=== PATIENT | male | born 1930 | race Caucasian/White ===

== ENCOUNTER 2017-08-06 07:15 | Inpatient (IN) | payer MEDICARE ==
[2017-08-06] MEDS ORDERED: Vancomycin(*) 1,000 MG in NS 0.9% 250 ML* 250 ML IVPB ONE (08:03)
[2017-08-06] MEDS ORDERED: Cefepime(*) 1 GM in NS 0.9% 50 ML* 50 ML IVPB ONE (08:03)
--- NOTE | 2017-08-06 08:45 | RAD ---
INDICATION: Sepsis. COMPARISON: Comparison is made with a prior CT of the chest from June 19, 2016 and a prior chest x-ray study from July 08, 2016. TECHNIQUE: A portable view of the chest was obtained. FINDINGS: The heart appears to be within normal limits in size. There is a retrocardiac density which correlates with a moderate sized lateral hernia on the prior CT study. The lungs are underinflated there are small bibasilar infiltrates. No pleural effusion is seen. IMPRESSION: LOW LUNG VOLUMES, SMALL BIBASILAR INFILTRATES.
[2017-08-06 08:46] LABS: Hematocrit 39 % (42-52); Hemoglobin 13.2 g/dl (14.0-18.0); Mean Corpuscular HGB Conc 34 g/dl (31-36); Mean Corpuscular Hemoglobin 31 pg (27-31); Mean Corpuscular Volume 92 fL (80-94); Mean Platelet Volume 9 um3 (7.4-10.4); Red Cell Distribution Width 14 % (10.5-15); White Blood Count 12.7 10^3/ul (3.5-10.8)
[2017-08-06 08:54] LABS: Urine Bacteria Absent (Absent); Urine Bilirubin Negative (Negative); Urine Glucose 2+(150 mg/dL) (Negative); Urine Nitrite Negative (Negative)
[2017-08-06 08:59] LABS: Albumin 3.8 g/dL (3.2-5.2); BUN/Creatinine Ratio 27.8 (8-20); C Reactive Protein 223.67 mg/L (< 5.00); Calcium 10.1 mg/dL (8.6-10.3); EGFR African American 49.6 (>60); EGFR Non-African American 38.6 (>60); Globulin 3.5 g/dL (2-4); Potassium 3.8 mmol/L (3.5-5.0); Total Bilirubin 4.8 mg/dL (0.2-1.0); Total Protein 7.3 g/dL (6.4-8.9)
[2017-08-06 09:39] LABS: Troponin I 0.08 ng/mL (<0.04)
[2017-08-06] MEDS ORDERED: NS 0.9% 1000 ML* 1,000 ML IV ONE ×2 (10:12→10:29)
--- NOTE | 2017-08-06 10:25 | RAD ---
Indication: Upper abdominal pain. Real-time sonography of the right upper quadrant was performed. The patient is combative and therefore limited in evaluation. The liver is normal in size measuring 17.4 cm in length. The gallbladder demonstrates multiple echogenic foci without definite shadowing or movement. This may represent tumefactive sludge. The gallbladder is markedly distended which may be due to prolonged fasting. The right kidney shows no hydronephrosis measuring 9.8 x 4.0 x 4.5 cm. IMPRESSION: Sludge in a distended gallbladder. No biliary duct dilatation is noted.
[2017-08-06] MEDS ORDERED: NS 0.9% 50 ML* 50 ML ONE (10:35)
[2017-08-06] MEDS ORDERED: Piperacillin/Tazobac (*) 3.375 GM ADDV.VIAL ONE (11:24)
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
[2017-08-06] MEDS ORDERED: Dextrose 50% Syringe 50 ML* 25 GM/50 ML SYRINGE IV PUSH PRN (12:21)
[2017-08-06] MEDS ORDERED: NS 0.9% 1000 ML* 1,000 ML IV SCH (12:30)
[2017-08-06] MEDS ORDERED: Vancomycin per Pharmacy* NOTE FOLLOW UP SCH (13:00)
--- NOTE | 2017-08-06 13:42 | RAD ---
INDICATION: Sepsis of unclear etiology, elevated liver enzymes. COMPARISON: Comparison is made with a prior CT of the chest, abdomen and pelvis from June 19, 2016. TECHNIQUE: A CT scan of the chest, abdomen and pelvis was performed without intravenous or oral contrast. Contiguous axial sections were obtained from the lung apices through the symphysis pubis. Images were reconstructed in the coronal and sagittal planes. FINDINGS: There are small dependent bilateral lower lobe infiltrates most consistent with atelectasis less likely pneumonia. No significant enlarged mediastinal or hilar lymph nodes are seen. The heart is mildly enlarged. No pericardial effusion is present. There are coronary artery calcifications present. The thoracic aorta is normal in caliber. The liver and spleen are normal in size without significant focal abnormality on this noncontrast study. The gallbladder is distended with faint calcified gallstones. No pericholecystic fluid is noted. The pancreas appears atrophic and otherwise unremarkable. The adrenal glands appear to be within normal limits. The right kidney is small in size. There are multiple left renal cysts present. No renal calculi are seen. The urinary bladder is distended with slight bladder wall thickening and cystic change recommend correlation for cystitis. There is a cyst located posterior to the urinary bladder on the right side possibly representing a bladder diverticulum measuring 3.9 x 3.1 cm in size which is unchanged from the prior study. The aorta is normal in caliber and there is moderate calcific plaque present. No significant enlarged retroperitoneal lymph nodes are seen. There is a moderate size hiatal hernia. The stomach, small and large bowel appear nondistended. There is moderate descending and sigmoid diverticulosis. There is no evidence for diverticulitis or colitis. No free intraperitoneal air or fluid is seen. There is enlargement of the disc space at the T8-T9 level with erosive change in the inferior endplate of the T8 vertebra and superior endplate of the T9 vertebra which is unchanged from the prior exam without new soft tissue swelling or fluid collection most consistent with a chronic discitis osteomyelitis. IMPRESSION: 1. SMALL DEPENDENT BILATERAL LOWER LOBE INFILTRATES MOST CONSISTENT WITH ATELECTASIS LESS LIKELY PNEUMONIA. 2. DISTENDED GALLBLADDER WITH SMALL GALLSTONES WITHOUT EVIDENCE FOR GALLBLADDER WALL THICKENING OR PERICHOLECYSTIC FLUID. 3. WALL THICKENING AND CYSTIC CHANGE WITHIN THE URINARY BLADDER POSSIBLY RELATED TO CHRONIC DISEASE ALTHOUGH ACUTE CYSTITIS CANNOT BE EXCLUDED. RECOMMEND CLINICAL CORRELATION. 4. 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
[2017-08-06] MEDS ORDERED: Morphine INJ* 2 MG/ML 1 ML SYRINGE (TWO MG - NEW SYRINGE VERSION) IV PRN (13:55)
[2017-08-06] MEDS ORDERED: traMADol TAB* 50 MG PO PRN ×2 (13:57→14:22)
[2017-08-06 14:36] LABS: TSH (Thyroid Stimulating Horm) 2.48 mcIU/mL (0.34-5.60)
[2017-08-06] MEDS: Pantoprazole IV* 40 MG IV SCH (15:12)
[2017-08-06] MEDS: Morphine INJ* 2 MG/ML 1 ML SYRINGE (TWO MG - NEW SYRINGE VERSION) IV PRN ×2 (16:31→21:22)
[2017-08-06] MEDS: Nystatin CREAM* 15 GM TUBE TOPICAL SCH ×2 (16:33→21:12)
--- NOTE | 2017-08-06 16:38 | HP ---
HISTORY AND PHYSICAL: DATE OF ADMISSION: 08/06/17 PROVIDER: AKILAH Barragan ATTENDING PHYSICIAN: Dr. Choi * (report dictated by Tawanna Brock NP) PRIMARY CARE PROVIDER: PABLO Sanchez CHIEF COMPLAINT: Altered mental status and abdominal pain. HISTORY OF PRESENT ILLNESS: Mr. Eagle is an 87-year-old male with a past medical history of dementia; history of failure to thrive; non-insulin- dependent type 2 diabetes; hypothyroidism; hypertension; COPD; and history of severe sepsis secondary to liver abscess in April 2016 with prolonged hospitalization in which he had a liver percutaneous strain and his hospitalization was complicated by heparin- induced thrombocytopenia and in left upper extremity DVT secondary to his PICC line. Today, he is brought to the emergency department and accompanied by his son, Stephen, who is his healthcare proxy along with the patients personal aide. It is reported over the past 2 days, he has complained of abdominal pain and felt that he was constipated. Last night, it was noted that he was confused and he was brought to the emergency department for further evaluation in the middle of the night. In the emergency department, it is noted that he meets sepsis criteria presenting with tachycardia, elevated lactic acid, and elevated troponin and a leukocytosis. As well, it is noted that his liver enzymes and total bilirubin are elevated and has a CRP of 223. Per family, the patient is normally alert and oriented x3 with some mild dementia, but is able to live at home alone with help of an aide and it is reported that he has been doing well. Approximately a year ago, he was admitted to [facility] with a diagnosis of failure to thrive and was seen at hospice at that time and he was sent to subacute rehab in which he was never signed on this hospice and did well recovering and able to thrive again. Per the son the last year, he has been doing quite well and [facility]. It is reported that prior to the 2 days of complaining of abdominal pain and constipation, he has been doing well. However, he has had some ongoing intermittent chronic wounds on his bottom, which are reported by the family and the aide to get better and then worse and then better and currently has been fairly red the last several weeks with some noted skin breakdown close to the gluteal folds. He wears a undergarment and is incontinent of urine and stool and frequently refuses being changed or showered. On evaluation in the emergency department, the patient is lying on the emergency department stretcher with his eyes closed moaning. He does follow commands and open his eyes. He is able to tell me his name and date of and he recognizes his son. He reports he is moaning because his abdomen hurts and he points to his right upper quadrant. There have been no noted fevers. No vomiting. He had a bowel movement this morning, which was formed without any signs of blood. He denies headache or vision changes. He reports generalized weakness. I spoke with the son and healthcare proxy, Stephen, who does confirm he is a DNR and DNI, but would like aggressive treatment to treat the sepsis and find the source. The patient's vital signs are stable at this time. He received 2 L of normal saline in the emergency department so far and was given vancomycin and cefepime. PAST MEDICAL HISTORY: 1. History of sacral decubiti. 2. Dementia. 3. History of failure to thrive 4. Qzw-eqjiohg-jfzavjptz type 2 diabetes. 5. Hypothyroidism. 6. Hypertension. 7. COPD. 8. History of left upper extremity DVT secondary to PICC insertion. 9. 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 Please note that this was discovered on his hospital admission in April 2016. 10. History of severe sepsis requiring prolonged hospitalization from 04/08/16 to 05/01/16, in which he was found to have a liver abscess undergoing a percutaneous drain with hospitalization complicated by heparin-induced thrombocytopenia. 11. Gout. 12. Peptic ulcer disease. CURRENT MEDICATIONS: 1. Codeine. 2. Heparin. 3. Hydromorphone. 4. Penicillin. 5. Xarelto. CODE STATUS: DNR/DNI. FAMILY HISTORY: Reviewed and noncontributory. SOCIAL HISTORY: The patient currently lives at home in his own home with help from a home health aide as well as he has 2 sons. His son, Stephen, is the healthcare proxy. He has a distant history of smoking cigars in the past. His healthcare proxy's name is Ramses Jasso" Fco, phone number [phone]. REVIEW OF SYSTEMS: A 14-point review of systems was performed, other pertinent positives and negatives as mentioned in history of present illness, otherwise negative. Please note that the patient is very lethargic on examination and is likely to be a poorly historian. PHYSICAL EXAMINATION VITAL SIGNS: Temperature 98.9, heart rate 92, respirations 17, O2 sat 95% on room air, blood pressure 126/75. HEENT: Head is normocephalic, atraumatic. Pupils are equal and reactive to light. Oropharynx is clear. Dry mucous membranes. Multiple missing teeth on his bottom lower gum. He has 2 teeth, which appeared to be in very poor dentition. No oropharyngeal erythema or edema. No oral lesions noted. NECK: Supple. No JVD noted. LUNGS: Clear to auscultation bilaterally. Good aeration throughout. CARDIAC: S1, S2. Regular rate and rhythm. No murmur, rub, or gallop appreciated. No lower extremity edema noted. ABDOMEN: Soft, distended, round, hypoactive bowel sounds, tenderness to right upper quadrant and left upper quadrant. Slight guarding. EXTREMITIES: No clubbing, cyanosis, or edema. NEURO: Alert, lying in bed with eyes closed. Responds to most questions follows commands. He is oriented to self, place, and son, but is not able to tell me the date. SKIN: He has a large area on his bottom of erythema, bright red, with small opens areas on both right and left glutes near the gluteal fold - no drainage or foul smell. DIAGNOSTIC STUDIES/LAB DATA: Sodium 137, potassium 3.8, chloride 100, carbon dioxide 24, anion gap 13, BUN 47, creatinine 1.69, glucose 236, lactic acid 4.5 , calcium 10.1, total bilirubin 4.80, AST 426, ALT 768, alkaline phosphatase 128. Troponin 0.08. C-reactive protein 223.67, total protein 7.3, albumin 3.8. INR 1.49. WBCs is 12.7, RBC 4.20, Hgb 13.2, HCT 39, MCV 92, MCH 31, MCHC 34, RDW 14, ret count 140. Urinalysis, 2+ protein, 1+ blood. Positive for urobilinogen. Negative for nitrites and leukocyte esterase, 2+ glucose, squamous epithelial cells present, 1+ WBCs. ASSESSMENT AND PLAN: Mr. Eagle is an 87-year-old male with a past medical history of ezm-nlsfbjp-rnjoilspn type 2 diabetes; dementia; hypothyroidism; hypertension; chronic obstructive pulmonary disease; history of prolonged hospitalization for severe sepsis secondary to liver abscess in April 2016, history of heparin induced thrombocytopenia, history of osteomyelitis/diskitis T8-9, who presents to the emergency department today with report of 2 days complaint of abdominal pain, now with confusion, who was found to meet criteria for sepsis. 1. Sepsis unclear etiology: The patient was given 2 L of normal saline in the emergency department and started on broad spectrum antibiotics with vancomycin and cefepime. Blood cultures were sent on arrival. The patient has a lactic acidosis of 4.57, this was at 8 a.m. this morning. We will recheck now. Continue IV fluids with normal saline at 125 mL/hour. His blood pressures are stable. His tachycardia has resolved. It is noted he has acute kidney injury with a creatinine of 1.69. We will recheck in the morning. His urinalysis is unremarkable for infection. Unclear source, it is possible that he does have cellulitis on his bottom and it is very very erythematous; however, this looks more like a diaper dermatitis. I am concerned about his complaint of abdominal pain and pointing to his right upper quadrant. Plan to obtain an abdomen and pelvis CT without contrast now. He did undergo a gallbladder ultrasound in emergency department, which showed "sludge and a distended gallbladder. No biliary duct dilatation is noted." I have spoken to the manager ecommerce Dr. Gil , who agrees with the plan of care as well as I have a put consult in to talk Dr. Sullivan, business development specialist and I am awaiting a callback. We will check liver enzymes in the morning. Continue vancomycin and cefepime. Admit to ICU. Place Swenson, strict and Is and Os. At this time, the patient will be n.p.o. due to his confusion and lethargy. 2. Transaminitis, unclear etiology again as stated above. It is possible he passed a stone? Plan for CT abdomen and pelvis WO. Will add on ammonia level as well as hepatitis panel. Awaiting GI consult. 3. Elevated troponin presents with a troponin of 0.08 in the setting of sepsis. No acute complaints of chest pain or shortness of breath. There has been no EKG as of yet. We will obtain EKG now. The patient was noted to be in a normal sinus rhythm on the monitor. 4. Rcb-youjhtu-kyakxesck type 2 diabetes. Hold metformin, fingerstick blood glucose q.6 with lispro sliding scale. 5. Gastroesophageal reflux disease/history of peptic ulcer disease: Protonix 40 mg q.24 hours IV. 6. Hypertension. Normotensive in the emergency department. Hold chlorthalidone. 7. Benign prostatic hypertrophy: Continue Flomax. 8. Hypothyroidism: Continue Synthroid 75 mcg daily add on TSH. 9. DVT prophylaxis: Due to this history of heparin induced thrombocytopenia will place on arixtra 10. Code status: DNR/DNI. TIME SPENT: Approximately 75 minutes was spent on this admission. This case was discussed with attending physician, Dr. Choi, who agrees with the plan of care. TAWANNA BROCK, ANTON [id number]/[facility] #: [id number] KATTY
[2017-08-06 18:47] LABS: Albumin 3.3 g/dL (3.2-5.2); Direct Bilirubin 2.7 mg/dL (0.03-0.18); Globulin 3.2 g/dL (2-4); Indirect Bilirubin 1.3 mg/dL (0.3-1.0); Total Protein 6.5 g/dL (6.4-8.9)
[2017-08-06] MEDS: Insulin LISPRO* 1 UNITS UNIT SUBCUT SCH ×2 (19:47→23:56)
[2017-08-06] MEDS: Fondaparinux* 2.5 MG/0.5 ML SYRINGE SUBCUT SCH (21:12)
[2017-08-06] MEDS: NS 0.9% 1000 ML* 1,000 ML IV SCH (21:13)
[2017-08-06] MEDS ORDERED: Cefepime(*) 1 GM in NS 0.9% 50 ML* 50 ML IVPB SCH (22:00)
--- NOTE | 2017-08-06 23:54 | CONS ---
GASTROENTEROLOGY CONSULT: DATE: 08/06/17 CONSULTING PHYSICIANS: Kathy Choi DO/JOHNNY Barragan REASON FOR CONSULTATION: An 87-year-old man with abdominal pain, fever to 101, and elevated white count and transaminases and bilirubin 4.8 with a history 15 months ago of liver abscess treated with percutaneous drain and prolonged antibiotics. Mr. Eagle was said to be at his baseline at home with aides coming in and then began complaining of constipation a couple of days ago. He then became more confused and poorly responsive. He started to complain of right upper quadrant pain. In the ER, he seemed to have pain over his abdomen in a widespread pattern and he was poorly responsive though did recognize his son. He was afebrile in the ER (101 in the ICU later on in the ). His white count was up at 12.7. Imaging showed a distended gallbladder with stones both ultrasound and CT. There is said to be no biliary dilation though the exact common duct diameter was not given. PAST MEDICAL HISTORY: 1. Dementia. 2. Sacral decubiti - waxing and waning. 3. Failure to thrive - he had a hospice consult last year briefly. 4. Type 2 diabetes. 5. COPD. 6. Heparin-induced thrombocytopenia - on Arixtra this admission. 7. Liver abscess - strep presumably from advanced diverticulosis. 8. Advanced diverticulosis - seen by Dr. Vizcarra at colonoscopy. 9. Hypothyroidism - on replacement. SOCIAL HISTORY: Lives alone with home health aides coming in. He has two sons and Stephen is his healthcare proxy ([phone]). He had been a DNR, do not intubate. REVIEW OF SYSTEMS: No history of AL, valvular heart disease, hepatitis, jaundice, hematuria, or rectal bleeding. He has waxing and waning sacral decubiti. EXAM: He is an elderly man in the ICU, lying in bed, moaning periodically. He cannot engage in any conversation. The RN reported that he received some morphine intravenously about an hour and 45 minutes ago. He has poor dentition. Sclerae are mildly icteric. There is no adenopathy. His neck moves easily. Breath sounds are hard to assess. Does not respond to command and is moaning. Heart sounds are regular with frequent PVCs, unifocal. Abdomen - bowel sounds intact. The abdomen is distended, somewhat firm, and pressure in all 4 quadrants, elicits a low wail or moan. Rectal deferred. Extremities have SCDs on but showed no edema at the ankles. LABS: ALT 768, alkaline phosphatase 128, bilirubin 4.8, and April 2016 his highest ALT was 572, there being a 8-day interval with elevated LFTs in a rather unimodal distribution though at that time, the bilirubin never went more than 1.5 and the alkaline phosphatase never elevated at all. IMPRESSION: This 87-year-old man presents appearing septic and with elevated LFTs. The pattern of LFTs is strongly suggestive of passage of a common duct stone. Stones were seen on imaging and there is no other localized inflammatory process present on CT. Last year with the liver abcess (? colonic seeding or biliary) the bili was up minimally and alk phos never moved so this presentation is definitely different. The most important issue will be to follow his ALT and potentially on imaging, bile duct size, and an MRCP to look for common duct stones. Hopefully , this will not occur as he is high risk for any intervention. [id number]/[facility] #: [id number] [facility]
[2017-08-07] MEDS: Morphine INJ* 2 MG/ML 1 ML SYRINGE (TWO MG - NEW SYRINGE VERSION) IV PRN ×4 (01:41→20:11)
[2017-08-07] MEDS: NS 0.9% 1000 ML* 1,000 ML IV SCH ×2 (06:00→16:02)
[2017-08-07 06:18] LABS: Add Diff/Slide Review? Slide Review Added; Comments Flag Yes; Hematocrit 36 % (42-52); Hemoglobin 12.5 g/dl (14.0-18.0); Mean Corpuscular HGB Conc 35 g/dl (31-36); Mean Corpuscular Hemoglobin 32 pg (27-31); Mean Corpuscular Volume 92 fL (80-94); Mean Platelet Volume 9 um3 (7.4-10.4); Red Blood Count 3.94 10^6/ul (4.0-5.4); Red Cell Distribution Width 14 % (10.5-15); White Blood Count 10.1 10^3/ul (3.5-10.8)
[2017-08-07] MEDS: Insulin LISPRO* 1 UNITS UNIT SUBCUT SCH ×4 (06:19→23:53)
[2017-08-07 06:33] LABS: Albumin 3.3 g/dL (3.2-5.2); BUN/Creatinine Ratio 26.6 (8-20); Calcium 9.5 mg/dL (8.6-10.3); EGFR African American 70.9 (>60); EGFR Non-African American 55.1 (>60); Globulin 3.8 g/dL (2-4); Total Bilirubin 2.5 mg/dL (0.2-1.0); Total Protein 7.1 g/dL (6.4-8.9)
[2017-08-07] MEDS ORDERED: Vancomycin(*) 750 MG in NS 0.9% 250 ML* 250 ML IVPB SCH (08:00)
--- NOTE | 2017-08-07 08:43 | PN ---
Subjective Date of Service: 08/07/17 Interval History: Pt apparently was awake and moaning during the night. continues to be lethargic and disoriented Objective Active Medications: Dextrose (D50w Syringe 50 Ml*) 12.5 gm IV PUSH .FOR FS < 60 - SS PRN PRN Reason: FS < 60 Fondaparinux (Arixtra*) 2.5 mg SUBCUT DAILY [facility] Last Admin: 08/06/17 21:12 Dose: 2.5 mg Sodium Chloride (Ns 0.9% 1000 Ml*) 1,000 mls @ 100 mls/hr IV PER RATE [facility] Last Admin: 08/07/17 06:00 Dose: 100 mls/hr Potassium Chloride (Potassium Chloride 20 Meq/100 Ml Ivpremix*) 20 meq in 100 mls @ 50 mls/hr IV Q2H [facility] Stop: 08/07/17 11:59 Cefepime HCl (Maxipime 2 Gm In Dextrose Duplex (*)) 2 gm in 50 mls @ 100 mls/ hr IV Q24H [facility] Insulin Human Lispro (Humalog*) 0 units SUBCUT Q6HR [facility] PRN Reason: Protocol Last Admin: 08/07/17 06:19 Dose: 1 units Levothyroxine Sodium (Synthroid Tab*) 75 mcg PO 0800 [facility] Morphine Sulfate (Morphine Inj (Syringe)*) 2 mg IV Q4H PRN PRN Reason: PAIN - MILD Last Admin: 08/07/17 01:41 Dose: 2 mg Nystatin (Nystatin Cream*) 1 applic TOPICAL TID [facility] Last Admin: 08/06/17 21:12 Dose: 1 applic Pantoprazole Sodium (Protonix Iv*) 40 mg IV Q24H [facility] Last Admin: 08/06/17 15:12 Dose: 40 mg Pharmacy Consult (Vancomycin Per Pharmacy*) 1 note FOLLOW UP .VANC PER PHARMACY [facility] Pharmacy Profile Note (Vancomycin Trough Check) 1 note FOLLOW UP ONCE ONE Stop: 08/09/17 07:31 Tamsulosin HCl (Flomax Cap*) 0.4 mg PO DAILY [facility] Vital Signs 08/06/17 08/06/17 08/06/17 13:37 13:50 13:51 Temperature 99 F Pulse Rate 89 Respiratory 17 18 17 Rate Blood Pressure 129/72 164/151 (mmHg) O2 Sat by Pulse 95 Oximetry 08/06/17 08/06/17 08/06/17 14:00 14:01 14:02 Temperature 99.3 F Pulse Rate 91 Respiratory 20 17 18 Rate Blood Pressure 147/86 147/86 (mmHg) O2 Sat by Pulse 91 Oximetry 08/06/17 08/06/17 08/06/17 14:15 14:30 14:46 Temperature Pulse Rate 88 87 Respiratory 15 18 14 Rate Blood Pressure 147/84 147/87 147/94 (mmHg) O2 Sat by Pulse 100 95 Oximetry 08/06/17 08/06/17 08/06/17 15:00 15:01 15:16 Temperature Pulse Rate 107 111 92 Respiratory 25 27 21 Rate Blood Pressure 154/95 136/103 (mmHg) O2 Sat by Pulse 96 92 93 Oximetry 08/06/17 08/06/17 08/06/17 15:43 15:45 16:00 Temperature 101.8 F Pulse Rate 90 93 105 Respiratory 20 22 21 Rate Blood Pressure 130/93 133/73 (mmHg) O2 Sat by Pulse 92 93 94 Oximetry 08/06/17 08/06/17 08/06/17 16:01 16:15 16:31 Temperature Pulse Rate 106 110 105 Respiratory 23 23 35 Rate Blood Pressure 135/79 130/80 139/67 (mmHg) O2 Sat by Pulse 94 93 94 Oximetry 08/06/17 08/06/17 08/06/17 17:00 17:30 18:00 Temperature 101.7 F 101.1 F 100.6 F Pulse Rate 92 100 99 Respiratory 20 20 20 Rate Blood Pressure 110/61 115/63 122/71 (mmHg) O2 Sat by Pulse 93 93 95 Oximetry 08/06/17 08/06/17 08/06/17 19:00 19:26 19:30 Temperature 100.2 F 100.2 F 100.2 F Pulse Rate 97 97 94 Respiratory 19 16 17 Rate Blood Pressure 129/78 121/70 (mmHg) O2 Sat by Pulse 93 95 94 Oximetry 08/06/17 08/06/17 08/06/17 20:00 20:30 21:00 Temperature 100.2 F 100.0 F 100.2 F Pulse Rate 96 96 81 Respiratory 19 17 17 Rate Blood Pressure 125/76 120/72 94/65 (mmHg) O2 Sat by Pulse 95 95 95 Oximetry 08/06/17 08/06/17 08/06/17 21:22 21:24 21:30 Temperature 100.2 F 100.2 F Pulse Rate 97 88 Respiratory 18 18 18 Rate Blood Pressure 120/77 117/66 (mmHg) O2 Sat by Pulse 96 94 Oximetry 08/06/17 08/06/17 08/06/17 22:00 22:30 23:00 Temperature 100.0 F 100.0 F 99.9 F Pulse Rate 85 85 84 Respiratory 18 16 16 Rate Blood Pressure 114/63 124/71 114/76 (mmHg) O2 Sat by Pulse 95 97 96 Oximetry 08/06/17 08/07/17 08/07/17 23:30 00:00 00:04 Temperature 99.7 F 99.9 F 99.9 F Pulse Rate 86 91 91 Respiratory 15 18 16 Rate Blood Pressure 131/79 140/84 (mmHg) O2 Sat by Pulse 99 97 95 Oximetry 08/07/17 08/07/17 08/07/17 00:30 01:00 01:30 Temperature 99.9 F 99.9 F 100.0 F Pulse Rate 93 86 86 Respiratory 17 16 17 Rate Blood Pressure 130/85 129/78 134/82 (mmHg) O2 Sat by Pulse 92 95 98 Oximetry 08/07/17 08/07/17 08/07/17 01:41 02:00 02:30 Temperature 100.0 F 99.9 F Pulse Rate 84 85 Respiratory 16 15 18 Rate Blood Pressure 98/66 120/67 (mmHg) O2 Sat by Pulse 95 96 Oximetry 08/07/17 08/07/17 08/07/17 03:00 03:30 04:00 Temperature 99.7 F 99.5 F 99.7 F Pulse Rate 83 85 95 Respiratory 17 17 16 Rate Blood Pressure 119/66 129/68 129/72 (mmHg) O2 Sat by Pulse 99 97 94 Oximetry 08/07/17 08/07/17 08/07/17 04:30 05:00 05:30 Temperature 99.7 F 99.7 F 99.7 F Pulse Rate 88 85 85 Respiratory 14 15 16 Rate Blood Pressure 114/78 116/65 116/64 (mmHg) O2 Sat by Pulse 95 95 94 Oximetry 08/07/17 08/07/17 08/07/17 06:00 06:30 07:00 Temperature 99.7 F 99.5 F 99.5 F Pulse Rate 96 94 82 Respiratory 16 15 16 Rate Blood Pressure 123/72 123/68 117/66 (mmHg) O2 Sat by Pulse 94 95 96 Oximetry Oxygen Devices in Use Now: None Appearance: 87 yo M, responds to his name, lethargic, moaning when moved, not oriented Eyes: No Scleral Icterus, PERRLA Ears/Nose/Mouth/Throat: NL Teeth, Lips, Gums, Mucous Membranes Moist Neck: NL Appearance and Movements; NL JVP, Trachea Midline Respiratory: Symmetrical Chest Expansion and Respiratory Effort, - - crackles at bases Cardiovascular: NL Sounds; No Murmurs; No JVD, RRR Abdominal: - - distended, tympanic, soft, tender in epigastrium , no rebound, no guarding, BS+ Lymphatic: No Cervical Adenopathy Extremities: No Edema, No Clubbing, Cyanosis Skin: No Nodules or Sclerosis, - - both buttocks coveed with a red rash-suspect alireza itertrigo Neurological: NL Muscle Strength and Tone Result Diagrams: 08/07/17 06:05 08/07/17 06:05 Additional Lab and Data: Lab Results 08/06/17 08/06/17 08/06/17 Range/Units 08:15 08:15 08:15 WBC 12.7 H (3.5-10.8) 10^3/ul RBC 4.20 (4.0-5.4) 10^6/ul Hgb 13.2 L (14.0-18.0) g/dl Hct 39 L (42-52) % MCV 92 (80-94) fL MCH 31 (27-31) pg MCHC 34 (31-36) g/dl RDW 14 (10.5-15) % Plt Count 170 (150-450) 10^3/ul MPV 9 (7.4-10.4) um3 Neut % (Auto) 93.8 H (38-83) % Lymph % (Auto) 3.1 L (25-47) % [place] % (Auto) 2.6 (1-9) % Eos % (Auto) 0.2 (0-6) % Baso % (Auto) 0.3 (0-2) % Absolute Neuts (auto) 11.9 H (1.5-7.7) 10^3/ul Absolute Lymphs (auto) 0.4 L (1.0-4.8) 10^3/ul Absolute Monos (auto) 0.3 (0-0.8) 10^3/ul Absolute Eos (auto) 0 (0-0.6) 10^3/ul Absolute Basos (auto) 0 (0-0.2) 10^3/ul Absolute Nucleated RBC 0.02 10^3/ul Nucleated RBC % 0.2 INR (Anticoag Therapy) 1.49 H (0.89-1.11) Sodium 137 (133-145) mmol/L Potassium 3.8 (3.5-5.0) mmol/L Chloride 100 L (101-111) mmol/L Carbon Dioxide 24 (22-32) mmol/L Anion Gap 13 H (2-11) mmol/L BUN 47 H (6-24) mg/dL Creatinine 1.69 H (0.67-1.17) mg/dL Est GFR ( Amer) 49.6 (>60) Est GFR (Non-Af Amer) 38.6 (>60) BUN/Creatinine Ratio 27.8 H (8-20) Glucose 236 H (70-100) mg/dL Lactic Acid (0.5-2.0) mmol/L Calcium 10.1 (8.6-10.3) mg/dL Total Bilirubin 4.80 H (0.2-1.0) mg/dL AST 426 H (13-39) U/L ALT 768 H (7-52) U/L Alkaline Phosphatase 128 H (34-104) U/L Troponin I 0.08 H* (<0.04) ng/mL C-Reactive Protein 223.67 H (< 5.00) mg/L Total Protein 7.3 (6.4-8.9) g/dL Albumin 3.8 (3.2-5.2) g/dL Globulin 3.5 (2-4) g/dL Albumin/Globulin Ratio 1.1 (1-3) Urine Color Urine Appearance Urine pH (5-9) Ur Specific [place] (1.010-1.030) Urine Protein (Negative) Urine Ketones (Negative) Urine Blood (Negative) Urine Nitrate (Negative) Urine Bilirubin (Negative) Urine Urobilinogen (Negative) Ur Leukocyte Esterase (Negative) Urine WBC (Auto) (Absent) Urine RBC (Auto) (Absent) Ur Squamous Epith Cells (Absent) Urine Bacteria (Absent) Urine Glucose (Negative) 08/06/17 08/06/17 Range/Units 08:15 08:15 WBC (3.5-10.8) 10^3/ul RBC (4.0-5.4) 10^6/ul Hgb (14.0-18.0) g/dl Hct (42-52) % MCV (80-94) fL MCH (27-31) pg MCHC (31-36) g/dl RDW (10.5-15) % Plt Count (150-450) 10^3/ul MPV (7.4-10.4) um3 Neut % (Auto) (38-83) % Lymph % (Auto) (25-47) % Buchanan % (Auto) (1-9) % Eos % (Auto) (0-6) % Baso % (Auto) (0-2) % Absolute Neuts (auto) (1.5-7.7) 10^3/ul Absolute Lymphs (auto) (1.0-4.8) 10^3/ul Absolute Monos (auto) (0-0.8) 10^3/ul Absolute Eos (auto) (0-0.6) 10^3/ul Absolute Basos (auto) (0-0.2) 10^3/ul Absolute Nucleated RBC 10^3/ul Nucleated RBC % INR (Anticoag Therapy) (0.89-1.11) Sodium (133-145) mmol/L Potassium (3.5-5.0) mmol/L Chloride (101-111) mmol/L Carbon Dioxide (22-32) mmol/L Anion Gap (2-11) mmol/L BUN (6-24) mg/dL Creatinine (0.67-1.17) mg/dL Est GFR ( Amer) (>60) Est GFR (Non-Af Amer) (>60) BUN/Creatinine Ratio (8-20) Glucose (70-100) mg/dL Lactic Acid 4.5 H* (0.5-2.0) mmol/L Calcium (8.6-10.3) mg/dL Total Bilirubin (0.2-1.0) mg/dL AST (13-39) U/L ALT (7-52) U/L Alkaline Phosphatase (34-104) U/L Troponin I (<0.04) ng/mL C-Reactive Protein (< 5.00) mg/L Total Protein (6.4-8.9) g/dL Albumin (3.2-5.2) g/dL Globulin (2-4) g/dL Albumin/Globulin Ratio (1-3) Urine Color K[place]issa Urine Appearance Cloudy Urine pH 6.0 (5-9) Ur Specific [place] 1.017 (1.010-1.030) Urine Protein 2+(100 mg/dl) H (Negative) Urine Ketones Negative (Negative) Urine Blood 1+ H (Negative) Urine Nitrate Negative (Negative) Urine Bilirubin Negative (Negative) Urine Urobilinogen Positive H (Negative) Ur Leukocyte Esterase Negative (Negative) Urine WBC (Auto) 1+(6-10/hpf) H (Absent) Urine RBC (Auto) Trace(0-2/hpf) (Absent) Ur Squamous Epith Cells Present H (Absent) Urine Bacteria Absent (Absent) Urine Glucose 2+(150 mg/dl) H (Negative) Microbiology and Other Data: Microbiology 08/06/17 14:25 Nasal Screen MRSA (PCR)(ADRI[facility]N) - Final Nasal Mrsa Negative Influenza Types A,B Antigen (ADRI[facility]N) - Final Specimen received for Influenza A/B Molecular testing Assess/Plan/Problems-Billing Assessment: 86 yo M with hx of HTN, hypothyroidism, DM, COPD , liver abscess and thoracic spine osteo in 03/2016, as well as dementia presents with sepsis and lethargy - Patient Problems (1) Sepsis Comment: With gram negative septicemia cont Cefepime. Flagyl not avaliable in pharmacy Leukocytosis resolved. Pt is hemodynamically stable will change NPO to clears diet D/w Dr. Sullivan and Dr. Candelario. no need for further studies for now. suspect cholangitis from passing CBD stone. will recheck labs in aM. 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 (8) Encephalopathy acute Comment: Pt has underlying dementia for which he is on Aricept, but up to this admission he was able to live independently with firer helper. today continues to have septis encephalopathy (9) DVT prophylaxis Comment: cont Arixtra (10) Candidal skin infection Comment: cont nystatin cream to buttocks, and barrier cream as recommended by wound care Status and Disposition: inpatient
[2017-08-07] MEDS ORDERED: metroNIDAZOLE IV 500 MG/100ML* 500 MG/100 ML BAG IVPB SCH (09:00)
[2017-08-07] MEDS ORDERED: Aspirin EC Low Dose* 81 MG TAB.EC PO SCH (09:00)
[2017-08-07] MEDS: KCL 20 MEQ/100 ML IVPREMIX* 20 MEQ/100 ML BAG IV SCH ×2 (09:59→11:45)
[2017-08-07] MEDS: Fondaparinux* 2.5 MG/0.5 ML SYRINGE SUBCUT SCH (10:08)
[2017-08-07] MEDS: Nystatin CREAM* 15 GM TUBE TOPICAL SCH ×3 (11:45→20:11)
[2017-08-07] MEDS: Levothyroxine TAB* 75 MCG TAB PO SCH (11:46)
[2017-08-07] MEDS: Tamsulosin CAP* 0.4 MG PO SCH (11:46)
--- NOTE | 2017-08-07 12:29 | CONS ---
CC: Dr. Alonso Candelario; Dr. Benjamín Otero; Dr. Elizabeth Gee CONSULTATION REPORT: DATE OF CONSULT: 08/07/17 HISTORY OF PRESENT ILLNESS: The patient is an 87-year-old male with a complex past medical history, multiple medical problems, but germane to the current situation, he was here little over a year ago with a liver abscess and cholecystitis. Had percutaneous drainage and had a long tereso course. It was unclear that he would event be able to pull through, but he subsequently did and has been managing since then and now presents with abdominal pain. He does have a history of dementia and is little difficult to get any detail. PHYSICAL EXAM: On examination today, he is able to be aroused and answered questions, although he seems to answer questions inconsistently and it is unclear whether I am getting reliable answers. There is faint look of jaundice in his face. He is breathing easily. He does not appear uncomfortable. His abdomen is bloated and soft throughout. There seems to be some tenderness in the right upper quadrant, although as I examined multiple areas around the abdomen, the area of tenderness seems to shift around at times; sometimes he will say that an area I poke is not bothering him, sometimes he will kind of jump as if it did seem to bother him. It is hard to say whether he has a lot of pain or I am more startling him. In case, there certainly no board-like abdomen, no guarding, no peritonitis, no rebound tenderness. DIAGNOSTIC STUDIES/LAB DATA: His liver chemistries are quite elevated on admission and are starting to come down now on the second day. His white blood count has also returned to normal, though he continues to have a left shift. His CT scan and ultrasound showed some sludge in the gallbladder. No gallbladder wall thickening or pericholecystic fluid. No sign of recurrent liver abscess. Lipase is pending. IMPRESSION AND PLAN: An 87-year-old male with multiple medical problems and a history of liver abscess, now comes back with abdominal pain, gram-negative bacteremia, and elevated liver chemistries. Putting it all together, I have to suspect that he might have a passed common duct stone, which would explain the elevated bilirubin and transaminases and now they have passed, maybe things are starting to calm down. I think it is reasonable to continue antibiotics and watch his liver chemistries. I do not think that he has enough evidence to suggest that he has acute cholecystitis and therefore, I do not think he needs surgical intervention. I do not think he needs urgent cholecystectomy nor do I think he needs percutaneous cholecystostomy. Should his chemistries fail to continue to normalize, then MRCP might be warranted to examine the biliary flow. In addition, nuclear biliary scan may be warranted at some point if his chemistries do not continue to normalize. We will continue to see him in consultation along with you. [id number]/[facility] #: [id number] MTDD
[2017-08-07] MEDS ORDERED: Cefepime(*) 2 GM in NS 0.9% 50 ML* 50 ML IVPB SCH (13:00)
[2017-08-07] MEDS ORDERED: Cefepime 2 GM in Dextrose(*) 2 GM/50 ML BAG IV SCH (13:00)
[2017-08-07] MEDS: Pantoprazole IV* 40 MG IV SCH (14:17)
[2017-08-08] MEDS ORDERED: Potassium Chlor TAB* 20 MEQ TAB.ER PO ONE (00:23)
[2017-08-08] MEDS: KCL 20 MEQ/100 ML IVPREMIX* 20 MEQ/100 ML BAG IV SCH ×4 (00:36→10:27)
[2017-08-08 00:40] LABS: Magnesium 2.1 mg/dL (1.9-2.7)
[2017-08-08] MEDS: Morphine INJ* 2 MG/ML 1 ML SYRINGE (TWO MG - NEW SYRINGE VERSION) IV PRN ×5 (01:34→19:38)
[2017-08-08] MEDS: NS 0.9% 1000 ML* 1,000 ML IV SCH (01:41)
[2017-08-08 05:42] LABS: Hematocrit 42 % (42-52); Hemoglobin 14.4 g/dl (14.0-18.0); Mean Corpuscular HGB Conc 35 g/dl (31-36); Mean Corpuscular Hemoglobin 32 pg (27-31); Mean Corpuscular Volume 92 fL (80-94); Mean Platelet Volume 9 um3 (7.4-10.4); Red Blood Count 4.55 10^6/ul (4.0-5.4); Red Cell Distribution Width 15 % (10.5-15); White Blood Count 10.4 10^3/ul (3.5-10.8)
[2017-08-08 05:47] LABS: Add Diff/Slide Review? Slide Review Added; Comments Flag Yes
[2017-08-08 06:02] LABS: Albumin 3.3 g/dL (3.2-5.2); BUN/Creatinine Ratio 24.2 (8-20); Calcium 9.7 mg/dL (8.6-10.3); EGFR African American 96.4 (>60); Globulin 4.2 g/dL (2-4); Total Bilirubin 1.9 mg/dL (0.2-1.0); Total Protein 7.5 g/dL (6.4-8.9)
[2017-08-08] MEDS: Insulin LISPRO* 1 UNITS UNIT SUBCUT SCH ×4 (06:10→23:28)
[2017-08-08] MEDS: Fondaparinux* 2.5 MG/0.5 ML SYRINGE SUBCUT SCH (07:59)
[2017-08-08] MEDS: Levothyroxine TAB* 75 MCG TAB PO SCH (07:59)
[2017-08-08] MEDS: Nystatin CREAM* 15 GM TUBE TOPICAL SCH ×3 (08:00→23:18)
--- NOTE | 2017-08-08 08:25 | PN ---
Subjective Date of Service: 08/08/17 Interval History: Pt states he has pain, states it is in the same place but won't point to it. Objective Active Medications: Dextrose (D50w Syringe 50 Ml*) 12.5 gm IV PUSH .FOR FS < 60 - SS PRN PRN Reason: FS < 60 Fondaparinux (Arixtra*) 2.5 mg SUBCUT DAILY [facility] Last Admin: 08/08/17 07:59 Dose: 2.5 mg Cefepime HCl (Maxipime 2 Gm In Dextrose Duplex (*)) 2 gm in 50 mls @ 100 mls/ hr IV Q24H [facility] Last Admin: 08/07/17 15:01 Dose: 100 mls/hr Potassium Chloride/Dextrose (D5w 1/2 Ns Kcl 20 Meq 1000 Ml*) 1,000 mls @ 100 mls/hr IV PER RATE [facility] Potassium Chloride (Potassium Chloride 20 Meq/100 Ml Ivpremix*) 20 meq in 100 mls @ 50 mls/hr IV Q2H [facility] Stop: 08/08/17 11:59 Insulin Human Lispro (Humalog*) 0 units SUBCUT Q6HR [facility] PRN Reason: Protocol Last Admin: 08/08/17 06:10 Dose: Not Given Levothyroxine Sodium (Synthroid Tab*) 75 mcg PO 0800 [facility] Last Admin: 08/08/17 07:59 Dose: 75 mcg Morphine Sulfate (Morphine Inj (Syringe)*) 2 mg IV Q4H PRN PRN Reason: PAIN - MILD Last Admin: 08/08/17 05:18 Dose: 2 mg Nystatin (Nystatin Cream*) 1 applic TOPICAL TID [facility] Last Admin: 08/08/17 08:00 Dose: 1 applic Pantoprazole Sodium (Protonix Iv*) 40 mg IV Q24H [facility] Last Admin: 08/07/17 14:17 Dose: 40 mg Tamsulosin HCl (Flomax Cap*) 0.4 mg PO DAILY [facility] Last Admin: 08/07/17 11:46 Dose: 0.4 mg Vital Signs 08/07/17 08/07/17 08/07/17 09:30 10:00 10:04 Temperature 99.9 F 99.3 F Pulse Rate 94 93 Respiratory 17 17 19 Rate Blood Pressure 127/65 115/69 (mmHg) O2 Sat by Pulse 96 96 Oximetry 11/01/1808/07/17 08/07/17 10:30 11:00 11:30 Temperature 99.9 F 99.7 F 99.7 F Pulse Rate 87 86 86 Respiratory 16 17 17 Rate Blood Pressure 116/72 122/72 124/70 (mmHg) O2 Sat by Pulse 98 95 96 Oximetry 08/07/17 08/07/17 08/07/17 12:00 12:30 13:00 Temperature 99.9 F 99.9 F 92.3 F Pulse Rate 95 92 95 Respiratory 18 13 10 Rate Blood Pressure 136/97 119/72 140/82 (mmHg) O2 Sat by Pulse 93 97 100 Oximetry 08/07/17 08/07/17 08/07/17 13:31 14:00 14:30 Temperature 93.4 F 100.8 F 100.9 F Pulse Rate 112 99 100 Respiratory 16 14 12 Rate Blood Pressure 141/111 139/71 111/67 (mmHg) O2 Sat by Pulse 96 97 96 Oximetry 08/07/17 08/07/17 08/07/17 15:00 15:30 16:00 Temperature 100.6 F 100.2 F 100.0 F Pulse Rate 96 97 96 Respiratory 15 15 19 Rate Blood Pressure 121/66 128/75 128/77 (mmHg) O2 Sat by Pulse 97 92 97 Oximetry 08/07/17 08/07/17 08/07/17 16:21 17:00 18:00 Temperature 99.9 F 99.7 F Pulse Rate 93 89 Respiratory 17 15 11 Rate Blood Pressure 133/78 144/86 (mmHg) O2 Sat by Pulse 94 93 Oximetry 08/07/17 08/07/17 08/07/17 19:00 20:00 20:11 Temperature 99.9 F 99.9 F Pulse Rate 94 93 Respiratory 15 12 20 Rate Blood Pressure 132/71 117/79 (mmHg) O2 Sat by Pulse 97 94 Oximetry 08/07/17 08/07/17 08/07/17 21:00 22:00 23:00 Temperature 100.0 F 99.9 F 100.0 F Pulse Rate 92 91 97 Respiratory 21 14 15 Rate Blood Pressure 123/80 137/83 129/88 (mmHg) O2 Sat by Pulse 97 100 95 Oximetry 08/08/17 08/08/17 08/08/17 00:00 00:03 01:34 EDT Temperature 100.4 F 100.4 F Pulse Rate 100 84 Respiratory 19 14 16 Rate Blood Pressure 138/71 (mmHg) O2 Sat by Pulse 97 95 Oximetry 08/08/17 08/08/17 08/08/17 01:00 EST 01:01 EST 02:00 Temperature 100.6 F 100.6 F 100.2 F Pulse Rate 99 74 94 Respiratory 13 9 15 Rate Blood Pressure 128/79 121/69 130/93 (mmHg) O2 Sat by Pulse 94 92 97 Oximetry 08/08/17 08/08/17 08/08/17 03:00 04:00 05:00 Temperature 99.9 F 99.7 F 99.9 F Pulse Rate 93 93 95 Respiratory 11 11 15 Rate Blood Pressure 149/90 144/90 150/83 (mmHg) O2 Sat by Pulse 94 95 99 Oximetry 08/08/17 08/08/17 08/08/17 05:18 06:00 07:27 Temperature 99.1 F 98.5 F Pulse Rate 91 Respiratory 16 10 Rate Blood Pressure 131/78 (mmHg) O2 Sat by Pulse 94 Oximetry Oxygen Devices in Use Now: None Appearance: Alert, head partly up in bed. Passive. Looks comfortable at rest. Eyes: No Scleral Icterus Neck: NL Appearance and Movements; NL JVP, No Thyroid Enlargement, Masses Respiratory: Symmetrical Chest Expansion and Respiratory Effort, Clear to Auscultation, Clear to Percussion, Clear to Palpation Cardiovascular: NL Sounds; No Murmurs; No JVD, RRR, No Edema Abdominal: No Hepatosplenomegaly, - - mod RUQ tenderness. Nl BS. Soft. No mass Extremities: No Edema, No Clubbing, Cyanosis, - Skin: No Rash or Ulcers, No Nodules or Sclerosis, - Neurological: NL Sensation - Poorly oriented. Irritable. Moves all limbs. Result Diagrams: 08/08/17 05:30 08/08/17 05:30 Additional Lab and Data: Lab Results 08/06/17 08/06/17 08/06/17 Range/Units 08:15 08:15 08:15 WBC 12.7 H (3.5-10.8) 10^3/ul RBC 4.20 (4.0-5.4) 10^6/ul Hgb 13.2 L (14.0-18.0) g/dl Hct 39 L (42-52) % MCV 92 (80-94) fL MCH 31 (27-31) pg MCHC 34 (31-36) g/dl RDW 14 (10.5-15) % Plt Count 170 (150-450) 10^3/ul MPV 9 (7.4-10.4) um3 Neut % (Auto) 93.8 H (38-83) % Lymph % (Auto) 3.1 L (25-47) % Hunt % (Auto) 2.6 (1-9) % Eos % (Auto) 0.2 (0-6) % Baso % (Auto) 0.3 (0-2) % Absolute Neuts (auto) 11.9 H (1.5-7.7) 10^3/ul Absolute Lymphs (auto) 0.4 L (1.0-4.8) 10^3/ul Absolute Monos (auto) 0.3 (0-0.8) 10^3/ul Absolute Eos (auto) 0 (0-0.6) 10^3/ul Absolute Basos (auto) 0 (0-0.2) 10^3/ul Absolute Nucleated RBC 0.02 10^3/ul Nucleated RBC % 0.2 INR (Anticoag Therapy) 1.49 H (0.89-1.11) Sodium 137 (133-145) mmol/L Potassium 3.8 (3.5-5.0) mmol/L Chloride 100 L (101-111) mmol/L Carbon Dioxide 24 (22-32) mmol/L Anion Gap 13 H (2-11) mmol/L BUN 47 H (6-24) mg/dL Creatinine 1.69 H (0.67-1.17) mg/dL Est GFR ( Amer) 49.6 (>60) Est GFR (Non-Af Amer) 38.6 (>60) BUN/Creatinine Ratio 27.8 H (8-20) Glucose 236 H (70-100) mg/dL Lactic Acid (0.5-2.0) mmol/L Calcium 10.1 (8.6-10.3) mg/dL Total Bilirubin 4.80 H (0.2-1.0) mg/dL AST 426 H (13-39) U/L ALT 768 H (7-52) U/L Alkaline Phosphatase 128 H (34-104) U/L Troponin I 0.08 H* (<0.04) ng/mL C-Reactive Protein 223.67 H (< 5.00) mg/L Total Protein 7.3 (6.4-8.9) g/dL Albumin 3.8 (3.2-5.2) g/dL Globulin 3.5 (2-4) g/dL Albumin/Globulin Ratio 1.1 (1-3) Urine Color Urine Appearance Urine pH (5-9) Ur Specific [place] (1.010-1.030) Urine Protein (Negative) Urine Ketones (Negative) Urine Blood (Negative) Urine Nitrate (Negative) Urine Bilirubin (Negative) Urine Urobilinogen (Negative) Ur Leukocyte Esterase (Negative) Urine WBC (Auto) (Absent) Urine RBC (Auto) (Absent) Ur Squamous Epith Cells (Absent) Urine Bacteria (Absent) Urine Glucose (Negative) 08/06/17 08/06/17 Range/Units 08:15 08:15 WBC (3.5-10.8) 10^3/ul RBC (4.0-5.4) 10^6/ul Hgb (14.0-18.0) g/dl Hct (42-52) % MCV (80-94) fL MCH (27-31) pg MCHC (31-36) g/dl RDW (10.5-15) % Plt Count (150-450) 10^3/ul MPV (7.4-10.4) um3 Neut % (Auto) (38-83) % Lymph % (Auto) (25-47) % Hunt % (Auto) (1-9) % Eos % (Auto) (0-6) % Baso % (Auto) (0-2) % Absolute Neuts (auto) (1.5-7.7) 10^3/ul Absolute Lymphs (auto) (1.0-4.8) 10^3/ul Absolute Monos (auto) (0-0.8) 10^3/ul Absolute Eos (auto) (0-0.6) 10^3/ul Absolute Basos (auto) (0-0.2) 10^3/ul Absolute Nucleated RBC 10^3/ul Nucleated RBC % INR (Anticoag Therapy) (0.89-1.11) Sodium (133-145) mmol/L Potassium (3.5-5.0) mmol/L Chloride (101-111) mmol/L Carbon Dioxide (22-32) mmol/L Anion Gap (2-11) mmol/L BUN (6-24) mg/dL Creatinine (0.67-1.17) mg/dL Est GFR ( Amer) (>60) Est GFR (Non-Af Amer) (>60) BUN/Creatinine Ratio (8-20) Glucose (70-100) mg/dL Lactic Acid 4.5 H* (0.5-2.0) mmol/L Calcium (8.6-10.3) mg/dL Total Bilirubin (0.2-1.0) mg/dL AST (13-39) U/L ALT (7-52) U/L Alkaline Phosphatase (34-104) U/L Troponin I (<0.04) ng/mL C-Reactive Protein (< 5.00) mg/L Total Protein (6.4-8.9) g/dL Albumin (3.2-5.2) g/dL Globulin (2-4) g/dL Albumin/Globulin Ratio (1-3) Urine Color Klarissa Urine Appearance Cloudy Urine pH 6.0 (5-9) Ur Specific [place] 1.017 (1.010-1.030) Urine Protein 2+(100 mg/dl) H (Negative) Urine Ketones Negative (Negative) Urine Blood 1+ H (Negative) Urine Nitrate Negative (Negative) Urine Bilirubin Negative (Negative) Urine Urobilinogen Positive H (Negative) Ur Leukocyte Esterase Negative (Negative) Urine WBC (Auto) 1+(6-10/hpf) H (Absent) Urine RBC (Auto) Trace(0-2/hpf) (Absent) Ur Squamous Epith Cells Present H (Absent) Urine Bacteria Absent (Absent) Urine Glucose 2+(150 mg/dl) H (Negative) Microbiology and Other Data: Microbiology 08/06/17 14:25 Nasal Screen MRSA (PCR)(AD[facility]) - Final Nasal Mrsa Negative Influenza Types A,B Antigen ([facility]N) - Final Specimen received for Influenza A/B Molecular testing Assess/Plan/Problems-Billing Assessment: 86 yo M with hx of HTN, hypothyroidism, DM, COPD , liver abscess and thoracic spine osteo in 03/2016, as well as dementia presents with sepsis and lethargy - Patient Problems (1) Sepsis Current Visit: Yes Status: Acute Comment: Due to cholelithiasis/passed stone. No evidence of cholangitis. E. coli bacteremia. Res to quinolones, ampi, sens to cefazolin. Change to cefazolin. Pt is hemodynamically stable Continue clear liquid diet. So far LFT's are improving (2) Encephalopathy acute Current Visit: Yes Status: Acute Code(s): G93.40 - ENCEPHALOPATHY, UNSPECIFIED SNOMED Code(s): 4918290 Comment: Pt has underlying dementia for which he is on Aricept, but up to this admission he was able to live independently with seismograph helper. Increase in dementia expected with severe medical illness. PT/Ot ordered, may need STR. (3) NICO (acute kidney injury) Current Visit: No Status: Acute Code(s): N17.9 - ACUTE KIDNEY FAILURE, UNSPECIFIED SNOMED Code(s): 84155218 Comment: Due to sepsis. Resolved. (4) Diabetes Current Visit: No Status: Chronic Code(s): E11.9 - TYPE 2 DIABETES MELLITUS WITHOUT COMPLICATIONS SNOMED Code(s): 55276052 Comment: cont ISS only , oral meds held (5) Hypokalemia Current Visit: Yes Status: Acute Code(s): E87.6 - HYPOKALEMIA SNOMED Code( s): 73249952 Comment: IV KCL ordered 08/08. CMP 08/09. (6) Gallstones Current Visit: Yes Status: Acute Code(s): K80.20 - CALCULUS OF GALLBLADDER W /O CHOLECYSTITIS W/O OBSTRUCTION SNOMED Code(s): 672987525 Comment: Seen on CT. CMP 08/09. If LFT's normalize, no need for further wup. Status and Disposition: inpatient
[2017-08-08] MEDS: ceFAZolin 2 GM PREMIX (*) 2 GM/50 ML BAG IVPB SCH ×2 (09:41→16:16)
[2017-08-08] MEDS: Tamsulosin CAP* 0.4 MG PO SCH (09:45)
--- NOTE | 2017-08-08 10:53 | PN ---
Progress Note - Progress Note Date of Service: 08/08/17 Note: SURGERY F/U visit for biliary disease. Remains about the same as yesterday. Seems comfortable, but difficult to get reliable answers to questions Abdomen remains variably tender, though still probably most prominent in RUQ LFT's continue to trend downward Would continue current course No need for surgery at present.
[2017-08-08] MEDS: Pantoprazole IV* 40 MG IV SCH (13:53)
[2017-08-08] MEDS: D5W 1/2 NS KCl 20 Meq 1000 ML* 1,000 ML IV SCH (17:45)
[2017-08-09] MEDS: ceFAZolin 2 GM PREMIX (*) 2 GM/50 ML BAG IVPB SCH ×3 (00:57→16:53)
[2017-08-09] MEDS: Morphine INJ* 2 MG/ML 1 ML SYRINGE (TWO MG - NEW SYRINGE VERSION) IV PRN (02:30)
[2017-08-09] MEDS: D5W 1/2 NS KCl 20 Meq 1000 ML* 1,000 ML IV SCH ×2 (04:10→16:20)
[2017-08-09 05:43] LABS: Albumin 2.7 g/dL (3.2-5.2); BUN/Creatinine Ratio 20.7 (8-20); C Reactive Protein 233.98 mg/L (< 5.00); Calcium 8.6 mg/dL (8.6-10.3); EGFR African American 100.1 (>60); EGFR Non-African American 77.8 (>60); Globulin 3.5 g/dL (2-4); Potassium 2.8 mmol/L (3.5-5.0); Total Bilirubin 1.1 mg/dL (0.2-1.0); Total Protein 6.2 g/dL (6.4-8.9)
[2017-08-09] MEDS: Insulin LISPRO* 1 UNITS UNIT SUBCUT SCH ×3 (05:48→21:23)
[2017-08-09] MEDS ORDERED: Vancomycin Trough Check NOTE FOLLOW UP ONE (07:30)
[2017-08-09] MEDS: Levothyroxine TAB* 75 MCG TAB PO SCH (08:19)
[2017-08-09] MEDS: Nystatin CREAM* 15 GM TUBE TOPICAL SCH ×3 (08:21→21:24)
[2017-08-09] MEDS: Fondaparinux* 2.5 MG/0.5 ML SYRINGE SUBCUT SCH (09:15)
[2017-08-09] MEDS: Potassium Chlor TAB* 20 MEQ TAB.ER PO SCH ×3 (09:16→21:22)
[2017-08-09] MEDS: Tamsulosin CAP* 0.4 MG PO SCH (09:16)
--- NOTE | 2017-08-09 11:36 | PN ---
Subjective Date of Service: 08/09/17 Interval History: C/O pain in buttocks. Objective Active Medications: Dextrose (D50w Syringe 50 Ml*) 12.5 gm IV PUSH .FOR FS < 60 - SS PRN PRN Reason: FS < 60 Fondaparinux (Arixtra*) 2.5 mg SUBCUT DAILY [facility] Last Admin: 08/09/17 09:15 Dose: 2.5 mg Potassium Chloride/Dextrose (D5w 1/2 Ns Kcl 20 Meq 1000 Ml*) 1,000 mls @ 100 mls/hr IV PER RATE [facility] Last Admin: 08/09/17 04:10 Dose: 100 mls/hr Cefazolin Sodium/Dextrose (Kefzol 2 Gm Premix(*)) 2 gm in 50 mls @ 100 mls/hr IVPB Q8H [facility] Last Admin: 08/09/17 09:13 Dose: 100 mls/hr Insulin Human Lispro (Humalog*) 0 units SUBCUT Q6HR [facility] PRN Reason: Protocol Last Admin: 08/09/17 05:48 Dose: 6 units Levothyroxine Sodium (Synthroid Tab*) 75 mcg PO 0800 [facility] Last Admin: 08/09/17 08:19 Dose: 75 mcg Magnesium Hydroxide (Milk Of Magnesia Liq*) 60 ml PO DAILY PRN PRN Reason: CONSTIPATION Morphine Sulfate (Morphine Inj (Syringe)*) 2 mg IV Q4H PRN PRN Reason: PAIN - MILD Last Admin: 08/09/17 02:30 Dose: 2 mg Nystatin (Nystatin Cream*) 1 applic TOPICAL TID [facility] Last Admin: 08/09/17 08:21 Dose: 1 applic Omeprazole (Prilosec Cap*) 20 mg PO BID [facility] Pantoprazole Sodium (Protonix Iv*) 40 mg IV Q24H [facility] Stop: 08/09/17 16:00 Last Admin: 08/08/17 13:53 Dose: 40 mg Potassium Chloride (Klor Con Er Tab*) 20 meq PO TID [facility] Last Admin: 08/09/17 09:16 Dose: 20 meq Tamsulosin HCl (Flomax Cap*) 0.4 mg PO DAILY [facility] Last Admin: 08/09/17 09:16 Dose: 0.4 mg Vital Signs 08/08/17 08/08/17 08/08/17 15:24 15:36 19:18 Temperature 98.7 F Pulse Rate 82 Respiratory 18 16 16 Rate Blood Pressure 120/82 (mmHg) O2 Sat by Pulse 97 Oximetry 08/08/17 08/08/17 08/08/17 19:38 19:46 20:00 Temperature 99.0 F Pulse Rate 88 Respiratory 16 16 16 Rate Blood Pressure 111/68 (mmHg) O2 Sat by Pulse 99 Oximetry 08/08/17 08/08/17 08/08/17 20:38 23:09 23:10 Temperature 99.1 F Pulse Rate 83 Respiratory 16 18 Rate Blood Pressure 125/72 (mmHg) O2 Sat by Pulse 98 Oximetry 08/09/17 08/09/17 08/09/17 02:30 03:30 03:32 Temperature 98.1 F Pulse Rate 88 Respiratory 18 20 18 Rate Blood Pressure 116/61 (mmHg) O2 Sat by Pulse 96 Oximetry 08/09/17 08/09/17 07:17 08:00 Temperature 97.9 F Pulse Rate 100 Respiratory 20 20 Rate Blood Pressure 135/70 (mmHg) O2 Sat by Pulse 100 Oximetry Oxygen Devices in Use Now: None Appearance: Awake, partly up in recliner chair. Neutral affect. Looks comfortable. Eyes: No Scleral Icterus Respiratory: Symmetrical Chest Expansion and Respiratory Effort, Clear to Auscultation, Clear to Percussion Cardiovascular: NL Sounds; No Murmurs; No JVD, RRR, No Edema, - Extremities: No Edema, No Clubbing, Cyanosis, - Skin: No Rash or Ulcers, No Nodules or Sclerosis, - Neurological: NL Sensation - Speech dysarthric as before. No tremor. Result Diagrams: 08/08/17 05:30 08/09/17 05:19 Additional Lab and Data: Lab Results 08/06/17 08/06/17 08/06/17 Range/Units 08:15 08:15 08:15 WBC 12.7 H (3.5-10.8) 10^3/ul RBC 4.20 (4.0-5.4) 10^6/ul Hgb 13.2 L (14.0-18.0) g/dl Hct 39 L (42-52) % MCV 92 (80-94) fL MCH 31 (27-31) pg MCHC 34 (31-36) g/dl RDW 14 (10.5-15) % Plt Count 170 (150-450) 10^3/ul MPV 9 (7.4-10.4) um3 Neut % (Auto) 93.8 H (38-83) % Lymph % (Auto) 3.1 L (25-47) % Ida % (Auto) 2.6 (1-9) % Eos % (Auto) 0.2 (0-6) % Baso % (Auto) 0.3 (0-2) % Absolute Neuts (auto) 11.9 H (1.5-7.7) 10^3/ul Absolute Lymphs (auto) 0.4 L (1.0-4.8) 10^3/ul Absolute Monos (auto) 0.3 (0-0.8) 10^3/ul Absolute Eos (auto) 0 (0-0.6) 10^3/ul Absolute Basos (auto) 0 (0-0.2) 10^3/ul Absolute Nucleated RBC 0.02 10^3/ul Nucleated RBC % 0.2 INR (Anticoag Therapy) 1.49 H (0.89-1.11) Sodium 137 (133-145) mmol/L Potassium 3.8 (3.5-5.0) mmol/L Chloride 100 L (101-111) mmol/L Carbon Dioxide 24 (22-32) mmol/L Anion Gap 13 H (2-11) mmol/L BUN 47 H (6-24) mg/dL Creatinine 1.69 H (0.67-1.17) mg/dL Est GFR ( Amer) 49.6 (>60) Est GFR (Non-Af Amer) 38.6 (>60) BUN/Creatinine Ratio 27.8 H (8-20) Glucose 236 H (70-100) mg/dL Lactic Acid (0.5-2.0) mmol/L Calcium 10.1 (8.6-10.3) mg/dL Total Bilirubin 4.80 H (0.2-1.0) mg/dL AST 426 H (13-39) U/L ALT 768 H (7-52) U/L Alkaline Phosphatase 128 H (34-104) U/L Troponin I 0.08 H* (<0.04) ng/mL C-Reactive Protein 223.67 H (< 5.00) mg/L Total Protein 7.3 (6.4-8.9) g/dL Albumin 3.8 (3.2-5.2) g/dL Globulin 3.5 (2-4) g/dL Albumin/Globulin Ratio 1.1 (1-3) Urine Color Urine Appearance Urine pH (5-9) Ur Specific [place] (1.010-1.030) Urine Protein (Negative) Urine Ketones (Negative) Urine Blood (Negative) Urine Nitrate (Negative) Urine Bilirubin (Negative) Urine Urobilinogen (Negative) Ur Leukocyte Esterase (Negative) Urine WBC (Auto) (Absent) Urine RBC (Auto) (Absent) Ur Squamous Epith Cells (Absent) Urine Bacteria (Absent) Urine Glucose (Negative) 08/06/17 08/06/17 Range/Units 08:15 08:15 WBC (3.5-10.8) 10^3/ul RBC (4.0-5.4) 10^6/ul Hgb (14.0-18.0) g/dl Hct (42-52) % MCV (80-94) fL MCH (27-31) pg MCHC (31-36) g/dl RDW (10.5-15) % Plt Count (150-450) 10^3/ul MPV (7.4-10.4) um3 Neut % (Auto) (38-83) % Lymph % (Auto) (25-47) % Ida % (Auto) (1-9) % Eos % (Auto) (0-6) % Baso % (Auto) (0-2) % Absolute Neuts (auto) (1.5-7.7) 10^3/ul Absolute Lymphs (auto) (1.0-4.8) 10^3/ul Absolute Monos (auto) (0-0.8) 10^3/ul Absolute Eos (auto) (0-0.6) 10^3/ul Absolute Basos (auto) (0-0.2) 10^3/ul Absolute Nucleated RBC 10^3/ul Nucleated RBC % INR (Anticoag Therapy) (0.89-1.11) Sodium (133-145) mmol/L Potassium (3.5-5.0) mmol/L Chloride (101-111) mmol/L Carbon Dioxide (22-32) mmol/L Anion Gap (2-11) mmol/L BUN (6-24) mg/dL Creatinine (0.67-1.17) mg/dL Est GFR ( Amer) (>60) Est GFR (Non-Af Amer) (>60) BUN/Creatinine Ratio (8-20) Glucose (70-100) mg/dL Lactic Acid 4.5 H* (0.5-2.0) mmol/L Calcium (8.6-10.3) mg/dL Total Bilirubin (0.2-1.0) mg/dL AST (13-39) U/L ALT (7-52) U/L Alkaline Phosphatase (34-104) U/L Troponin I (<0.04) ng/mL C-Reactive Protein (< 5.00) mg/L Total Protein (6.4-8.9) g/dL Albumin (3.2-5.2) g/dL Globulin (2-4) g/dL Albumin/Globulin Ratio (1-3) Urine Color [place] Urine Appearance Cloudy Urine pH 6.0 (5-9) Ur Specific [place] 1.017 (1.010-1.030) Urine Protein 2+(100 mg/dl) H (Negative) Urine Ketones Negative (Negative) Urine Blood 1+ H (Negative) Urine Nitrate Negative (Negative) Urine Bilirubin Negative (Negative) Urine Urobilinogen Positive H (Negative) Ur Leukocyte Esterase Negative (Negative) Urine WBC (Auto) 1+(6-10/hpf) H (Absent) Urine RBC (Auto) Trace(0-2/hpf) (Absent) Ur Squamous Epith Cells Present H (Absent) Urine Bacteria Absent (Absent) Urine Glucose 2+(150 mg/dl) H (Negative) Microbiology and Other Data: Microbiology 08/06/17 14:25 Nasal Screen MRSA (PCR)([facility]) - Final Nasal Mrsa Negative Influenza Types A,B Antigen ([facility]) - Final Specimen received for Influenza A/B Molecular testing Assess/Plan/Problems-Billing Assessment: 86 yo M with hx of HTN, hypothyroidism, DM, COPD , liver abscess and thoracic spine osteo in 03/2016, as well as dementia presents with sepsis and lethargy - Patient Problems (1) Sepsis Current Visit: Yes Status: Resolved Comment: Due to cholelithiasis/passed stone. No evidence of cholangitis. E. coli bacteremia still present 08/08. Res to quinolones, ampi, sens to cefazolin. Continue cefazolin. Change to low fat diet 08/09. Repeat CBC, CMP, CRP 08/10. So far LFT's are improving (2) Encephalopathy acute Current Visit: Yes Status: Acute Code(s): G93.40 - ENCEPHALOPATHY, UNSPECIFIED SNOMED Code(s): 7106072 Comment: Pt has underlying dementia for which he is on Aricept, but up to this admission he was able to live independently with filter tank tender helper head. Increase in dementia expected with severe medical illness. PT/Ot ordered, may need STR. (3) NICO (acute kidney injury) Current Visit: No Status: Acute Code(s): N17.9 - ACUTE KIDNEY FAILURE, UNSPECIFIED SNOMED Code(s): 32413586 Comment: Due to sepsis. Resolved. (4) Diabetes Current Visit: No Status: Chronic Code(s): E11.9 - TYPE 2 DIABETES MELLITUS WITHOUT COMPLICATIONS SNOMED Code(s): 49551995 Comment: cont ISS only , oral meds held (5) Hypokalemia Current Visit: Yes Status: Acute Code(s): E87.6 - HYPOKALEMIA SNOMED Code( s): 78949035 Comment: IV KCL ordered 08/08. Repeat CBC, CMP, CRP 08/10. (6) Gallstones Current Visit: Yes Status: Acute Code(s): K80.20 - CALCULUS OF GALLBLADDER W /O CHOLECYSTITIS W/O OBSTRUCTION SNOMED Code(s): 574199905 Comment: Seen on CT. Repeat CBC, CMP, CRP 08/10. Repeat blood C&S 08/10, consider further sepsis wup if CRP and WBC not better. If LFT's normalize, no need for further GI wup. (7) Hypothyroidism Current Visit: No Status: Chronic Code(s): E03.9 - HYPOTHYROIDISM, UNSPECIFIED SNOMED Code(s): 54853416 Comment: TSH 2.4 on 08/06/17, continue synthroid (8) Decubitus skin ulcer Current Visit: Yes Status: Acute Code(s): L89.90 - PRESSURE ULCER OF UNSPECIFIED SITE, UNSPECIFIED STAGE SNOMED Code(s): 426948817 Comment: Two shallow moist ulcer on buttocks. Barrier cream applied. Continue Swenson catheter to protect his skin. Status and Disposition: inpatient
[2017-08-09] MEDS: Pantoprazole IV* 40 MG IV SCH (14:43)
--- NOTE | 2017-08-09 14:49 | PN ---
Progress Note - Progress Note Date of Service: 08/09/17 SOAP: Subjective: Patient seen and examined at bedside. Respond to questions; however, drowsy and would like to go to sleep. Denies any complaints. Objective: Drowsy and tired, but respond to command VSS, afebrile Abdomen soft, mildly distended. Mild RUQ tenderness with deep palpation. No guarding, rigidity or rebound. Labs noted, total bili and LFTs trending down I?O noted Assessment: An 87 y/o male with choledocholithiasis, appears to be resolving. Plan: Check labs in AM No surgical indications at this time Will follow during this admission.
[2017-08-09] MEDS: Magnesium Hydroxide LIQ* 30 ML UDC PO PRN (16:59)
[2017-08-09] MEDS: NS 0.45% KCl 20 Meq 1000 ML* 1,000 ML IV SCH (17:44)
[2017-08-09] MEDS ORDERED: Insulin GLARGINE(*) 1 UNITS UNIT SUBCUT SCH (18:00)
[2017-08-09] MEDS: Omeprazole CAP* 20 MG PO SCH (21:20)
[2017-08-10] MEDS: ceFAZolin 2 GM PREMIX (*) 2 GM/50 ML BAG IVPB SCH ×3 (00:56→18:09)
[2017-08-10] MEDS: NS 0.45% KCl 20 Meq 1000 ML* 1,000 ML IV SCH ×2 (03:44→14:49)
[2017-08-10 05:40] LABS: Hematocrit 34 % (42-52); Hemoglobin 11.7 g/dl (14.0-18.0); Mean Corpuscular HGB Conc 35 g/dl (31-36); Mean Corpuscular Hemoglobin 31 pg (27-31); Mean Corpuscular Volume 90 fL (80-94); Mean Platelet Volume 9 um3 (7.4-10.4); Red Blood Count 3.76 10^6/ul (4.0-5.4); Red Cell Distribution Width 14 % (10.5-15); White Blood Count 10.3 10^3/ul (3.5-10.8)
[2017-08-10 05:42] LABS: Add Diff/Slide Review? Slide Review Added; Comments Flag Yes
[2017-08-10 05:53] LABS: Albumin 2.6 g/dL (3.2-5.2); BUN/Creatinine Ratio 22.4 (8-20); C Reactive Protein 209.76 mg/L (< 5.00); Calcium 8.6 mg/dL (8.6-10.3); EGFR African American 124.8 (>60); Globulin 3.6 g/dL (2-4); Total Protein 6.2 g/dL (6.4-8.9)
[2017-08-10] MEDS: Levothyroxine TAB* 75 MCG TAB PO SCH (08:22)
[2017-08-10] MEDS: Tamsulosin CAP* 0.4 MG PO SCH (09:29)
[2017-08-10] MEDS: Insulin LISPRO* 1 UNITS UNIT SUBCUT SCH ×4 (09:30→21:27)
[2017-08-10] MEDS: Omeprazole CAP* 20 MG PO SCH ×2 (09:30→21:15)
[2017-08-10] MEDS: Potassium Chlor TAB* 20 MEQ TAB.ER PO SCH ×4 (09:30→21:15)
[2017-08-10] MEDS: Fondaparinux* 2.5 MG/0.5 ML SYRINGE SUBCUT SCH (09:31)
[2017-08-10] MEDS: Nystatin CREAM* 15 GM TUBE TOPICAL SCH ×3 (10:52→21:16)
--- NOTE | 2017-08-10 13:42 | PN ---
Progress Note - Progress Note Date of Service: 08/10/17 SOAP: Subjective: Patient see and examined at bedside. Denies any complaints. Objective: Sitting up on his chair, can't help falling a sleep, but alert upon command, answers questions. VSS, afebrile Abdominal exam unchanged from yesterday. No guarding or rigidity. Labs noted, total bili down to 1.0 I/O noted Assessment: Resolving choledocholithiasis, clinically stable, likely passed stone from CBD Plan: D/C plans per medicine. No surgical indications at this time. Continue low fat diet. Sign off patient, please call if any concerns.
[2017-08-10] MEDS ORDERED: NS 0.45% KCl 20 Meq 1000 ML* 1,000 ML IV SCH (14:43)
[2017-08-10] MEDS ORDERED: Insulin GLARGINE(*) 1 UNITS UNIT SUBCUT SCH (14:48)
--- NOTE | 2017-08-10 14:57 | PN ---
Subjective Date of Service: 08/10/17 Interval History: He offers no c/o. Not clear if he could make his needs known. Objective Active Medications: Dextrose (D50w Syringe 50 Ml*) 12.5 gm IV PUSH .FOR FS < 60 - SS PRN PRN Reason: FS < 60 Fondaparinux (Arixtra*) 2.5 mg SUBCUT DAILY [facility] Last Admin: 08/10/17 09:31 Dose: 2.5 mg Cefazolin Sodium/Dextrose (Kefzol 2 Gm Premix(*)) 2 gm in 50 mls @ 100 mls/hr IVPB Q8H [facility] Last Admin: 08/10/17 09:39 Dose: 100 mls/hr Potassium Chloride/Sodium Chloride (Ns 0.45% Kcl 20 Meq 1000 Ml*) 1,000 mls @ 75 mls/hr IV PER RATE [facility] Insulin Glargine (Lantus(*)) 12 units SUBCUT Q24H [facility] Insulin Human Lispro (Humalog*) 0 units SUBCUT ACHS [facility] PRN Reason: Protocol Last Admin: 08/10/17 14:41 Dose: 6 units Levothyroxine Sodium (Synthroid Tab*) 75 mcg PO 0800 [facility] Last Admin: 08/10/17 08:22 Dose: 75 mcg Magnesium Hydroxide (Milk Of Magnesia Liq*) 60 ml PO DAILY PRN PRN Reason: CONSTIPATION Last Admin: 08/09/17 16:59 Dose: 60 ml Morphine Sulfate (Morphine Inj (Syringe)*) 2 mg IV Q4H PRN PRN Reason: PAIN - MILD Last Admin: 08/09/17 02:30 Dose: 2 mg Nystatin (Nystatin Cream*) 1 applic TOPICAL TID [facility] Last Admin: 08/10/17 14:42 Dose: 1 applic Omeprazole (Prilosec Cap*) 20 mg PO BID [facility] Last Admin: 08/10/17 09:30 Dose: 20 mg Potassium Chloride (Klor Con Er Tab*) 20 meq PO QID [facility] Tamsulosin HCl (Flomax Cap*) 0.4 mg PO DAILY [facility] Last Admin: 08/10/17 09:29 Dose: 0.4 mg Vital Signs 08/09/17 08/09/17 08/09/17 15:16 19:30 19:37 Temperature 98.1 F 98.5 F Pulse Rate 92 85 Respiratory 16 16 16 Rate Blood Pressure 120/62 118/69 (mmHg) O2 Sat by Pulse 94 98 Oximetry 08/09/17 08/10/17 08/10/17 23:23 03:34 07:27 Temperature 98.2 F 98.6 F 99.6 F Pulse Rate 86 94 73 Respiratory 18 16 18 Rate Blood Pressure 119/70 113/66 107/77 (mmHg) O2 Sat by Pulse 97 95 96 Oximetry 08/10/17 08/10/17 08/10/17 08:00 11:26 11:28 Temperature 98.9 F Pulse Rate 47 82 Respiratory 20 20 Rate Blood Pressure 95/64 102/58 (mmHg) O2 Sat by Pulse 97 97 Oximetry Oxygen Devices in Use Now: None Appearance: Supine in bed, eyes closed, appears to be sleeping, responds to voice though. Looks comfortable. Abdominal: NL Sounds; No Tenderness; No Distention, No Hepatosplenomegaly, - Extremities: No Edema, No Clubbing, Cyanosis, - Skin: No Rash or Ulcers, No Nodules or Sclerosis, - Neurological: NL Sensation - disoriented. No tremor. Result Diagrams: 08/10/17 05:13 08/10/17 05:13 Additional Lab and Data: Lab Results 08/06/17 08/06/17 08/06/17 Range/Units 08:15 08:15 08:15 WBC 12.7 H (3.5-10.8) 10^3/ul RBC 4.20 (4.0-5.4) 10^6/ul Hgb 13.2 L (14.0-18.0) g/dl Hct 39 L (42-52) % MCV 92 (80-94) fL MCH 31 (27-31) pg MCHC 34 (31-36) g/dl RDW 14 (10.5-15) % Plt Count 170 (150-450) 10^3/ul MPV 9 (7.4-10.4) um3 Neut % (Auto) 93.8 H (38-83) % Lymph % (Auto) 3.1 L (25-47) % [place] % (Auto) 2.6 (1-9) % Eos % (Auto) 0.2 (0-6) % Baso % (Auto) 0.3 (0-2) % Absolute Neuts (auto) 11.9 H (1.5-7.7) 10^3/ul Absolute Lymphs (auto) 0.4 L (1.0-4.8) 10^3/ul Absolute Monos (auto) 0.3 (0-0.8) 10^3/ul Absolute Eos (auto) 0 (0-0.6) 10^3/ul Absolute Basos (auto) 0 (0-0.2) 10^3/ul Absolute Nucleated RBC 0.02 10^3/ul Nucleated RBC % 0.2 INR (Anticoag Therapy) 1.49 H (0.89-1.11) Sodium 137 (133-145) mmol/L Potassium 3.8 (3.5-5.0) mmol/L Chloride 100 L (101-111) mmol/L Carbon Dioxide 24 (22-32) mmol/L Anion Gap 13 H (2-11) mmol/L BUN 47 H (6-24) mg/dL Creatinine 1.69 H (0.67-1.17) mg/dL Est GFR ( Amer) 49.6 (>60) Est GFR (Non-Af Amer) 38.6 (>60) BUN/Creatinine Ratio 27.8 H (8-20) Glucose 236 H (70-100) mg/dL Lactic Acid (0.5-2.0) mmol/L Calcium 10.1 (8.6-10.3) mg/dL Total Bilirubin 4.80 H (0.2-1.0) mg/dL AST 426 H (13-39) U/L ALT 768 H (7-52) U/L Alkaline Phosphatase 128 H (34-104) U/L Troponin I 0.08 H* (<0.04) ng/mL C-Reactive Protein 223.67 H (< 5.00) mg/L Total Protein 7.3 (6.4-8.9) g/dL Albumin 3.8 (3.2-5.2) g/dL Globulin 3.5 (2-4) g/dL Albumin/Globulin Ratio 1.1 (1-3) Urine Color Urine Appearance Urine pH (5-9) Ur Specific [place] (1.010-1.030) Urine Protein (Negative) Urine Ketones (Negative) Urine Blood (Negative) Urine Nitrate (Negative) Urine Bilirubin (Negative) Urine Urobilinogen (Negative) Ur Leukocyte Esterase (Negative) Urine WBC (Auto) (Absent) Urine RBC (Auto) (Absent) Ur Squamous Epith Cells (Absent) Urine Bacteria (Absent) Urine Glucose (Negative) 08/06/17 08/06/17 Range/Units 08:15 08:15 WBC (3.5-10.8) 10^3/ul RBC (4.0-5.4) 10^6/ul Hgb (14.0-18.0) g/dl Hct (42-52) % MCV (80-94) fL MCH (27-31) pg MCHC (31-36) g/dl RDW (10.5-15) % Plt Count (150-450) 10^3/ul MPV (7.4-10.4) um3 Neut % (Auto) (38-83) % Lymph % (Auto) (25-47) % [place] % (Auto) (1-9) % Eos % (Auto) (0-6) % Baso % (Auto) (0-2) % Absolute Neuts (auto) (1.5-7.7) 10^3/ul Absolute Lymphs (auto) (1.0-4.8) 10^3/ul Absolute Monos (auto) (0-0.8) 10^3/ul Absolute Eos (auto) (0-0.6) 10^3/ul Absolute Basos (auto) (0-0.2) 10^3/ul Absolute Nucleated RBC 10^3/ul Nucleated RBC % INR (Anticoag Therapy) (0.89-1.11) Sodium (133-145) mmol/L Potassium (3.5-5.0) mmol/L Chloride (101-111) mmol/L Carbon Dioxide (22-32) mmol/L Anion Gap (2-11) mmol/L BUN (6-24) mg/dL Creatinine (0.67-1.17) mg/dL Est GFR ( Amer) (>60) Est GFR (Non-Af Amer) (>60) BUN/Creatinine Ratio (8-20) Glucose (70-100) mg/dL Lactic Acid 4.5 H* (0.5-2.0) mmol/L Calcium (8.6-10.3) mg/dL Total Bilirubin (0.2-1.0) mg/dL AST (13-39) U/L ALT (7-52) U/L Alkaline Phosphatase (34-104) U/L Troponin I (<0.04) ng/mL C-Reactive Protein (< 5.00) mg/L Total Protein (6.4-8.9) g/dL Albumin (3.2-5.2) g/dL Globulin (2-4) g/dL Albumin/Globulin Ratio (1-3) Urine Color [place] Urine Appearance Cloudy Urine pH 6.0 (5-9) Ur Specific [place] 1.017 (1.010-1.030) Urine Protein 2+(100 mg/dl) H (Negative) Urine Ketones Negative (Negative) Urine Blood 1+ H (Negative) Urine Nitrate Negative (Negative) Urine Bilirubin Negative (Negative) Urine Urobilinogen Positive H (Negative) Ur Leukocyte Esterase Negative (Negative) Urine WBC (Auto) 1+(6-10/hpf) H (Absent) Urine RBC (Auto) Trace(0-2/hpf) (Absent) Ur Squamous Epith Cells Present H (Absent) Urine Bacteria Absent (Absent) Urine Glucose 2+(150 mg/dl) H (Negative) Microbiology and Other Data: Microbiology 08/06/17 14:25 Nasal Screen MRSA (PCR)([facility]) - Final Nasal Mrsa Negative Influenza Types A,B Antigen ([facility]) - Final Specimen received for Influenza A/B Molecular testing Assess/Plan/Problems-Billing Assessment: 86 yo M with hx of HTN, hypothyroidism, DM, COPD , liver abscess and thoracic spine osteo in 03/2016, as well as dementia presents with sepsis and lethargy - Patient Problems (1) Sepsis Current Visit: Yes Status: Resolved Comment: Due to cholelithiasis/passed stone. No evidence of cholangitis. E. coli bacteremia still present 08/08. Res to quinolones, ampi, sens to cefazolin. Continue cefazolin. Changed to low fat diet 08/09. LFT's virtually wnl 08/10. Calorie counts requested. So far LFT's are improving (2) Encephalopathy acute Current Visit: Yes Status: Acute Code(s): G93.40 - ENCEPHALOPATHY, UNSPECIFIED SNOMED Code(s): 5874110 Comment: Pt has underlying dementia for which he is on Aricept, but up to this admission he was able to live independently with filtering machine tender helper. Increase in dementia expected with severe medical illness. PT/Ot eval suggests that he may need STR. (3) NICO (acute kidney injury) Current Visit: No Status: Acute Code(s): N17.9 - ACUTE KIDNEY FAILURE, UNSPECIFIED SNOMED Code(s): 70051494 Comment: Due to sepsis. Resolved. (4) Diabetes Current Visit: No Status: Chronic Code(s): E11.9 - TYPE 2 DIABETES MELLITUS WITHOUT COMPLICATIONS SNOMED Code(s): 14999028 Comment: Lantus started 08/09, increased 08/10. (5) Hypokalemia Current Visit: Yes Status: Acute Code(s): E87.6 - HYPOKALEMIA SNOMED Code( s): 24851089 Comment: IV KCL started 08/08. KCL increased to 20 meq qid, random urine K+ requested. Reduce IV to 75 ml, try to wean and see if he can hydrated himself. (6) Gallstones Current Visit: Yes Status: Acute Code(s): K80.20 - CALCULUS OF GALLBLADDER W /O CHOLECYSTITIS W/O OBSTRUCTION SNOMED Code(s): 773494339 Comment: Seen on CT. Repeat CBC, CMP, CRP 08/10. Repeat blood C&S 08/10, consider further sepsis wup if CRP and WBC not better. If LFT's normalize, no need for further GI wup. (7) Hypothyroidism Current Visit: No Status: Chronic Code(s): E03.9 - HYPOTHYROIDISM, UNSPECIFIED SNOMED Code(s): 52856657 Comment: TSH 2.4 on 08/06/17, continue synthroid (8) Decubitus skin ulcer Current Visit: Yes Status: Acute Code(s): L89.90 - PRESSURE ULCER OF UNSPECIFIED SITE, UNSPECIFIED STAGE SNOMED Code(s): 490223735 Comment: Two shallow moist ulcer on buttocks. Barrier cream applied. Continue Swenson catheter to protect his skin. Status and Disposition: inpatient
[2017-08-10] MEDS: Magnesium Hydroxide LIQ* 30 ML UDC PO PRN (21:25)
[2017-08-11] MEDS: ceFAZolin 2 GM PREMIX (*) 2 GM/50 ML BAG IVPB SCH ×3 (01:00→17:33)
[2017-08-11] MEDS: Levothyroxine TAB* 75 MCG TAB PO SCH (08:29)
[2017-08-11] MEDS: Potassium Chlor TAB* 20 MEQ TAB.ER PO SCH ×4 (08:52→20:50)
[2017-08-11] MEDS: Omeprazole CAP* 20 MG PO SCH ×2 (08:52→20:50)
[2017-08-11] MEDS: Fondaparinux* 2.5 MG/0.5 ML SYRINGE SUBCUT SCH (08:52)
[2017-08-11] MEDS: Tamsulosin CAP* 0.4 MG PO SCH (08:52)
[2017-08-11] MEDS: Nystatin CREAM* 15 GM TUBE TOPICAL SCH ×3 (08:52→20:51)
[2017-08-11] MEDS: Insulin LISPRO* 1 UNITS UNIT SUBCUT SCH ×4 (08:58→20:50)
--- NOTE | 2017-08-11 13:31 | PN ---
Subjective Date of Service: 08/11/17 Interval History: No new c/o. Objective Active Medications: Dextrose (D50w Syringe 50 Ml*) 12.5 gm IV PUSH .FOR FS < 60 - SS PRN PRN Reason: FS < 60 Fondaparinux (Arixtra*) 2.5 mg SUBCUT DAILY [facility] Last Admin: 08/11/17 08:52 Dose: 2.5 mg Cefazolin Sodium/Dextrose (Kefzol 2 Gm Premix(*)) 2 gm in 50 mls @ 100 mls/hr IVPB Q8H [facility] Last Admin: 08/11/17 08:29 Dose: 100 mls/hr Potassium Chloride/Sodium Chloride (Ns 0.45% Kcl 20 Meq 1000 Ml*) 1,000 mls @ 75 mls/hr IV PER RATE [facility] Last Admin: 08/11/17 04:07 Dose: 75 mls/hr Insulin Glargine (Lantus(*)) 12 units SUBCUT Q24H [facility] Last Admin: 08/10/17 18:00 Dose: 12 units Insulin Human Lispro (Humalog*) 0 units SUBCUT ACHS [facility] PRN Reason: Protocol Last Admin: 08/11/17 13:11 Dose: 8 units Levothyroxine Sodium (Synthroid Tab*) 75 mcg PO 0800 [facility] Last Admin: 08/11/17 08:29 Dose: 75 mcg Magnesium Hydroxide (Milk Of Magnesia Liq*) 60 ml PO DAILY PRN PRN Reason: CONSTIPATION Last Admin: 08/10/17 21:25 Dose: 60 ml Morphine Sulfate (Morphine Inj (Syringe)*) 2 mg IV Q4H PRN PRN Reason: PAIN - MILD Last Admin: 08/09/17 02:30 Dose: 2 mg Nystatin (Nystatin Cream*) 1 applic TOPICAL TID [facility] Last Admin: 08/11/17 13:11 Dose: 1 applic Omeprazole (Prilosec Cap*) 20 mg PO BID [facility] Last Admin: 08/11/17 08:52 Dose: 20 mg Potassium Chloride (Klor Con Er Tab*) 20 meq PO QID [facility] Last Admin: 08/11/17 13:11 Dose: 20 meq Tamsulosin HCl (Flomax Cap*) 0.4 mg PO DAILY [facility] Last Admin: 08/11/17 08:52 Dose: 0.4 mg Vital Signs 08/10/17 08/10/17 08/10/17 15:21 19:21 20:00 Temperature 98.7 F Pulse Rate 94 96 Respiratory 16 16 16 Rate Blood Pressure 131/69 120/69 (mmHg) O2 Sat by Pulse 97 97 Oximetry 08/10/17 08/11/17 08/11/17 23:56 03:26 07:17 Temperature 99.0 F 98.4 F 98.4 F Pulse Rate 92 87 94 Respiratory 20 14 16 Rate Blood Pressure 134/73 118/68 132/76 (mmHg) O2 Sat by Pulse 95 95 99 Oximetry 08/11/17 08/11/17 08:00 11:48 Temperature 99.5 F Pulse Rate 92 Respiratory 16 18 Rate Blood Pressure 100/58 (mmHg) O2 Sat by Pulse 96 Oximetry Oxygen Devices in Use Now: None Appearance: Lethargic, partly up in bed. Looks comfortable. Eyes: No Scleral Icterus Respiratory: Symmetrical Chest Expansion and Respiratory Effort, Clear to Auscultation, Clear to Percussion Cardiovascular: NL Sounds; No Murmurs; No JVD, RRR, No Edema, - Abdominal: - - Chronically distended, no change per his home health aide. Soft , not tender. Nl BS. Extremities: No Edema, No Clubbing, Cyanosis, - Skin: No Rash or Ulcers, No Nodules or Sclerosis, - Neurological: NL Sensation - Lethargic. Says a few words then goes back to sleep. No tremor. Result Diagrams: 08/10/17 05:13 08/10/17 05:13 Additional Lab and Data: Lab Results 08/06/17 08/06/17 08/06/17 Range/Units 08:15 08:15 08:15 WBC 12.7 H (3.5-10.8) 10^3/ul RBC 4.20 (4.0-5.4) 10^6/ul Hgb 13.2 L (14.0-18.0) g/dl Hct 39 L (42-52) % MCV 92 (80-94) fL MCH 31 (27-31) pg MCHC 34 (31-36) g/dl RDW 14 (10.5-15) % Plt Count 170 (150-450) 10^3/ul MPV 9 (7.4-10.4) um3 Neut % (Auto) 93.8 H (38-83) % Lymph % (Auto) 3.1 L (25-47) % [place] % (Auto) 2.6 (1-9) % Eos % (Auto) 0.2 (0-6) % Baso % (Auto) 0.3 (0-2) % Absolute Neuts (auto) 11.9 H (1.5-7.7) 10^3/ul Absolute Lymphs (auto) 0.4 L (1.0-4.8) 10^3/ul Absolute Monos (auto) 0.3 (0-0.8) 10^3/ul Absolute Eos (auto) 0 (0-0.6) 10^3/ul Absolute Basos (auto) 0 (0-0.2) 10^3/ul Absolute Nucleated RBC 0.02 10^3/ul Nucleated RBC % 0.2 INR (Anticoag Therapy) 1.49 H (0.89-1.11) Sodium 137 (133-145) mmol/L Potassium 3.8 (3.5-5.0) mmol/L Chloride 100 L (101-111) mmol/L Carbon Dioxide 24 (22-32) mmol/L Anion Gap 13 H (2-11) mmol/L BUN 47 H (6-24) mg/dL Creatinine 1.69 H (0.67-1.17) mg/dL Est GFR ( Amer) 49.6 (>60) Est GFR (Non-Af Amer) 38.6 (>60) BUN/Creatinine Ratio 27.8 H (8-20) Glucose 236 H (70-100) mg/dL Lactic Acid (0.5-2.0) mmol/L Calcium 10.1 (8.6-10.3) mg/dL Total Bilirubin 4.80 H (0.2-1.0) mg/dL AST 426 H (13-39) U/L ALT 768 H (7-52) U/L Alkaline Phosphatase 128 H (34-104) U/L Troponin I 0.08 H* (<0.04) ng/mL C-Reactive Protein 223.67 H (< 5.00) mg/L Total Protein 7.3 (6.4-8.9) g/dL Albumin 3.8 (3.2-5.2) g/dL Globulin 3.5 (2-4) g/dL Albumin/Globulin Ratio 1.1 (1-3) Urine Color Urine Appearance Urine pH (5-9) Ur Specific [place] (1.010-1.030) Urine Protein (Negative) Urine Ketones (Negative) Urine Blood (Negative) Urine Nitrate (Negative) Urine Bilirubin (Negative) Urine Urobilinogen (Negative) Ur Leukocyte Esterase (Negative) Urine WBC (Auto) (Absent) Urine RBC (Auto) (Absent) Ur Squamous Epith Cells (Absent) Urine Bacteria (Absent) Urine Glucose (Negative) 08/06/17 08/06/17 Range/Units 08:15 08:15 WBC (3.5-10.8) 10^3/ul RBC (4.0-5.4) 10^6/ul Hgb (14.0-18.0) g/dl Hct (42-52) % MCV (80-94) fL MCH (27-31) pg MCHC (31-36) g/dl RDW (10.5-15) % Plt Count (150-450) 10^3/ul MPV (7.4-10.4) um3 Neut % (Auto) (38-83) % Lymph % (Auto) (25-47) % [place] % (Auto) (1-9) % Eos % (Auto) (0-6) % Baso % (Auto) (0-2) % Absolute Neuts (auto) (1.5-7.7) 10^3/ul Absolute Lymphs (auto) (1.0-4.8) 10^3/ul Absolute Monos (auto) (0-0.8) 10^3/ul Absolute Eos (auto) (0-0.6) 10^3/ul Absolute Basos (auto) (0-0.2) 10^3/ul Absolute Nucleated RBC 10^3/ul Nucleated RBC % INR (Anticoag Therapy) (0.89-1.11) Sodium (133-145) mmol/L Potassium (3.5-5.0) mmol/L Chloride (101-111) mmol/L Carbon Dioxide (22-32) mmol/L Anion Gap (2-11) mmol/L BUN (6-24) mg/dL Creatinine (0.67-1.17) mg/dL Est GFR ( Amer) (>60) Est GFR (Non-Af Amer) (>60) BUN/Creatinine Ratio (8-20) Glucose (70-100) mg/dL Lactic Acid 4.5 H* (0.5-2.0) mmol/L Calcium (8.6-10.3) mg/dL Total Bilirubin (0.2-1.0) mg/dL AST (13-39) U/L ALT (7-52) U/L Alkaline Phosphatase (34-104) U/L Troponin I (<0.04) ng/mL C-Reactive Protein (< 5.00) mg/L Total Protein (6.4-8.9) g/dL Albumin (3.2-5.2) g/dL Globulin (2-4) g/dL Albumin/Globulin Ratio (1-3) Urine Color [place] Urine Appearance Cloudy Urine pH 6.0 (5-9) Ur Specific [place] 1.017 (1.010-1.030) Urine Protein 2+(100 mg/dl) H (Negative) Urine Ketones Negative (Negative) Urine Blood 1+ H (Negative) Urine Nitrate Negative (Negative) Urine Bilirubin Negative (Negative) Urine Urobilinogen Positive H (Negative) Ur Leukocyte Esterase Negative (Negative) Urine WBC (Auto) 1+(6-10/hpf) H (Absent) Urine RBC (Auto) Trace(0-2/hpf) (Absent) Ur Squamous Epith Cells Present H (Absent) Urine Bacteria Absent (Absent) Urine Glucose 2+(150 mg/dl) H (Negative) Microbiology and Other Data: Microbiology 08/06/17 14:25 Nasal Screen MRSA (PCR)([facility]) - Final Nasal Mrsa Negative Influenza Types A,B Antigen ([facility]) - Final Specimen received for Influenza A/B Molecular testing Assess/Plan/Problems-Billing Assessment: 86 yo M with hx of HTN, hypothyroidism, DM, COPD , liver abscess and thoracic spine osteo in 03/2016, as well as dementia presents with sepsis and lethargy - Patient Problems (1) Sepsis Current Visit: Yes Status: Resolved Comment: Due to cholelithiasis/passed stone. No evidence of cholangitis. E. coli bacteremia still present 08/08. Res to quinolones, ampi, sens to cefazolin. Continue cefazolin, finish 7 days IV antibiotic starting from 08/08, consider 1 week oral antibiotic after that. Changed to low fat diet 08/09. LFT's virtually wnl 08/10. Calorie counts requested 08/10. So far LFT's are improving (2) Encephalopathy acute Current Visit: Yes Status: Acute Code(s): G93.40 - ENCEPHALOPATHY, UNSPECIFIED SNOMED Code(s): 2031006 Comment: Pt has underlying dementia for which he is on Aricept, but up to this admission he was able to live independently with stereotyper helper. Increase in dementia expected with severe medical illness. PT/Ot eval suggests that he may need STR. (3) NICO (acute kidney injury) Current Visit: No Status: Acute Code(s): N17.9 - ACUTE KIDNEY FAILURE, UNSPECIFIED SNOMED Code(s): 02155697 Comment: Due to sepsis. Resolved. (4) Diabetes Current Visit: No Status: Chronic Code(s): E11.9 - TYPE 2 DIABETES MELLITUS WITHOUT COMPLICATIONS SNOMED Code(s): 53988611 Comment: Lantus started 08/09, increased 08/10 and again 08/11 6 PM. (5) Hypokalemia Current Visit: Yes Status: Acute Code(s): E87.6 - HYPOKALEMIA SNOMED Code( s): 05728580 Comment: IV KCL started 08/08. KCL increased to 20 meq qid, random urine K+ requested. Reduce IV to 75 ml, try to wean and see if he can hydrated himself. BMP 08/12. (6) Gallstones Current Visit: Yes Status: Acute Code(s): K80.20 - CALCULUS OF GALLBLADDER W /O CHOLECYSTITIS W/O OBSTRUCTION SNOMED Code(s): 336319234 Comment: Seen on CT. Repeat CBC, CMP, CRP 08/10. Repeat blood C&S 08/10, consider further sepsis wup if CRP and WBC not better. If LFT's normalize, no need for further GI wup. (7) Hypothyroidism Current Visit: No Status: Chronic Code(s): E03.9 - HYPOTHYROIDISM, UNSPECIFIED SNOMED Code(s): 82282978 Comment: TSH 2.4 on 08/06/17, continue synthroid (8) Decubitus skin ulcer Current Visit: Yes Status: Acute Code(s): L89.90 - PRESSURE ULCER OF UNSPECIFIED SITE, UNSPECIFIED STAGE SNOMED Code(s): 624783962 Comment: Two shallow moist ulcer on buttocks. Barrier cream applied. Continue Swenson catheter to protect his skin. Status and Disposition: inpatient
[2017-08-11] MEDS: NS 0.45% KCl 20 Meq 1000 ML* 1,000 ML IV SCH (17:37)
--- NOTE | 2017-08-11 17:57 | PN ---
Progress Note - Progress Note Date of Service: 08/11/17 - Gastroenterology Note: Patient seen and examined. No new overnight issues. No complaints. Vital Signs: Temp Pulse Resp BP Pulse Ox 99 F 86 20 114/65 99 08/11/17 17:39 08/11/17 17:39 08/11/17 17:39 08/11/17 17:39 08/11/17 17:39 GENERAL: NAD, oriented to self only. HEENT: anicteric sclera B/L. CV: RR. PULM: CTAB. ABDOMENl soft, NT/ND +BS. EXTREMITIES: B/L SCDs, no edema. Laboratory Results - last 24 hr 08/10/17 08/10/17 08/11/17 21:05 21:10 08:24 POC Glucose (mg/dL) 232 H 182 H Urine Potassium 56.4 08/11/17 08/11/17 12:32 17:21 POC Glucose (mg/dL) 311 H 276 H Urine Potassium A/P: 87 yo male who presents with sepsis and found to have cholelithiasis and abnormal LFTs on admission. 1. Abnormal LFTs with cholelithiasis ~LFTs have improved significantly. ~On IV abx for E-coli bacteremia. ~IVFs. ~Advanced to low fat diet today. ~Continue conservative management at this time. ~Will sign-off. Please call back us with any further questions or concerns. Jacqueline Sorensen D.O.
[2017-08-11] MEDS: Insulin GLARGINE(*) 1 UNITS UNIT SUBCUT SCH (18:06)
[2017-08-12] MEDS: ceFAZolin 2 GM PREMIX (*) 2 GM/50 ML BAG IVPB SCH ×3 (01:14→17:55)
[2017-08-12 07:10] LABS: BUN/Creatinine Ratio 22.3 (8-20); Calcium 8.5 mg/dL (8.6-10.3); EGFR African American 97.6 (>60); EGFR Non-African American 75.9 (>60); Potassium 4.2 mmol/L (3.5-5.0)
[2017-08-12] MEDS: Insulin LISPRO* 1 UNITS UNIT SUBCUT SCH ×4 (07:24→21:02)
[2017-08-12] MEDS: Levothyroxine TAB* 75 MCG TAB PO SCH (07:38)
[2017-08-12] MEDS: Omeprazole CAP* 20 MG PO SCH ×2 (07:38→21:03)
[2017-08-12] MEDS: Tamsulosin CAP* 0.4 MG PO SCH (07:39)
[2017-08-12] MEDS: Potassium Chlor TAB* 20 MEQ TAB.ER PO SCH ×4 (07:40→21:02)
[2017-08-12] MEDS: Fondaparinux* 2.5 MG/0.5 ML SYRINGE SUBCUT SCH (09:02)
[2017-08-12] MEDS: Nystatin CREAM* 15 GM TUBE TOPICAL SCH ×3 (10:26→21:05)
--- NOTE | 2017-08-12 17:45 | PN ---
Subjective Date of Service: 08/12/17 Interval History: No complaints Would like shea removed Objective Active Medications: Dextrose (D50w Syringe 50 Ml*) 12.5 gm IV PUSH .FOR FS < 60 - SS PRN PRN Reason: FS < 60 Fondaparinux (Arixtra*) 2.5 mg SUBCUT DAILY [facility] Last Admin: 08/12/17 09:02 Dose: 2.5 mg Cefazolin Sodium/Dextrose (Kefzol 2 Gm Premix(*)) 2 gm in 50 mls @ 100 mls/hr IVPB Q8H [facility] Stop: 08/15/17 10:00 Last Admin: 08/12/17 09:03 Dose: 100 mls/hr Potassium Chloride/Sodium Chloride (Ns 0.45% Kcl 20 Meq 1000 Ml*) 1,000 mls @ 60 mls/hr IV PER RATE [facility] Last Admin: 08/11/17 17:37 Dose: 60 mls/hr Insulin Glargine (Lantus(*)) 18 units SUBCUT Q24H [facility] Last Admin: 08/11/17 18:06 Dose: 18 units Insulin Human Lispro (Humalog*) 0 units SUBCUT ACHS [facility] PRN Reason: Protocol Last Admin: 08/12/17 12:46 Dose: 4 units Levothyroxine Sodium (Synthroid Tab*) 75 mcg PO 0800 [facility] Last Admin: 08/12/17 07:38 Dose: 75 mcg Magnesium Hydroxide (Milk Of Magnesia Liq*) 60 ml PO DAILY PRN PRN Reason: CONSTIPATION Last Admin: 08/10/17 21:25 Dose: 60 ml Morphine Sulfate (Morphine Inj (Syringe)*) 2 mg IV Q4H PRN PRN Reason: PAIN - MILD Last Admin: 08/09/17 02:30 Dose: 2 mg Nystatin (Nystatin Cream*) 1 applic TOPICAL TID [facility] Last Admin: 08/12/17 10:26 Dose: 1 applic Omeprazole (Prilosec Cap*) 20 mg PO BID [facility] Last Admin: 08/12/17 07:38 Dose: 20 mg Potassium Chloride (Klor Con Er Tab*) 20 meq PO QID [facility] Last Admin: 08/12/17 12:46 Dose: 20 meq Tamsulosin HCl (Flomax Cap*) 0.4 mg PO DAILY [facility] Last Admin: 08/12/17 07:39 Dose: 0.4 mg Vital Signs 08/11/17 08/11/17 08/11/17 19:32 20:50 23:38 Temperature 98.9 F 99.3 F Pulse Rate 83 79 Respiratory 16 16 16 Rate Blood Pressure 106/61 104/51 (mmHg) O2 Sat by Pulse 98 96 Oximetry 08/12/17 08/12/17 08/12/17 04:03 07:27 07:43 Temperature 97.9 F 98.3 F Pulse Rate 78 82 Respiratory 16 16 16 Rate Blood Pressure 107/65 110/65 (mmHg) O2 Sat by Pulse 98 98 Oximetry 08/12/17 08/12/17 08/12/17 11:23 11:31 12:13 Temperature 98.3 F 98.3 F Pulse Rate 82 86 Respiratory 16 16 Rate Blood Pressure 117/61 117/61 (mmHg) O2 Sat by Pulse 97 96 Oximetry Oxygen Devices in Use Now: None Appearance: stated age, sitting in chair, NAD Eyes: No Scleral Icterus, PERRLA Ears/Nose/Mouth/Throat: Clear Oropharnyx, Mucous Membranes Moist Neck: NL Appearance and Movements; NL JVP, Trachea Midline, No Thyroid Enlargement, Masses Respiratory: Symmetrical Chest Expansion and Respiratory Effort Cardiovascular: RRR Abdominal: - - soft, NTTP, mild distention, +bs Extremities: No Edema Skin: No Rash or Ulcers Neurological: - - aox 2 to self and hospital, thinks he is in [place], will not guess at the year Result Diagrams: 08/10/17 05:13 08/12/17 05:45 Additional Lab and Data: Lab Results 08/06/17 08/06/17 08/06/17 Range/Units 08:15 08:15 08:15 WBC 12.7 H (3.5-10.8) 10^3/ul RBC 4.20 (4.0-5.4) 10^6/ul Hgb 13.2 L (14.0-18.0) g/dl Hct 39 L (42-52) % MCV 92 (80-94) fL MCH 31 (27-31) pg MCHC 34 (31-36) g/dl RDW 14 (10.5-15) % Plt Count 170 (150-450) 10^3/ul MPV 9 (7.4-10.4) um3 Neut % (Auto) 93.8 H (38-83) % Lymph % (Auto) 3.1 L (25-47) % [place] % (Auto) 2.6 (1-9) % Eos % (Auto) 0.2 (0-6) % Baso % (Auto) 0.3 (0-2) % Absolute Neuts (auto) 11.9 H (1.5-7.7) 10^3/ul Absolute Lymphs (auto) 0.4 L (1.0-4.8) 10^3/ul Absolute Monos (auto) 0.3 (0-0.8) 10^3/ul Absolute Eos (auto) 0 (0-0.6) 10^3/ul Absolute Basos (auto) 0 (0-0.2) 10^3/ul Absolute Nucleated RBC 0.02 10^3/ul Nucleated RBC % 0.2 INR (Anticoag Therapy) 1.49 H (0.89-1.11) Sodium 137 (133-145) mmol/L Potassium 3.8 (3.5-5.0) mmol/L Chloride 100 L (101-111) mmol/L Carbon Dioxide 24 (22-32) mmol/L Anion Gap 13 H (2-11) mmol/L BUN 47 H (6-24) mg/dL Creatinine 1.69 H (0.67-1.17) mg/dL Est GFR ( Amer) 49.6 (>60) Est GFR (Non-Af Amer) 38.6 (>60) BUN/Creatinine Ratio 27.8 H (8-20) Glucose 236 H (70-100) mg/dL Lactic Acid (0.5-2.0) mmol/L Calcium 10.1 (8.6-10.3) mg/dL Total Bilirubin 4.80 H (0.2-1.0) mg/dL AST 426 H (13-39) U/L ALT 768 H (7-52) U/L Alkaline Phosphatase 128 H (34-104) U/L Troponin I 0.08 H* (<0.04) ng/mL C-Reactive Protein 223.67 H (< 5.00) mg/L Total Protein 7.3 (6.4-8.9) g/dL Albumin 3.8 (3.2-5.2) g/dL Globulin 3.5 (2-4) g/dL Albumin/Globulin Ratio 1.1 (1-3) Urine Color Urine Appearance Urine pH (5-9) Ur Specific [place] (1.010-1.030) Urine Protein (Negative) Urine Ketones (Negative) Urine Blood (Negative) Urine Nitrate (Negative) Urine Bilirubin (Negative) Urine Urobilinogen (Negative) Ur Leukocyte Esterase (Negative) Urine WBC (Auto) (Absent) Urine RBC (Auto) (Absent) Ur Squamous Epith Cells (Absent) Urine Bacteria (Absent) Urine Glucose (Negative) 08/06/17 08/06/17 Range/Units 08:15 08:15 WBC (3.5-10.8) 10^3/ul RBC (4.0-5.4) 10^6/ul Hgb (14.0-18.0) g/dl Hct (42-52) % MCV (80-94) fL MCH (27-31) pg MCHC (31-36) g/dl RDW (10.5-15) % Plt Count (150-450) 10^3/ul MPV (7.4-10.4) um3 Neut % (Auto) (38-83) % Lymph % (Auto) (25-47) % [place] % (Auto) (1-9) % Eos % (Auto) (0-6) % Baso % (Auto) (0-2) % Absolute Neuts (auto) (1.5-7.7) 10^3/ul Absolute Lymphs (auto) (1.0-4.8) 10^3/ul Absolute Monos (auto) (0-0.8) 10^3/ul Absolute Eos (auto) (0-0.6) 10^3/ul Absolute Basos (auto) (0-0.2) 10^3/ul Absolute Nucleated RBC 10^3/ul Nucleated RBC % INR (Anticoag Therapy) (0.89-1.11) Sodium (133-145) mmol/L Potassium (3.5-5.0) mmol/L Chloride (101-111) mmol/L Carbon Dioxide (22-32) mmol/L Anion Gap (2-11) mmol/L BUN (6-24) mg/dL Creatinine (0.67-1.17) mg/dL Est GFR ( Amer) (>60) Est GFR (Non-Af Amer) (>60) BUN/Creatinine Ratio (8-20) Glucose (70-100) mg/dL Lactic Acid 4.5 H* (0.5-2.0) mmol/L Calcium (8.6-10.3) mg/dL Total Bilirubin (0.2-1.0) mg/dL AST (13-39) U/L ALT (7-52) U/L Alkaline Phosphatase (34-104) U/L Troponin I (<0.04) ng/mL C-Reactive Protein (< 5.00) mg/L Total Protein (6.4-8.9) g/dL Albumin (3.2-5.2) g/dL Globulin (2-4) g/dL Albumin/Globulin Ratio (1-3) Urine Color [place] Urine Appearance Cloudy Urine pH 6.0 (5-9) Ur Specific [place] 1.017 (1.010-1.030) Urine Protein 2+(100 mg/dl) H (Negative) Urine Ketones Negative (Negative) Urine Blood 1+ H (Negative) Urine Nitrate Negative (Negative) Urine Bilirubin Negative (Negative) Urine Urobilinogen Positive H (Negative) Ur Leukocyte Esterase Negative (Negative) Urine WBC (Auto) 1+(6-10/hpf) H (Absent) Urine RBC (Auto) Trace(0-2/hpf) (Absent) Ur Squamous Epith Cells Present H (Absent) Urine Bacteria Absent (Absent) Urine Glucose 2+(150 mg/dl) H (Negative) Microbiology and Other Data: Microbiology 08/06/17 14:25 Nasal Screen MRSA (PCR)([facility]) - Final Nasal Mrsa Negative Influenza Types A,B Antigen ([facility]) - Final Specimen received for Influenza A/B Molecular testing Assess/Plan/Problems-Billing Assessment: 86 yo M with hx of HTN, hypothyroidism, DM, COPD , liver abscess and thoracic spine osteo in 03/2016, as well as dementia presents with sepsis and lethargy - Patient Problems (1) Sepsis Comment: E. coli bacteremia suspected in setting of passed CBD stone. No e/o cholangitis c.w cefazolin IV last day 08/15 and 1 weeks oral after (2) NICO (acute kidney injury) Comment: Due to sepsis. Resolved. (3) Decubitus skin ulcer Comment: Two shallow moist ulcer on buttocks. Barrier cream applied. 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 Increase in dementia expected with severe medical illness. PT/Ot eval suggests that he may need STR. (6) Gallstones Comment: Seen on CT. LFTs no normalized (7) Hypothyroidism Comment: TSH 2.4 on 08/06/17, continue synthroid (8) DVT prophylaxis Comment: arixtra Status and Disposition: inpatient [facility] Wednesday after IV abx completed
[2017-08-12] MEDS: Insulin GLARGINE(*) 1 UNITS UNIT SUBCUT SCH (17:59)
[2017-08-13] MEDS: ceFAZolin 2 GM PREMIX (*) 2 GM/50 ML BAG IVPB SCH ×3 (01:00→16:35)
[2017-08-13] MEDS: Levothyroxine TAB* 75 MCG TAB PO SCH (07:47)
[2017-08-13] MEDS: Insulin LISPRO* 1 UNITS UNIT SUBCUT SCH ×4 (07:49→20:55)
[2017-08-13] MEDS: Potassium Chlor TAB* 20 MEQ TAB.ER PO SCH ×4 (08:11→20:31)
[2017-08-13] MEDS: Tamsulosin CAP* 0.4 MG PO SCH (08:11)
[2017-08-13] MEDS: Fondaparinux* 2.5 MG/0.5 ML SYRINGE SUBCUT SCH (08:11)
[2017-08-13] MEDS: Omeprazole CAP* 20 MG PO SCH ×2 (08:11→20:30)
[2017-08-13] MEDS: Nystatin CREAM* 15 GM TUBE TOPICAL SCH ×3 (08:11→21:10)
--- NOTE | 2017-08-13 12:36 | RAD ---
HISTORY: Abdominal distention and pain COMPARISONS: CT dated August 06, 2017 VIEWS: Frontal and left lateral decubitus views of the stomach FINDINGS: BOWEL: There is diffuse distention mild dilatation of small bowel loops. There is a large amount of stool within the colon. CALCULI: There are no abnormal calculi. BONES AND SOFT TISSUES: Degenerative changes are noted OTHER FINDINGS: The lung bases are clear. There is no subphrenic gas. IMPRESSION: DIFFUSE DISTENTION MILD DILATATION OF SMALL BOWEL LOOPS SUGGESTIVE OF EARLY OR PARTIAL SMALL BOWEL OBSTRUCTION VERSUS ILEUS.
--- NOTE | 2017-08-13 16:24 | PN ---
Subjective Date of Service: 08/13/17 Interval History: Seen and examined Has no complaints Objective Active Medications: Dextrose (D50w Syringe 50 Ml*) 12.5 gm IV PUSH .FOR FS < 60 - SS PRN PRN Reason: FS < 60 Fondaparinux (Arixtra*) 2.5 mg SUBCUT DAILY [facility] Last Admin: 08/13/17 08:11 Dose: 2.5 mg Cefazolin Sodium/Dextrose (Kefzol 2 Gm Premix(*)) 2 gm in 50 mls @ 100 mls/hr IVPB Q8H [facility] Stop: 08/15/17 10:00 Last Admin: 08/13/17 08:08 Dose: 100 mls/hr Potassium Chloride/Sodium Chloride (Ns 0.45% Kcl 20 Meq 1000 Ml*) 1,000 mls @ 60 mls/hr IV PER RATE [facility] Last Admin: 08/11/17 17:37 Dose: 60 mls/hr Insulin Glargine (Lantus(*)) 18 units SUBCUT Q24H [facility] Last Admin: 08/12/17 17:59 Dose: 18 units Insulin Human Lispro (Humalog*) 0 units SUBCUT ACHS [facility] PRN Reason: Protocol Last Admin: 08/13/17 15:56 Dose: Not Given Levothyroxine Sodium (Synthroid Tab*) 75 mcg PO 0800 [facility] Last Admin: 08/13/17 07:47 Dose: 75 mcg Magnesium Hydroxide (Milk Of Magnesia Liq*) 60 ml PO DAILY PRN PRN Reason: CONSTIPATION Last Admin: 08/10/17 21:25 Dose: 60 ml Nystatin (Nystatin Cream*) 1 applic TOPICAL TID [facility] Last Admin: 08/13/17 13:09 Dose: 1 applic Omeprazole (Prilosec Cap*) 20 mg PO BID [facility] Last Admin: 08/13/17 08:11 Dose: 20 mg Potassium Chloride (Klor Con Er Tab*) 20 meq PO QID [facility] Last Admin: 08/13/17 13:09 Dose: 20 meq Tamsulosin HCl (Flomax Cap*) 0.4 mg PO DAILY [facility] Last Admin: 08/13/17 08:11 Dose: 0.4 mg Vital Signs 08/12/17 08/12/17 08/12/17 19:55 20:00 23:12 Temperature 98.3 F 98.6 F Pulse Rate 79 77 Respiratory 20 16 18 Rate Blood Pressure 121/48 128/67 (mmHg) O2 Sat by Pulse 100 95 Oximetry 08/13/17 08/13/17 08/13/17 04:08 07:10 08:00 Temperature 98.8 F 98.2 F Pulse Rate 85 88 Respiratory 22 16 16 Rate Blood Pressure 129/66 142/79 (mmHg) O2 Sat by Pulse 95 98 Oximetry 08/13/17 11:17 Temperature 98.7 F Pulse Rate 96 Respiratory 19 Rate Blood Pressure 112/77 (mmHg) O2 Sat by Pulse 99 Oximetry Oxygen Devices in Use Now: None Appearance: NAD Eyes: No Scleral Icterus, PERRLA Ears/Nose/Mouth/Throat: Clear Oropharnyx, Mucous Membranes Moist Neck: NL Appearance and Movements; NL JVP Respiratory: Symmetrical Chest Expansion and Respiratory Effort, Clear to Auscultation Cardiovascular: RRR Abdominal: - - soft, NTTP, distened, +bs Lymphatic: No Cervical Adenopathy Extremities: No Edema Neurological: - - Aox2 Result Diagrams: 08/10/17 05:13 08/12/17 05:45 Additional Lab and Data: Lab Results 08/06/17 08/06/17 08/06/17 Range/Units 08:15 08:15 08:15 WBC 12.7 H (3.5-10.8) 10^3/ul RBC 4.20 (4.0-5.4) 10^6/ul Hgb 13.2 L (14.0-18.0) g/dl Hct 39 L (42-52) % MCV 92 (80-94) fL MCH 31 (27-31) pg MCHC 34 (31-36) g/dl RDW 14 (10.5-15) % Plt Count 170 (150-450) 10^3/ul MPV 9 (7.4-10.4) um3 Neut % (Auto) 93.8 H (38-83) % Lymph % (Auto) 3.1 L (25-47) % [place] % (Auto) 2.6 (1-9) % Eos % (Auto) 0.2 (0-6) % Baso % (Auto) 0.3 (0-2) % Absolute Neuts (auto) 11.9 H (1.5-7.7) 10^3/ul Absolute Lymphs (auto) 0.4 L (1.0-4.8) 10^3/ul Absolute Monos (auto) 0.3 (0-0.8) 10^3/ul Absolute Eos (auto) 0 (0-0.6) 10^3/ul Absolute Basos (auto) 0 (0-0.2) 10^3/ul Absolute Nucleated RBC 0.02 10^3/ul Nucleated RBC % 0.2 INR (Anticoag Therapy) 1.49 H (0.89-1.11) Sodium 137 (133-145) mmol/L Potassium 3.8 (3.5-5.0) mmol/L Chloride 100 L (101-111) mmol/L Carbon Dioxide 24 (22-32) mmol/L Anion Gap 13 H (2-11) mmol/L BUN 47 H (6-24) mg/dL Creatinine 1.69 H (0.67-1.17) mg/dL Est GFR ( Amer) 49.6 (>60) Est GFR (Non-Af Amer) 38.6 (>60) BUN/Creatinine Ratio 27.8 H (8-20) Glucose 236 H (70-100) mg/dL Lactic Acid (0.5-2.0) mmol/L Calcium 10.1 (8.6-10.3) mg/dL Total Bilirubin 4.80 H (0.2-1.0) mg/dL AST 426 H (13-39) U/L ALT 768 H (7-52) U/L Alkaline Phosphatase 128 H (34-104) U/L Troponin I 0.08 H* (<0.04) ng/mL C-Reactive Protein 223.67 H (< 5.00) mg/L Total Protein 7.3 (6.4-8.9) g/dL Albumin 3.8 (3.2-5.2) g/dL Globulin 3.5 (2-4) g/dL Albumin/Globulin Ratio 1.1 (1-3) Urine Color Urine Appearance Urine pH (5-9) Ur Specific [place] (1.010-1.030) Urine Protein (Negative) Urine Ketones (Negative) Urine Blood (Negative) Urine Nitrate (Negative) Urine Bilirubin (Negative) Urine Urobilinogen (Negative) Ur Leukocyte Esterase (Negative) Urine WBC (Auto) (Absent) Urine RBC (Auto) (Absent) Ur Squamous Epith Cells (Absent) Urine Bacteria (Absent) Urine Glucose (Negative) 08/06/17 08/06/17 Range/Units 08:15 08:15 WBC (3.5-10.8) 10^3/ul RBC (4.0-5.4) 10^6/ul Hgb (14.0-18.0) g/dl Hct (42-52) % MCV (80-94) fL MCH (27-31) pg MCHC (31-36) g/dl RDW (10.5-15) % Plt Count (150-450) 10^3/ul MPV (7.4-10.4) um3 Neut % (Auto) (38-83) % Lymph % (Auto) (25-47) % [place] % (Auto) (1-9) % Eos % (Auto) (0-6) % Baso % (Auto) (0-2) % Absolute Neuts (auto) (1.5-7.7) 10^3/ul Absolute Lymphs (auto) (1.0-4.8) 10^3/ul Absolute Monos (auto) (0-0.8) 10^3/ul Absolute Eos (auto) (0-0.6) 10^3/ul Absolute Basos (auto) (0-0.2) 10^3/ul Absolute Nucleated RBC 10^3/ul Nucleated RBC % INR (Anticoag Therapy) (0.89-1.11) Sodium (133-145) mmol/L Potassium (3.5-5.0) mmol/L Chloride (101-111) mmol/L Carbon Dioxide (22-32) mmol/L Anion Gap (2-11) mmol/L BUN (6-24) mg/dL Creatinine (0.67-1.17) mg/dL Est GFR ( Amer) (>60) Est GFR (Non-Af Amer) (>60) BUN/Creatinine Ratio (8-20) Glucose (70-100) mg/dL Lactic Acid 4.5 H* (0.5-2.0) mmol/L Calcium (8.6-10.3) mg/dL Total Bilirubin (0.2-1.0) mg/dL AST (13-39) U/L ALT (7-52) U/L Alkaline Phosphatase (34-104) U/L Troponin I (<0.04) ng/mL C-Reactive Protein (< 5.00) mg/L Total Protein (6.4-8.9) g/dL Albumin (3.2-5.2) g/dL Globulin (2-4) g/dL Albumin/Globulin Ratio (1-3) Urine Color [place] Urine Appearance Cloudy Urine pH 6.0 (5-9) Ur Specific [place] 1.017 (1.010-1.030) Urine Protein 2+(100 mg/dl) H (Negative) Urine Ketones Negative (Negative) Urine Blood 1+ H (Negative) Urine Nitrate Negative (Negative) Urine Bilirubin Negative (Negative) Urine Urobilinogen Positive H (Negative) Ur Leukocyte Esterase Negative (Negative) Urine WBC (Auto) 1+(6-10/hpf) H (Absent) Urine RBC (Auto) Trace(0-2/hpf) (Absent) Ur Squamous Epith Cells Present H (Absent) Urine Bacteria Absent (Absent) Urine Glucose 2+(150 mg/dl) H (Negative) Microbiology and Other Data: Microbiology 08/06/17 14:25 Nasal Screen MRSA (PCR)([facility]) - Final Nasal Mrsa Negative Influenza Types A,B Antigen ([facility]) - Final Specimen received for Influenza A/B Molecular testing Assess/Plan/Problems-Billing Assessment: 86 yo M with hx of HTN, hypothyroidism, DM, COPD , liver abscess and thoracic spine osteo in 03/2016, as well as dementia presents with sepsis and lethargy - Patient Problems (1) Small bowel obstruction Comment: Ileus v early SBO. No nausea or vomiting Make NPO and follow (2) Sepsis Comment: E. coli bacteremia suspected in setting of passed CBD stone. No e/o cholangitis c.w cefazolin IV last day 08/15 and 1 weeks oral after (3) NICO (acute kidney injury) Comment: Due to sepsis. Resolved. (4) Decubitus skin ulcer Comment: Two shallow moist ulcer on buttocks. Barrier cream applied. 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 Increase in dementia expected with severe medical illness. PT/Ot eval suggests that he may need STR. (7) Gallstones Comment: Seen on CT. LFTs no normalized (8) Hypothyroidism Comment: TSH 2.4 on 08/06/17, continue synthroid (9) DVT prophylaxis Comment: arixtra Status and Disposition: inpatient [facility] Wednesday after IV abx completed
[2017-08-13] MEDS: NS 0.45% KCl 20 Meq 1000 ML* 1,000 ML IV SCH (19:45)
[2017-08-13] MEDS: Insulin GLARGINE(*) 1 UNITS UNIT SUBCUT SCH (21:11)
[2017-08-14] MEDS: ceFAZolin 2 GM PREMIX (*) 2 GM/50 ML BAG IVPB SCH ×3 (01:06→16:38)
[2017-08-14] MEDS: Insulin LISPRO* 1 UNITS UNIT SUBCUT SCH ×4 (09:19→20:58)
[2017-08-14] MEDS: Fondaparinux* 2.5 MG/0.5 ML SYRINGE SUBCUT SCH (09:20)
[2017-08-14 09:21] LABS: Hematocrit 37 % (42-52); Hemoglobin 12.2 g/dl (14.0-18.0); Mean Corpuscular HGB Conc 33 g/dl (31-36); Mean Corpuscular Hemoglobin 31 pg (27-31); Mean Corpuscular Volume 93 fL (80-94); Mean Platelet Volume 9 um3 (7.4-10.4); Red Blood Count 3.96 10^6/ul (4.0-5.4); Red Cell Distribution Width 15 % (10.5-15); White Blood Count 13.6 10^3/ul (3.5-10.8)
[2017-08-14] MEDS: Omeprazole CAP* 20 MG PO SCH ×2 (09:22→20:59)
[2017-08-14] MEDS: Tamsulosin CAP* 0.4 MG PO SCH (09:22)
[2017-08-14] MEDS: Levothyroxine TAB* 75 MCG TAB PO SCH (09:22)
[2017-08-14] MEDS ORDERED: NS 0.9% 1000 ML* 1,000 ML IV SCH (09:30)
--- NOTE | 2017-08-14 09:32 | PN ---
Subjective Date of Service: 08/14/17 Interval History: Events form overnight reviewed Reported periods of apnea, hooked up to continuous o2 monitoring without episodes of desaturation No BMs Abdomen recorded as firm in nursing notes but remains soft today on exam Pt has been sleepy but easily awakes. He is upset with my cold hands. He jokes with me about his name and is AOx2 but quickly returns to sleep Objective Active Medications: Dextrose (D50w Syringe 50 Ml*) 12.5 gm IV PUSH .FOR FS < 60 - SS PRN PRN Reason: FS < 60 Fondaparinux (Arixtra*) 2.5 mg SUBCUT DAILY [facility] Last Admin: 08/14/17 09:20 Dose: 2.5 mg Cefazolin Sodium/Dextrose (Kefzol 2 Gm Premix(*)) 2 gm in 50 mls @ 100 mls/hr IVPB Q8H [facility] Stop: 08/15/17 10:00 Last Admin: 08/14/17 09:12 Dose: 100 mls/hr Insulin Glargine (Lantus(*)) 10 units SUBCUT Q24H [facility] Last Admin: 08/13/17 21:11 Dose: 10 units Insulin Human Lispro (Humalog*) 0 units SUBCUT ACHS [facility] PRN Reason: Protocol Last Admin: 08/14/17 09:19 Dose: 2 units Levothyroxine Sodium (Synthroid Tab*) 75 mcg PO 0800 [facility] Last Admin: 08/14/17 09:22 Dose: 75 mcg Magnesium Hydroxide (Milk Of Magnesia Liq*) 60 ml PO DAILY PRN PRN Reason: CONSTIPATION Last Admin: 08/10/17 21:25 Dose: 60 ml Nystatin (Nystatin Cream*) 1 applic TOPICAL TID [facility] Last Admin: 08/13/17 21:10 Dose: 1 applic Omeprazole (Prilosec Cap*) 20 mg PO BID [facility] Last Admin: 08/14/17 09:22 Dose: 20 mg Potassium Chloride (Klor Con Er Tab*) 20 meq PO QID [facility] Last Admin: 08/13/17 20:31 Dose: Not Given Tamsulosin HCl (Flomax Cap*) 0.4 mg PO DAILY [facility] Last Admin: 08/14/17 09:22 Dose: 0.4 mg Vital Signs 08/13/17 08/13/17 08/13/17 11:17 16:24 19:29 Temperature 98.7 F 98.3 F 98.0 F Pulse Rate 96 88 86 Respiratory 19 16 16 Rate Blood Pressure 112/77 113/69 130/67 (mmHg) O2 Sat by Pulse 99 96 97 Oximetry 08/13/17 08/13/17 08/14/17 20:00 23:27 03:14 Temperature 98.2 F 99.1 F Pulse Rate 91 81 Respiratory 16 16 16 Rate Blood Pressure 130/63 120/74 (mmHg) O2 Sat by Pulse 97 100 Oximetry Oxygen Devices in Use Now: None Appearance: sitting up in bed, NAD Eyes: No Scleral Icterus, PERRLA Ears/Nose/Mouth/Throat: Clear Oropharnyx, - - dry MM Neck: NL Appearance and Movements; NL JVP, Trachea Midline Respiratory: Symmetrical Chest Expansion and Respiratory Effort, Clear to Auscultation Cardiovascular: NL Sounds; No Murmurs; No JVD, RRR Abdominal: - - soft, distended, NTTP, +bs in 4 quadrants Extremities: No Edema, No Clubbing, Cyanosis Skin: No Rash or Ulcers Neurological: - - AOx2 to self and hospital but will not guess year. Moves all extremities, cn2-12 intact Result Diagrams: 08/14/17 08:57 08/12/17 05:45 Additional Lab and Data: Lab Results 08/06/17 08/06/17 08/06/17 Range/Units 08:15 08:15 08:15 WBC 12.7 H (3.5-10.8) 10^3/ul RBC 4.20 (4.0-5.4) 10^6/ul Hgb 13.2 L (14.0-18.0) g/dl Hct 39 L (42-52) % MCV 92 (80-94) fL MCH 31 (27-31) pg MCHC 34 (31-36) g/dl RDW 14 (10.5-15) % Plt Count 170 (150-450) 10^3/ul MPV 9 (7.4-10.4) um3 Neut % (Auto) 93.8 H (38-83) % Lymph % (Auto) 3.1 L (25-47) % [place] % (Auto) 2.6 (1-9) % Eos % (Auto) 0.2 (0-6) % Baso % (Auto) 0.3 (0-2) % Absolute Neuts (auto) 11.9 H (1.5-7.7) 10^3/ul Absolute Lymphs (auto) 0.4 L (1.0-4.8) 10^3/ul Absolute Monos (auto) 0.3 (0-0.8) 10^3/ul Absolute Eos (auto) 0 (0-0.6) 10^3/ul Absolute Basos (auto) 0 (0-0.2) 10^3/ul Absolute Nucleated RBC 0.02 10^3/ul Nucleated RBC % 0.2 INR (Anticoag Therapy) 1.49 H (0.89-1.11) Sodium 137 (133-145) mmol/L Potassium 3.8 (3.5-5.0) mmol/L Chloride 100 L (101-111) mmol/L Carbon Dioxide 24 (22-32) mmol/L Anion Gap 13 H (2-11) mmol/L BUN 47 H (6-24) mg/dL Creatinine 1.69 H (0.67-1.17) mg/dL Est GFR ( Amer) 49.6 (>60) Est GFR (Non-Af Amer) 38.6 (>60) BUN/Creatinine Ratio 27.8 H (8-20) Glucose 236 H (70-100) mg/dL Lactic Acid (0.5-2.0) mmol/L Calcium 10.1 (8.6-10.3) mg/dL Total Bilirubin 4.80 H (0.2-1.0) mg/dL AST 426 H (13-39) U/L ALT 768 H (7-52) U/L Alkaline Phosphatase 128 H (34-104) U/L Troponin I 0.08 H* (<0.04) ng/mL C-Reactive Protein 223.67 H (< 5.00) mg/L Total Protein 7.3 (6.4-8.9) g/dL Albumin 3.8 (3.2-5.2) g/dL Globulin 3.5 (2-4) g/dL Albumin/Globulin Ratio 1.1 (1-3) Urine Color Urine Appearance Urine pH (5-9) Ur Specific [place] (1.010-1.030) Urine Protein (Negative) Urine Ketones (Negative) Urine Blood (Negative) Urine Nitrate (Negative) Urine Bilirubin (Negative) Urine Urobilinogen (Negative) Ur Leukocyte Esterase (Negative) Urine WBC (Auto) (Absent) Urine RBC (Auto) (Absent) Ur Squamous Epith Cells (Absent) Urine Bacteria (Absent) Urine Glucose (Negative) 08/06/17 08/06/17 Range/Units 08:15 08:15 WBC (3.5-10.8) 10^3/ul RBC (4.0-5.4) 10^6/ul Hgb (14.0-18.0) g/dl Hct (42-52) % MCV (80-94) fL MCH (27-31) pg MCHC (31-36) g/dl RDW (10.5-15) % Plt Count (150-450) 10^3/ul MPV (7.4-10.4) um3 Neut % (Auto) (38-83) % Lymph % (Auto) (25-47) % [place] % (Auto) (1-9) % Eos % (Auto) (0-6) % Baso % (Auto) (0-2) % Absolute Neuts (auto) (1.5-7.7) 10^3/ul Absolute Lymphs (auto) (1.0-4.8) 10^3/ul Absolute Monos (auto) (0-0.8) 10^3/ul Absolute Eos (auto) (0-0.6) 10^3/ul Absolute Basos (auto) (0-0.2) 10^3/ul Absolute Nucleated RBC 10^3/ul Nucleated RBC % INR (Anticoag Therapy) (0.89-1.11) Sodium (133-145) mmol/L Potassium (3.5-5.0) mmol/L Chloride (101-111) mmol/L Carbon Dioxide (22-32) mmol/L Anion Gap (2-11) mmol/L BUN (6-24) mg/dL Creatinine (0.67-1.17) mg/dL Est GFR ( Amer) (>60) Est GFR (Non-Af Amer) (>60) BUN/Creatinine Ratio (8-20) Glucose (70-100) mg/dL Lactic Acid 4.5 H* (0.5-2.0) mmol/L Calcium (8.6-10.3) mg/dL Total Bilirubin (0.2-1.0) mg/dL AST (13-39) U/L ALT (7-52) U/L Alkaline Phosphatase (34-104) U/L Troponin I (<0.04) ng/mL C-Reactive Protein (< 5.00) mg/L Total Protein (6.4-8.9) g/dL Albumin (3.2-5.2) g/dL Globulin (2-4) g/dL Albumin/Globulin Ratio (1-3) Urine Color [place] Urine Appearance Cloudy Urine pH 6.0 (5-9) Ur Specific [place] 1.017 (1.010-1.030) Urine Protein 2+(100 mg/dl) H (Negative) Urine Ketones Negative (Negative) Urine Blood 1+ H (Negative) Urine Nitrate Negative (Negative) Urine Bilirubin Negative (Negative) Urine Urobilinogen Positive H (Negative) Ur Leukocyte Esterase Negative (Negative) Urine WBC (Auto) 1+(6-10/hpf) H (Absent) Urine RBC (Auto) Trace(0-2/hpf) (Absent) Ur Squamous Epith Cells Present H (Absent) Urine Bacteria Absent (Absent) Urine Glucose 2+(150 mg/dl) H (Negative) Microbiology and Other Data: Microbiology 08/06/17 14:25 Nasal Screen MRSA (PCR)([facility]) - Final Nasal Mrsa Negative Influenza Types A,B Antigen ([facility]) - Final Specimen received for Influenza A/B Molecular testing Assess/Plan/Problems-Billing Assessment: 86 yo M with hx of HTN, hypothyroidism, DM, COPD , liver abscess and thoracic spine osteo in 03/2016, as well as dementia presents with sepsis and lethargy - Patient Problems (1) Small bowel obstruction Comment: Ileus v early SBO. No nausea or vomiting Make NPO and follow repeat abdominal film today (2) Sepsis Comment: E. coli bacteremia suspected in setting of passed CBD stone. No e/o cholangitis c.w cefazolin IV last day 1112 and 1 weeks oral after repeat blood cultures to ensure they have cleared check cbc/bmp/CRP (3) NICO (acute kidney injury) Comment: Due to sepsis. Resolved. (4) Decubitus skin ulcer Comment: Two shallow moist ulcer on buttocks. Barrier cream applied. Maintain shea (5) Diabetes Comment: Lantus started 08/09, increased 08/10 and again 08/11 to 18units lispro SS Decrease to 10 units after made NPO 08/13 (6) Encephalopathy acute Comment: Pt has underlying dementia for which he is on Aricept, but up to this admission he was able to live independently with buttermaker helper. Increase in dementia expected with severe medical illness. PT/OT eval suggests that he may need STR. Labs above to r/o continued infection (7) Gallstones Comment: Seen on CT. LFTs no normalized (8) Hypothyroidism Comment: TSH 2.4 on 08/06/17, continue synthroid (9) DVT prophylaxis Comment: arixtra Status and Disposition: inpatient [facility] Wednesday after IV abx completed
[2017-08-14] MEDS: Potassium Chlor TAB* 20 MEQ TAB.ER PO SCH ×2 (09:33→12:56)
[2017-08-14 09:50] LABS: Albumin 2.8 g/dL (3.2-5.2); BUN/Creatinine Ratio 18.8 (8-20); C Reactive Protein 152.37 mg/L (< 5.00); Calcium 8.9 mg/dL (8.6-10.3); Direct Bilirubin 0.3 mg/dL (0.03-0.18); EGFR African American 95.3 (>60); EGFR Non-African American 74.1 (>60); Globulin 3.8 g/dL (2-4); Indirect Bilirubin 0.4 mg/dL (0.3-1.0); Potassium 4.4 mmol/L (3.5-5.0); Total Bilirubin 0.7 mg/dL (0.2-1.0); Total Protein 6.6 g/dL (6.4-8.9)
--- NOTE | 2017-08-14 13:14 | RAD ---
HISTORY: Continued distention and pain COMPARISONS: August 13, 2017 VIEWS: Frontal and left lateral decubitus views of the abdomen. FINDINGS: BOWEL: Again noted is diffuse distention and mild dilatation of small bowel loops. This is similar to the previous examination. There is gaseous distention of the colon. There is large amount of stool within the colon. CALCULI: There are no abnormal calculi. BONES AND SOFT TISSUES: Degenerative changes are noted. OTHER FINDINGS: The lung bases are clear. There is no subphrenic gas. IMPRESSION: AGAIN NOTED IS DIFFUSE DISTENTION AND MILD DILATATION OF SMALL BOWEL LOOPS, THE DIFFERENTIAL INCLUDES ILEUS VERSUS PARTIAL OR EARLY OBSTRUCTION.
[2017-08-14] MEDS: Nystatin CREAM* 15 GM TUBE TOPICAL SCH ×4 (13:42→21:01)
[2017-08-14] MEDS: Insulin GLARGINE(*) 1 UNITS UNIT SUBCUT SCH (20:59)
[2017-08-15] MEDS: ceFAZolin 2 GM PREMIX (*) 2 GM/50 ML BAG IVPB SCH ×2 (00:35→08:37)
[2017-08-15] MEDS: Levothyroxine TAB* 75 MCG TAB PO SCH (08:36)
[2017-08-15] MEDS: Tamsulosin CAP* 0.4 MG PO SCH (08:36)
[2017-08-15] MEDS: Omeprazole CAP* 20 MG PO SCH ×2 (08:36→21:40)
[2017-08-15] MEDS: Insulin LISPRO* 1 UNITS UNIT SUBCUT SCH ×4 (08:36→21:40)
[2017-08-15] MEDS: Nystatin CREAM* 15 GM TUBE TOPICAL SCH ×3 (08:37→21:41)
[2017-08-15] MEDS: Fondaparinux* 2.5 MG/0.5 ML SYRINGE SUBCUT SCH (08:37)
--- NOTE | 2017-08-15 13:10 | PN ---
Subjective Date of Service: 08/15/17 Interval History: Tolerated clear liquid diet but abdomen became more distended. No flatus nor BM. Denies pain. If no BM by tomorrow with check CT scan. Pt without complaint. Objective Active Medications: Dextrose (D50w Syringe 50 Ml*) 12.5 gm IV PUSH .FOR FS < 60 - SS PRN PRN Reason: FS < 60 Fondaparinux (Arixtra*) 2.5 mg SUBCUT DAILY [facility] Last Admin: 08/15/17 08:37 Dose: 2.5 mg Insulin Glargine (Lantus(*)) 10 units SUBCUT Q24H [facility] Last Admin: 08/14/17 20:59 Dose: 10 units Insulin Human Lispro (Humalog*) 0 units SUBCUT ACHS [facility] PRN Reason: Protocol Last Admin: 08/15/17 12:31 Dose: 2 units Levothyroxine Sodium (Synthroid Tab*) 75 mcg PO 0800 [facility] Last Admin: 08/15/17 08:36 Dose: 75 mcg Magnesium Hydroxide (Milk Of Magnesia Liq*) 60 ml PO DAILY PRN PRN Reason: CONSTIPATION Last Admin: 08/10/17 21:25 Dose: 60 ml Nystatin (Nystatin Cream*) 1 applic TOPICAL TID [facility] Last Admin: 08/15/17 08:37 Dose: 1 applic Omeprazole (Prilosec Cap*) 20 mg PO BID [facility] Last Admin: 08/15/17 08:36 Dose: 20 mg Tamsulosin HCl (Flomax Cap*) 0.4 mg PO DAILY [facility] Last Admin: 08/15/17 08:36 Dose: 0.4 mg Vital Signs 08/14/17 08/14/17 08/14/17 15:18 20:00 20:17 Temperature 97.8 F Pulse Rate 87 89 Respiratory 20 16 14 Rate Blood Pressure 115/64 114/65 (mmHg) O2 Sat by Pulse 97 98 98 Oximetry 08/14/17 08/15/17 23:42 05:03 Temperature 98.3 F 97.4 F Pulse Rate 91 94 Respiratory 16 16 Rate Blood Pressure 133/55 109/89 (mmHg) O2 Sat by Pulse 97 97 Oximetry Oxygen Devices in Use Now: None Appearance: sitting in chair. Interactive today, remebers my hands were cold yesterday, NAD Ears/Nose/Mouth/Throat: Mucous Membranes Moist, - - poor dentition Neck: NL Appearance and Movements; NL JVP, Trachea Midline Respiratory: Symmetrical Chest Expansion and Respiratory Effort, Clear to Auscultation Cardiovascular: RRR, - - 2/6 OUMAR Abdominal: - - soft, distended, +bs 4q, NTTP no rebound/guarding Lymphatic: No Cervical Adenopathy Extremities: No Edema Skin: No Rash or Ulcers Neurological: - - AOx2 to self and hospital but not year. Remembers recent events. cn2-12 intact Result Diagrams: 08/14/17 08:57 08/14/17 08:57 Additional Lab and Data: Lab Results 08/06/17 08/06/17 08/06/17 Range/Units 08:15 08:15 08:15 WBC 12.7 H (3.5-10.8) 10^3/ul RBC 4.20 (4.0-5.4) 10^6/ul Hgb 13.2 L (14.0-18.0) g/dl Hct 39 L (42-52) % MCV 92 (80-94) fL MCH 31 (27-31) pg MCHC 34 (31-36) g/dl RDW 14 (10.5-15) % Plt Count 170 (150-450) 10^3/ul MPV 9 (7.4-10.4) um3 Neut % (Auto) 93.8 H (38-83) % Lymph % (Auto) 3.1 L (25-47) % [place] % (Auto) 2.6 (1-9) % Eos % (Auto) 0.2 (0-6) % Baso % (Auto) 0.3 (0-2) % Absolute Neuts (auto) 11.9 H (1.5-7.7) 10^3/ul Absolute Lymphs (auto) 0.4 L (1.0-4.8) 10^3/ul Absolute Monos (auto) 0.3 (0-0.8) 10^3/ul Absolute Eos (auto) 0 (0-0.6) 10^3/ul Absolute Basos (auto) 0 (0-0.2) 10^3/ul Absolute Nucleated RBC 0.02 10^3/ul Nucleated RBC % 0.2 INR (Anticoag Therapy) 1.49 H (0.89-1.11) Sodium 137 (133-145) mmol/L Potassium 3.8 (3.5-5.0) mmol/L Chloride 100 L (101-111) mmol/L Carbon Dioxide 24 (22-32) mmol/L Anion Gap 13 H (2-11) mmol/L BUN 47 H (6-24) mg/dL Creatinine 1.69 H (0.67-1.17) mg/dL Est GFR ( Amer) 49.6 (>60) Est GFR (Non-Af Amer) 38.6 (>60) BUN/Creatinine Ratio 27.8 H (8-20) Glucose 236 H (70-100) mg/dL Lactic Acid (0.5-2.0) mmol/L Calcium 10.1 (8.6-10.3) mg/dL Total Bilirubin 4.80 H (0.2-1.0) mg/dL AST 426 H (13-39) U/L ALT 768 H (7-52) U/L Alkaline Phosphatase 128 H (34-104) U/L Troponin I 0.08 H* (<0.04) ng/mL C-Reactive Protein 223.67 H (< 5.00) mg/L Total Protein 7.3 (6.4-8.9) g/dL Albumin 3.8 (3.2-5.2) g/dL Globulin 3.5 (2-4) g/dL Albumin/Globulin Ratio 1.1 (1-3) Urine Color Urine Appearance Urine pH (5-9) Ur Specific [place] (1.010-1.030) Urine Protein (Negative) Urine Ketones (Negative) Urine Blood (Negative) Urine Nitrate (Negative) Urine Bilirubin (Negative) Urine Urobilinogen (Negative) Ur Leukocyte Esterase (Negative) Urine WBC (Auto) (Absent) Urine RBC (Auto) (Absent) Ur Squamous Epith Cells (Absent) Urine Bacteria (Absent) Urine Glucose (Negative) 08/06/17 08/06/17 Range/Units 08:15 08:15 WBC (3.5-10.8) 10^3/ul RBC (4.0-5.4) 10^6/ul Hgb (14.0-18.0) g/dl Hct (42-52) % MCV (80-94) fL MCH (27-31) pg MCHC (31-36) g/dl RDW (10.5-15) % Plt Count (150-450) 10^3/ul MPV (7.4-10.4) um3 Neut % (Auto) (38-83) % Lymph % (Auto) (25-47) % [place] % (Auto) (1-9) % Eos % (Auto) (0-6) % Baso % (Auto) (0-2) % Absolute Neuts (auto) (1.5-7.7) 10^3/ul Absolute Lymphs (auto) (1.0-4.8) 10^3/ul Absolute Monos (auto) (0-0.8) 10^3/ul Absolute Eos (auto) (0-0.6) 10^3/ul Absolute Basos (auto) (0-0.2) 10^3/ul Absolute Nucleated RBC 10^3/ul Nucleated RBC % INR (Anticoag Therapy) (0.89-1.11) Sodium (133-145) mmol/L Potassium (3.5-5.0) mmol/L Chloride (101-111) mmol/L Carbon Dioxide (22-32) mmol/L Anion Gap (2-11) mmol/L BUN (6-24) mg/dL Creatinine (0.67-1.17) mg/dL Est GFR ( Amer) (>60) Est GFR (Non-Af Amer) (>60) BUN/Creatinine Ratio (8-20) Glucose (70-100) mg/dL Lactic Acid 4.5 H* (0.5-2.0) mmol/L Calcium (8.6-10.3) mg/dL Total Bilirubin (0.2-1.0) mg/dL AST (13-39) U/L ALT (7-52) U/L Alkaline Phosphatase (34-104) U/L Troponin I (<0.04) ng/mL C-Reactive Protein (< 5.00) mg/L Total Protein (6.4-8.9) g/dL Albumin (3.2-5.2) g/dL Globulin (2-4) g/dL Albumin/Globulin Ratio (1-3) Urine Color [place] Urine Appearance Cloudy Urine pH 6.0 (5-9) Ur Specific [place] 1.017 (1.010-1.030) Urine Protein 2+(100 mg/dl) H (Negative) Urine Ketones Negative (Negative) Urine Blood 1+ H (Negative) Urine Nitrate Negative (Negative) Urine Bilirubin Negative (Negative) Urine Urobilinogen Positive H (Negative) Ur Leukocyte Esterase Negative (Negative) Urine WBC (Auto) 1+(6-10/hpf) H (Absent) Urine RBC (Auto) Trace(0-2/hpf) (Absent) Ur Squamous Epith Cells Present H (Absent) Urine Bacteria Absent (Absent) Urine Glucose 2+(150 mg/dl) H (Negative) Microbiology and Other Data: Microbiology 08/06/17 14:25 Nasal Screen MRSA (PCR)([facility]) - Final Nasal Mrsa Negative Influenza Types A,B Antigen ([facility]) - Final Specimen received for Influenza A/B Molecular testing Assess/Plan/Problems-Billing Assessment: 86 yo M with hx of HTN, hypothyroidism, DM, COPD , liver abscess and thoracic spine osteo in 03/2016, as well as dementia presents with sepsis and lethargy with stay c/b ileus vs SBO - Patient Problems (1) Small bowel obstruction Comment: Ileus v early SBO. No nausea or vomiting Make NPO and follow plan on CT tomorrow if no improvement (2) Sepsis Comment: E. coli bacteremia suspected in setting of passed CBD stone. No e/o cholangitis c.w cefazolin IV last day 08/15 and 1 weeks oral after repeat blood cultures remain negative (3) NICO (acute kidney injury) Comment: Due to sepsis. Resolved. (4) Decubitus skin ulcer Comment: Two shallow moist ulcer on buttocks. Barrier cream applied. Maintain shea (5) Diabetes Comment: Lantus started 08/09, increased 08/10 and again 08/11 to 18units lispro SS Decrease to 10 units after made NPO 08/13 (6) Encephalopathy acute Comment: Pt has underlying dementia for which he is on Aricept, but up to this admission he was able to live independently with repairer helper. Increase in dementia expected with severe medical illness. PT/OT eval suggests that he may need STR. Labs above to r/o continued infection (7) Gallstones Comment: Seen on CT. LFTs no normalized (8) Hypothyroidism Comment: TSH 2.4 on 11/3/17, continue synthroid (9) DVT prophylaxis Comment: arixtra Status and Disposition: inpatient [facility] Wednesday after IV abx completed which may be delayed 2/2 SBO
[2017-08-15] MEDS: Insulin GLARGINE(*) 1 UNITS UNIT SUBCUT SCH (21:40)
[2017-08-16 07:07] LABS: Hematocrit 36 % (42-52); Hemoglobin 11.9 g/dl (14.0-18.0); Mean Corpuscular HGB Conc 33 g/dl (31-36); Mean Corpuscular Hemoglobin 31 pg (27-31); Mean Corpuscular Volume 93 fL (80-94); Mean Platelet Volume 8 um3 (7.4-10.4); Red Blood Count 3.89 10^6/ul (4.0-5.4); Red Cell Distribution Width 14 % (10.5-15); White Blood Count 10.5 10^3/ul (3.5-10.8)
[2017-08-16 07:21] LABS: Calcium 9.1 mg/dL (8.6-10.3); EGFR African American 100.1 (>60); EGFR Non-African American 77.8 (>60); Potassium 3.9 mmol/L (3.5-5.0)
[2017-08-16] MEDS: Levothyroxine TAB* 75 MCG TAB PO SCH (08:02)
[2017-08-16] MEDS: Insulin LISPRO* 1 UNITS UNIT SUBCUT SCH ×4 (08:03→21:00)
[2017-08-16 08:42] LABS: BUN/Creatinine Ratio 22.8 (8-20)
[2017-08-16] MEDS ORDERED: Diatrizoate Meg/Sod(CONTRAST) 30 ML ORAL.SOLN PO ONE (09:30)
[2017-08-16] MEDS: Fondaparinux* 2.5 MG/0.5 ML SYRINGE SUBCUT SCH (10:39)
[2017-08-16] MEDS: Nystatin CREAM* 15 GM TUBE TOPICAL SCH ×4 (10:39→21:18)
[2017-08-16] MEDS: Omeprazole CAP* 20 MG PO SCH ×2 (10:39→21:18)
[2017-08-16] MEDS: Tamsulosin CAP* 0.4 MG PO SCH (10:39)
--- NOTE | 2017-08-16 14:48 | RAD ---
CLINICAL HISTORY: Small bowel obstruction COMPARISON: August 06, 2017 TECHNIQUE: Multiple contiguous axial CT scans were obtained of the abdomen and pelvis, without intravenous contrast enhancement. Coronal and sagittal multiplanar reformations are submitted for review. Oral contrast was administered. FINDINGS: The study is limited by the lack of intravenous contrast. This limits evaluation of the solid organs and vasculature. LUNG BASES: The lung bases are clear. LIVER: The liver is normal in shape, size, contour, and attenuation. BILE DUCTS: There is no intrahepatic or extrahepatic biliary dilatation. GALLBLADDER: Several gallstones are noted. There is no pericholecystic inflammatory change. PANCREAS: There is extensive peripancreatic inflammatory change surrounding the head of the pancreas. SPLEEN: Normal in size and appearance. UPPER GI TRACT: Evaluation of the gastrointestinal tract is limited by incomplete gastric distention. There is a large paraesophageal hiatal hernia. SMALL BOWEL AND MESENTERY: The small bowel is normal in contour, course, and caliber. There is no obstruction or dilatation. COLON: There are multiple diverticula of the sigmoid colon. There is no pericolonic inflammatory change. ADRENALS: Normal bilaterally. KIDNEYS: Renal cysts are noted BLADDER: There is a diverticulum of the posterolateral bladder on the right. PELVIC ORGANS: The pelvic organs are not visualized. AORTA: There is calcific atherosclerotic disease of the abdominal aorta and its branches, without aneurysmal dilatation IVC: Unremarkable LYMPH NODES: There is no lymphadenopathy by size criteria. ABDOMINAL WALL: There is no evidence for abdominal wall hernia. BONES AND SOFT TISSUES: Degenerative changes are noted of the spine. There are bilateral pars defects at L5. There are findings consistent with the sequela of previous osteomyelitis/discitis of the lower thoracic spine. OTHER: None IMPRESSION: 1. NO OBSTRUCTION. 2. THERE HAS BEEN INTERVAL DEVELOPMENT OF PERIPANCREATIC INFLAMMATORY CHANGE CONCERNING FOR ACUTE PANCREATITIS. 3. DIVERTICULOSIS. 4. ATHEROSCLEROSIS. 5. HIATAL HERNIA.
--- NOTE | 2017-08-16 16:17 | PN ---
Subjective Date of Service: 08/16/17 Interval History: Pt denies pain, no nausea/vomiting He would like to go to [facility] and fitness to work out Abdomen remains distended but no N/V, no flatus nor BM Objective Active Medications: Dextrose (D50w Syringe 50 Ml*) 12.5 gm IV PUSH .FOR FS < 60 - SS PRN PRN Reason: FS < 60 Fondaparinux (Arixtra*) 2.5 mg SUBCUT DAILY [facility] Last Admin: 08/16/17 10:39 Dose: 2.5 mg Insulin Glargine (Lantus(*)) 10 units SUBCUT Q24H [facility] Last Admin: 08/15/17 21:40 Dose: 10 units Insulin Human Lispro (Humalog*) 0 units SUBCUT ACHS [facility] PRN Reason: Protocol Last Admin: 08/16/17 12:21 Dose: 1 units Levothyroxine Sodium (Synthroid Tab*) 75 mcg PO 0800 [facility] Last Admin: 08/16/17 08:02 Dose: 75 mcg Magnesium Hydroxide (Milk Of Magnesia Liq*) 60 ml PO DAILY PRN PRN Reason: CONSTIPATION Last Admin: 08/10/17 21:25 Dose: 60 ml Nystatin (Nystatin Cream*) 1 applic TOPICAL TID [facility] Last Admin: 08/16/17 10:39 Dose: 1 applic Omeprazole (Prilosec Cap*) 20 mg PO BID [facility] Last Admin: 08/16/17 10:39 Dose: 20 mg Tamsulosin HCl (Flomax Cap*) 0.4 mg PO DAILY [facility] Last Admin: 08/16/17 10:39 Dose: 0.4 mg Vital Signs 08/15/17 08/15/17 08/15/17 19:41 20:00 23:25 Temperature 99.6 F Pulse Rate 98 95 Respiratory 20 16 17 Rate Blood Pressure 114/72 130/59 (mmHg) O2 Sat by Pulse 100 94 94 Oximetry 08/16/17 08/16/17 08/16/17 05:46 07:59 08:00 Temperature 98.2 F 97.6 F Pulse Rate 94 93 Respiratory 17 18 18 Rate Blood Pressure 126/75 101/58 (mmHg) O2 Sat by Pulse 98 95 95 Oximetry Oxygen Devices in Use Now: None Appearance: NAD Eyes: No Scleral Icterus, PERRLA Ears/Nose/Mouth/Throat: Clear Oropharnyx, Mucous Membranes Moist Neck: NL Appearance and Movements; NL JVP, Trachea Midline Respiratory: Symmetrical Chest Expansion and Respiratory Effort, Clear to Auscultation Cardiovascular: RRR Abdominal: - - soft, NTTP, distended, +bs, no rebound/guarding Lymphatic: No Cervical Adenopathy Extremities: No Edema, No Clubbing, Cyanosis Skin: No Rash or Ulcers Neurological: - - AOx2 but will not say what year it is Result Diagrams: 08/16/17 06:42 08/16/17 06:42 Additional Lab and Data: Lab Results 08/06/17 08/06/17 08/06/17 Range/Units 08:15 08:15 08:15 WBC 12.7 H (3.5-10.8) 10^3/ul RBC 4.20 (4.0-5.4) 10^6/ul Hgb 13.2 L (14.0-18.0) g/dl Hct 39 L (42-52) % MCV 92 (80-94) fL MCH 31 (27-31) pg MCHC 34 (31-36) g/dl RDW 14 (10.5-15) % Plt Count 170 (150-450) 10^3/ul MPV 9 (7.4-10.4) um3 Neut % (Auto) 93.8 H (38-83) % Lymph % (Auto) 3.1 L (25-47) % [place] % (Auto) 2.6 (1-9) % Eos % (Auto) 0.2 (0-6) % Baso % (Auto) 0.3 (0-2) % Absolute Neuts (auto) 11.9 H (1.5-7.7) 10^3/ul Absolute Lymphs (auto) 0.4 L (1.0-4.8) 10^3/ul Absolute Monos (auto) 0.3 (0-0.8) 10^3/ul Absolute Eos (auto) 0 (0-0.6) 10^3/ul Absolute Basos (auto) 0 (0-0.2) 10^3/ul Absolute Nucleated RBC 0.02 10^3/ul Nucleated RBC % 0.2 INR (Anticoag Therapy) 1.49 H (0.89-1.11) Sodium 137 (133-145) mmol/L Potassium 3.8 (3.5-5.0) mmol/L Chloride 100 L (101-111) mmol/L Carbon Dioxide 24 (22-32) mmol/L Anion Gap 13 H (2-11) mmol/L BUN 47 H (6-24) mg/dL Creatinine 1.69 H (0.67-1.17) mg/dL Est GFR ( Amer) 49.6 (>60) Est GFR (Non-Af Amer) 38.6 (>60) BUN/Creatinine Ratio 27.8 H (8-20) Glucose 236 H (70-100) mg/dL Lactic Acid (0.5-2.0) mmol/L Calcium 10.1 (8.6-10.3) mg/dL Total Bilirubin 4.80 H (0.2-1.0) mg/dL AST 426 H (13-39) U/L ALT 768 H (7-52) U/L Alkaline Phosphatase 128 H (34-104) U/L Troponin I 0.08 H* (<0.04) ng/mL C-Reactive Protein 223.67 H (< 5.00) mg/L Total Protein 7.3 (6.4-8.9) g/dL Albumin 3.8 (3.2-5.2) g/dL Globulin 3.5 (2-4) g/dL Albumin/Globulin Ratio 1.1 (1-3) Urine Color Urine Appearance Urine pH (5-9) Ur Specific [place] (1.010-1.030) Urine Protein (Negative) Urine Ketones (Negative) Urine Blood (Negative) Urine Nitrate (Negative) Urine Bilirubin (Negative) Urine Urobilinogen (Negative) Ur Leukocyte Esterase (Negative) Urine WBC (Auto) (Absent) Urine RBC (Auto) (Absent) Ur Squamous Epith Cells (Absent) Urine Bacteria (Absent) Urine Glucose (Negative) 08/06/17 08/06/17 Range/Units 08:15 08:15 WBC (3.5-10.8) 10^3/ul RBC (4.0-5.4) 10^6/ul Hgb (14.0-18.0) g/dl Hct (42-52) % MCV (80-94) fL MCH (27-31) pg MCHC (31-36) g/dl RDW (10.5-15) % Plt Count (150-450) 10^3/ul MPV (7.4-10.4) um3 Neut % (Auto) (38-83) % Lymph % (Auto) (25-47) % [place] % (Auto) (1-9) % Eos % (Auto) (0-6) % Baso % (Auto) (0-2) % Absolute Neuts (auto) (1.5-7.7) 10^3/ul Absolute Lymphs (auto) (1.0-4.8) 10^3/ul Absolute Monos (auto) (0-0.8) 10^3/ul Absolute Eos (auto) (0-0.6) 10^3/ul Absolute Basos (auto) (0-0.2) 10^3/ul Absolute Nucleated RBC 10^3/ul Nucleated RBC % INR (Anticoag Therapy) (0.89-1.11) Sodium (133-145) mmol/L Potassium (3.5-5.0) mmol/L Chloride (101-111) mmol/L Carbon Dioxide (22-32) mmol/L Anion Gap (2-11) mmol/L BUN (6-24) mg/dL Creatinine (0.67-1.17) mg/dL Est GFR ( Amer) (>60) Est GFR (Non-Af Amer) (>60) BUN/Creatinine Ratio (8-20) Glucose (70-100) mg/dL Lactic Acid 4.5 H* (0.5-2.0) mmol/L Calcium (8.6-10.3) mg/dL Total Bilirubin (0.2-1.0) mg/dL AST (13-39) U/L ALT (7-52) U/L Alkaline Phosphatase (34-104) U/L Troponin I (<0.04) ng/mL C-Reactive Protein (< 5.00) mg/L Total Protein (6.4-8.9) g/dL Albumin (3.2-5.2) g/dL Globulin (2-4) g/dL Albumin/Globulin Ratio (1-3) Urine Color [place] Urine Appearance Cloudy Urine pH 6.0 (5-9) Ur Specific [place] 1.017 (1.010-1.030) Urine Protein 2+(100 mg/dl) H (Negative) Urine Ketones Negative (Negative) Urine Blood 1+ H (Negative) Urine Nitrate Negative (Negative) Urine Bilirubin Negative (Negative) Urine Urobilinogen Positive H (Negative) Ur Leukocyte Esterase Negative (Negative) Urine WBC (Auto) 1+(6-10/hpf) H (Absent) Urine RBC (Auto) Trace(0-2/hpf) (Absent) Ur Squamous Epith Cells Present H (Absent) Urine Bacteria Absent (Absent) Urine Glucose 2+(150 mg/dl) H (Negative) Microbiology and Other Data: Microbiology 08/06/17 14:25 Nasal Screen MRSA (PCR)(ADRIÁN) - Final Nasal Mrsa Negative Influenza Types A,B Antigen (ADRIÁN) - Final Specimen received for Influenza A/B Molecular testing Assess/Plan/Problems-Billing Assessment: 86 yo M with hx of HTN, hypothyroidism, DM, COPD , liver abscess and thoracic spine osteo in 03/2016, as well as dementia presents with sepsis and lethargy with stay c/b ileus vs SBO - Patient Problems (1) Pancreatitis Comment: concern for pancreatitis on CT performed today to evaluate for SBO Pt is without abdominal pain Check lipase/amylase/LFTs Maintain NPO Will not tx with agressive fluids unless lipase or amylase are significantly elevated (2) Small bowel obstruction Comment: No e/o SBO on Ct scan today although abdomen remains distended. Pancreatic inflammation on CT (3) Sepsis Comment: E. coli bacteremia suspected in setting of passed CBD stone. No e/o cholangitis c.w cefazolin IV last day 08/15 and 1 weeks oral after (will c/w IV while NPO) repeat blood cultures remain negative (4) NICO (acute kidney injury) Comment: Due to sepsis. Resolved. (5) Decubitus skin ulcer Comment: Two shallow moist ulcer on buttocks. Barrier cream applied. 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 Increase in dementia expected with severe medical illness. PT/OT eval suggests that he may need STR. Labs above to r/o continued infection (8) Gallstones Comment: Seen on CT. 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
[2017-08-16 16:51] LABS: AST 14 U/L (13-39); Alkaline Phosphatase 114 U/L (34-104); Amylase 58 U/L (29-103); Indirect Bilirubin 0.4 mg/dL (0.3-1.0); Lipase 59 U/L (11.0-82.0)
[2017-08-16 18:48] LABS: ALT < 3 U/L (7-52)
[2017-08-16] MEDS: Insulin GLARGINE(*) 1 UNITS UNIT SUBCUT SCH (21:18)
[2017-08-17] MEDS ORDERED: Polyethylene Glycol 3350* 17 GM PACKET PO ONE (07:11)
[2017-08-17] MEDS: Insulin LISPRO* 1 UNITS UNIT SUBCUT SCH ×4 (07:18→21:55)
[2017-08-17] MEDS: Omeprazole CAP* 20 MG PO SCH ×2 (07:25→17:35)
[2017-08-17] MEDS: Levothyroxine TAB* 75 MCG TAB PO SCH (07:25)
[2017-08-17] MEDS: Tamsulosin CAP* 0.4 MG PO SCH (09:10)
[2017-08-17] MEDS: Fondaparinux* 2.5 MG/0.5 ML SYRINGE SUBCUT SCH (09:10)
[2017-08-17] MEDS: Nystatin CREAM* 15 GM TUBE TOPICAL SCH ×3 (09:15→22:06)
--- NOTE | 2017-08-17 15:16 | PN ---
Subjective Date of Service: 08/17/17 Interval History: More alert today No BM Can not tell me if he has had flatus No complaints Objective Active Medications: Dextrose (D50w Syringe 50 Ml*) 12.5 gm IV PUSH .FOR FS < 60 - SS PRN PRN Reason: FS < 60 Fondaparinux (Arixtra*) 2.5 mg SUBCUT DAILY [facility] Last Admin: 08/17/17 09:10 Dose: 2.5 mg Insulin Glargine (Lantus(*)) 10 units SUBCUT Q24H [facility] Last Admin: 08/16/17 21:18 Dose: 10 units Insulin Human Lispro (Humalog*) 0 units SUBCUT ACHS [facility] PRN Reason: Protocol Last Admin: 08/17/17 12:38 Dose: 2 units Levothyroxine Sodium (Synthroid Tab*) 75 mcg PO DAILY@0600 [facility] Magnesium Hydroxide (Milk Of Magnesia Liq*) 60 ml PO DAILY PRN PRN Reason: CONSTIPATION Last Admin: 08/10/17 21:25 Dose: 60 ml Nystatin (Nystatin Cream*) 1 applic TOPICAL TID [facility] Last Admin: 08/17/17 12:12 Dose: Not Given Omeprazole (Prilosec Cap*) 20 mg PO BID@0730,1830 [facility] Tamsulosin HCl (Flomax Cap*) 0.4 mg PO DAILY [facility] Last Admin: 08/17/17 09:10 Dose: 0.4 mg Vital Signs 08/16/17 08/16/17 08/16/17 15:15 20:00 20:34 Temperature 97.4 F 97.4 F Pulse Rate 94 90 Respiratory 14 16 14 Rate Blood Pressure 111/51 119/72 (mmHg) O2 Sat by Pulse 97 100 100 Oximetry 08/16/17 08/17/17 08/17/17 23:03 08:00 08:03 Temperature 98.3 F 98.2 F Pulse Rate 91 88 Respiratory 16 16 17 Rate Blood Pressure 119/61 125/64 (mmHg) O2 Sat by Pulse 100 100 100 Oximetry 08/17/17 11:31 Temperature 98.3 F Pulse Rate 92 Respiratory 18 Rate Blood Pressure 110/61 (mmHg) O2 Sat by Pulse 97 Oximetry Oxygen Devices in Use Now: None Appearance: elderly, sitting in bed, NAD Eyes: No Scleral Icterus, PERRLA Ears/Nose/Mouth/Throat: Clear Oropharnyx, Mucous Membranes Moist Neck: NL Appearance and Movements; NL JVP, Trachea Midline Respiratory: Symmetrical Chest Expansion and Respiratory Effort, Clear to Auscultation Cardiovascular: RRR Abdominal: - - soft, NTTP, +distention, +bs Lymphatic: No Cervical Adenopathy Extremities: No Edema Skin: No Rash or Ulcers Neurological: Alert and Oriented x 3 Result Diagrams: 08/16/17 06:42 08/16/17 06:42 Additional Lab and Data: Lab Results 08/06/17 08/06/17 08/06/17 Range/Units 08:15 08:15 08:15 WBC 12.7 H (3.5-10.8) 10^3/ul RBC 4.20 (4.0-5.4) 10^6/ul Hgb 13.2 L (14.0-18.0) g/dl Hct 39 L (42-52) % MCV 92 (80-94) fL MCH 31 (27-31) pg MCHC 34 (31-36) g/dl RDW 14 (10.5-15) % Plt Count 170 (150-450) 10^3/ul MPV 9 (7.4-10.4) um3 Neut % (Auto) 93.8 H (38-83) % Lymph % (Auto) 3.1 L (25-47) % [place] % (Auto) 2.6 (1-9) % Eos % (Auto) 0.2 (0-6) % Baso % (Auto) 0.3 (0-2) % Absolute Neuts (auto) 11.9 H (1.5-7.7) 10^3/ul Absolute Lymphs (auto) 0.4 L (1.0-4.8) 10^3/ul Absolute Monos (auto) 0.3 (0-0.8) 10^3/ul Absolute Eos (auto) 0 (0-0.6) 10^3/ul Absolute Basos (auto) 0 (0-0.2) 10^3/ul Absolute Nucleated RBC 0.02 10^3/ul Nucleated RBC % 0.2 INR (Anticoag Therapy) 1.49 H (0.89-1.11) Sodium 137 (133-145) mmol/L Potassium 3.8 (3.5-5.0) mmol/L Chloride 100 L (101-111) mmol/L Carbon Dioxide 24 (22-32) mmol/L Anion Gap 13 H (2-11) mmol/L BUN 47 H (6-24) mg/dL Creatinine 1.69 H (0.67-1.17) mg/dL Est GFR ( Amer) 49.6 (>60) Est GFR (Non-Af Amer) 38.6 (>60) BUN/Creatinine Ratio 27.8 H (8-20) Glucose 236 H (70-100) mg/dL Lactic Acid (0.5-2.0) mmol/L Calcium 10.1 (8.6-10.3) mg/dL Total Bilirubin 4.80 H (0.2-1.0) mg/dL AST 426 H (13-39) U/L ALT 768 H (7-52) U/L Alkaline Phosphatase 128 H (34-104) U/L Troponin I 0.08 H* (<0.04) ng/mL C-Reactive Protein 223.67 H (< 5.00) mg/L Total Protein 7.3 (6.4-8.9) g/dL Albumin 3.8 (3.2-5.2) g/dL Globulin 3.5 (2-4) g/dL Albumin/Globulin Ratio 1.1 (1-3) Urine Color Urine Appearance Urine pH (5-9) Ur Specific [place] (1.010-1.030) Urine Protein (Negative) Urine Ketones (Negative) Urine Blood (Negative) Urine Nitrate (Negative) Urine Bilirubin (Negative) Urine Urobilinogen (Negative) Ur Leukocyte Esterase (Negative) Urine WBC (Auto) (Absent) Urine RBC (Auto) (Absent) Ur Squamous Epith Cells (Absent) Urine Bacteria (Absent) Urine Glucose (Negative) 08/06/17 08/06/17 Range/Units 08:15 08:15 WBC (3.5-10.8) 10^3/ul RBC (4.0-5.4) 10^6/ul Hgb (14.0-18.0) g/dl Hct (42-52) % MCV (80-94) fL MCH (27-31) pg MCHC (31-36) g/dl RDW (10.5-15) % Plt Count (150-450) 10^3/ul MPV (7.4-10.4) um3 Neut % (Auto) (38-83) % Lymph % (Auto) (25-47) % [place] % (Auto) (1-9) % Eos % (Auto) (0-6) % Baso % (Auto) (0-2) % Absolute Neuts (auto) (1.5-7.7) 10^3/ul Absolute Lymphs (auto) (1.0-4.8) 10^3/ul Absolute Monos (auto) (0-0.8) 10^3/ul Absolute Eos (auto) (0-0.6) 10^3/ul Absolute Basos (auto) (0-0.2) 10^3/ul Absolute Nucleated RBC 10^3/ul Nucleated RBC % INR (Anticoag Therapy) (0.89-1.11) Sodium (133-145) mmol/L Potassium (3.5-5.0) mmol/L Chloride (101-111) mmol/L Carbon Dioxide (22-32) mmol/L Anion Gap (2-11) mmol/L BUN (6-24) mg/dL Creatinine (0.67-1.17) mg/dL Est GFR ( Amer) (>60) Est GFR (Non-Af Amer) (>60) BUN/Creatinine Ratio (8-20) Glucose (70-100) mg/dL Lactic Acid 4.5 H* (0.5-2.0) mmol/L Calcium (8.6-10.3) mg/dL Total Bilirubin (0.2-1.0) mg/dL AST (13-39) U/L ALT (7-52) U/L Alkaline Phosphatase (34-104) U/L Troponin I (<0.04) ng/mL C-Reactive Protein (< 5.00) mg/L Total Protein (6.4-8.9) g/dL Albumin (3.2-5.2) g/dL Globulin (2-4) g/dL Albumin/Globulin Ratio (1-3) Urine Color [place] Urine Appearance Cloudy Urine pH 6.0 (5-9) Ur Specific [place] 1.017 (1.010-1.030) Urine Protein 2+(100 mg/dl) H (Negative) Urine Ketones Negative (Negative) Urine Blood 1+ H (Negative) Urine Nitrate Negative (Negative) Urine Bilirubin Negative (Negative) Urine Urobilinogen Positive H (Negative) Ur Leukocyte Esterase Negative (Negative) Urine WBC (Auto) 1+(6-10/hpf) H (Absent) Urine RBC (Auto) Trace(0-2/hpf) (Absent) Ur Squamous Epith Cells Present H (Absent) Urine Bacteria Absent (Absent) Urine Glucose 2+(150 mg/dl) H (Negative) Microbiology and Other Data: Microbiology 08/06/17 14:25 Nasal Screen MRSA (PCR)(ADRIÁN) - Final Nasal Mrsa Negative Influenza Types A,B Antigen (ADRIÁN) - Final Specimen received for Influenza A/B Molecular testing Assess/Plan/Problems-Billing Assessment: 86 yo M with hx of HTN, hypothyroidism, DM, COPD , liver abscess and thoracic spine osteo in 03/2016, as well as dementia presents with sepsis and lethargy with stay c/b ileus vs SBO - Patient Problems (1) Pancreatitis Comment: concern for pancreatitis on CT performed 08/16 to evaluate for SBO - however no abdominal pain, normal lipase and amylase. No pain with advanced diet. Doubt pancreatitis (2) Small bowel obstruction Comment: No e/o SBO on Ct scan although abdomen remains distended. (3) Sepsis Comment: E. coli bacteremia suspected in setting of passed CBD stone. No e/o cholangitis c.w cefazolin IV last day 08/15 and 1 weeks oral after (will c/w IV while inpatient) repeat blood cultures remain negative (4) NICO (acute kidney injury) Comment: Due to sepsis. Resolved. (5) Decubitus skin ulcer Comment: Two shallow moist ulcer on buttocks. Barrier cream applied. 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 Increase in dementia expected with severe medical illness. PT/OT eval suggests that he may need STR. Labs above to r/o continued infection (8) Gallstones Comment: Seen on CT. 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
[2017-08-17] MEDS: Insulin GLARGINE(*) 1 UNITS UNIT SUBCUT SCH (21:55)
[2017-08-17] MEDS: Magnesium Hydroxide LIQ* 30 ML UDC PO PRN (21:55)
[2017-08-18] MEDS ORDERED: Levothyroxine TAB* 75 MCG TAB PO SCH (06:00)
[2017-08-18] MEDS: Tamsulosin CAP* 0.4 MG PO SCH (08:18)
[2017-08-18] MEDS: Insulin LISPRO* 1 UNITS UNIT SUBCUT SCH ×2 (08:18→11:49)
[2017-08-18] MEDS: Omeprazole CAP* 20 MG PO SCH (08:22)
[2017-08-18] MEDS: Fondaparinux* 2.5 MG/0.5 ML SYRINGE SUBCUT SCH (10:02)
[2017-08-18 11:21] VITALS: BP 120/64
[2017-08-18] MEDS: Nystatin CREAM* 15 GM TUBE TOPICAL SCH (11:40)
--- NOTE | 2017-08-18 12:05 | DS ---
CC: Debora Comer NP * DATE OF ADMISSION: 08/06/2017. DATE OF DISCHARGE: 08/18/2017. PRIMARY CARE PHYSICIAN: Debora Comer NP. PRIMARY DIAGNOSES: 1. Sepsis from a biliary source thought to be secondary to past biliary stone. 2. Ileus. 3. Acute kidney injury. SECONDARY DIAGNOSES: 1. History of DVT. 2. History of HIT. 3. COPD. 4. Hypertension. 5. Hypothyroidism. 6. Type 2 diabetes. 7. Sacral decubitus ulcers. 8. History of osteomyelitis and diskitis in 2016. 9. History of liver abscess. 10. Gout. 11. Peptic ulcer disease. 12. Demand ischemia. MEDICATIONS ON DISCHARGE: 1. Insulin Lantus 10 units in the evening. Please note the addition of Lantus to this patient's medication regimen. 2. Metformin 500 mg twice daily. 3. Protonix 40 mg twice daily. 4. Aspirin 81 mg daily. 5. Flomax 0.4 mg daily. 6. Potassium Chloride 40 mEq twice daily. 7. Multivitamin one tab daily. 8. Cholecalciferol 1000 units daily. 9. Levothyroxine 75 mcg daily. Please note the discontinuation of Chlorthalidone 50 mg daily, being held for normotensive blood pressures and the absence of its administration during the course of this hospital stay. IMAGING PERFORMED DURING THIS HOSPITAL STAY: 1. CT abdomen and pelvis, 08/06/2017: Small dependent bilateral lower lobe infiltrates most consistent with atelectasis, less likely pneumonia. Distended gallbladder with small gallstones without evidence for gallbladder wall thickening or pericholecystic fluid. Wall thickening and cystic changes within the urinary bladder, possibly related to chronic disease, although acute cystitis cannot be excluded. 2. Repeat CAT scan of the abdomen, 08/16/2017: Impression: No bowel obstruction. There has been interval development of peripancreatic inflammatory changes concerning for acute pancreatitis. PERTINENT MICROBIOLOGY: Venous blood culture is positive for E. coli, resistant to Ampicillin, Ciprofloxacin, Levofloxacin, Tetracycline, and Bactrim. PERTINENT LABORATORY DATA: Creatinine on presentation 1.69, decreased to 0.92 on discharge. Troponin I peaked at 0.09 on presentation in the setting of demand ischemia. AST 426, decreased to 14 on discharge. ALT 768, decreased to less than 3 on discharge. Alk phos 128, decreased to 114 on discharge. Total bilirubin 4.8, decreased to 0.7 on discharge. HISTORY OF PRESENT ILLNESS AND HOSPITAL COURSE: This is an 87-year-old man with a past medical history as outlined in the history of present illness on the day of admission who presented to the hospital with two days of abdominal pain, constipation, increasing confusion, found to meet sepsis criteria with an elevated temperature, T-max 101.8, tachycardia, kidney dysfunction in the form of acute renal failure, lactic acidosis with a peak lactic acid of 4.5, and an INR of 1.49. The patient was started on antibiotics, Vancomycin and Zosyn, ultimately narrowed to Cefepime. The blood culture was ultimately positive for E. coli as noted above. In the setting of liver abnormalities in the absence of obstructing stone, the patient was thought to have passed a stone, the etiology for his acute infection without evidence for need for ERCP or cholecystectomy. The patient was seen in conjunction with Gastroenterology and Surgical consultations. The patient improved on antibiotics and was prepared to be discharge after completion of antibiotics; however, he developed a distended abdomen. Abdominal films were suspicious for an ileus versus an early SBO. With failure to improve NPO status, I ultimately checked a CAT scan of the patient's abdomen which did not elucidate a small bowel obstruction, but did indicate evidence for acute pancreatitis. It should be noted that the patient had no abdominal pain and a normal lipase and amylase at that time. The patient was fed without any abdominal pain. The patient was fed without any abdominal pain and was treated with MiraLax which ultimately resulted in several bowel movements the day prior to discharge. On the day of discharge, the patient was tolerating a regular diet without any distress from all perceptives. He was improved, except for physical deconditioning for which he will be transferred to [facility] for continued rehab needs. His Chlorthalidone was held during the course of his hospital stay for normotensive blood pressure. The patient was noted to have diabetes in need of insulin. His hemoglobin A1c was not checked; however, Lantus was increased to 18 units with a sliding scale coverage as well before being decreased to 10 units after being made NPO. He will be discharged on 10 units of Lantus with reintroduction of Metformin upon discharge. AT FOLLOW-UP, PLEASE: 1. Please monitor blood pressure. Reintroduce Chlorthalidone or other agent of your choosing, if necessary. 2. Follow blood glucose control, treat diabetes as necessary. 3. Monitor proper functioning of bowel, may need additional bowel regimen as necessary. Greater than 45 minutes were spent in the discharge of this patient, greater than half was spent [id number] with the patient. [id number] #: [id number] KATTY
== END 2017-08-18 13:10 | DRG 871 ==
LOC: ED 07:15 → ICU 11:57 → SSU 08-08 11:27 → MED 08-12 11:11
PROVIDERS: ADMIT Hospitalist; ATTEND Internal Medicine
DX: A41.51 Sepsis due to Escherichia coli [E. coli] (principal); G93.40 Encephalopathy, unspecified; L89.309 Pressure ulcer of unspecified buttock, unspecified stage; N17.9 Acute kidney failure, unspecified; K85.90 Acute pancreatitis without necrosis or infection, unspecified; E87.2 Acidosis; I24.8 Other forms of acute ischemic heart disease; K56.7 Ileus, unspecified; J98.11 Atelectasis; D75.82 Heparin induced thrombocytopenia (HIT); K80.50 Calculus of bile duct without cholangitis or cholecystitis without obstruction; J44.9 Chronic obstructive pulmonary disease, unspecified; F03.90 Unspecified dementia, unspecified severity, without behavioral disturbance, psychotic disturbance, mood disturbance, and anxiety; R65.20 Severe sepsis without septic shock; E11.9 Type 2 diabetes mellitus without complications; E03.9 Hypothyroidism, unspecified; I10 Essential (primary) hypertension; Z66 Do not resuscitate; M10.9 Gout, unspecified; R74.0 Nonspecific elevation of levels of transaminase and lactic acid dehydrogenase [LDH]; R74.8 Abnormal levels of other serum enzymes; K21.9 Gastro-esophageal reflux disease without esophagitis; N40.0 Benign prostatic hyperplasia without lower urinary tract symptoms; Z96.653 Presence of artificial knee joint, bilateral; Z96.611 Presence of right artificial shoulder joint; R40.2412 Glasgow coma scale score 13-15, at arrival to emergency department; E87.6 Hypokalemia; E78.00 Pure hypercholesterolemia, unspecified; K80.20 Calculus of gallbladder without cholecystitis without obstruction; Z16.11 Resistance to penicillins; Z16.19 Resistance to other specified beta lactam antibiotics; Z16.29 Resistance to other single specified antibiotic; Z86.718 Personal history of other venous thrombosis and embolism; Z87.11 Personal history of peptic ulcer disease; Z87.891 Personal history of nicotine dependence; Z88.8 Allergy status to other drugs, medicaments and biological substances; Z79.4 Long term (current) use of insulin; Z79.82 Long term (current) use of aspirin; Z88.5 Allergy status to narcotic agent
CPT/HCPCS: 36415; 71010; 71250; 74020; 74176; 76705; 80048; 80053; 80074; 80076; 81003; 81015; 82140; 82150; 83605; 83690; 83735; 84133; 84443; 84484; 85025; 85610; 86140; 87040; 87077; 87186; 87205; 87502; 87641; 93005; A9270-GY; G8996-GN-CJ; G8997-GN-CJ; G8998-GN-CJ; J0690; J0692; J2270; J2543; J3370; J3480

== ENCOUNTER 2017-08-25 13:33 | Inpatient (IN) | payer MEDICARE ==
[2017-08-25 14:22] LABS: Hematocrit 39 % (42-52); Hemoglobin 12.9 g/dl (14.0-18.0); Mean Corpuscular HGB Conc 33 g/dl (31-36); Mean Corpuscular Hemoglobin 30 pg (27-31); Mean Corpuscular Volume 92 fL (80-94); Mean Platelet Volume 8 um3 (7.4-10.4); Red Blood Count 4.24 10^6/ul (4.0-5.4); Red Cell Distribution Width 14 % (10.5-15); White Blood Count 13.5 10^3/ul (3.5-10.8)
[2017-08-25 14:33] LABS: Albumin 3.3 g/dL (3.2-5.2); BUN/Creatinine Ratio 16.8 (8-20); Calcium 10.3 mg/dL (8.6-10.3); EGFR African American 74.4 (>60); EGFR Non-African American 57.8 (>60); Globulin 4.5 g/dL (2-4); Total Bilirubin 0.6 mg/dL (0.2-1.0); Total Protein 7.8 g/dL (6.4-8.9)
--- NOTE | 2017-08-25 14:34 | RAD ---
INDICATION: Altered mental status COMPARISON: July 08, 2016 TECHNIQUE: Noncontrast axial source images were acquired from the skull base to the vertex. FINDINGS: Ventricles/sulci: There is cortical atrophy with compensatory dilatation of the CSF spaces. Brain parenchyma: There is periventricular and subcortical white matter change compatible with chronic ischemia. Intracranial hemorrhage:None. Extra-axial spaces: There are no abnormal extra axial fluid collections or evidence of extra-axial mass. Calvarium: There is no calvarial fracture or other calvarial abnormality. Scalp: There is no evidence of scalp or extracalvarial soft tissue abnormality. Paranasal sinuses/mastoid: The paranasal sinuses and mastoid air cells are clear. Other: None. IMPRESSION: CORTICAL ATROPHY WITH CHRONIC MICROVASCULAR ISCHEMIC CHANGES. NO ACUTE FINDINGS.
[2017-08-25 14:36] LABS: Potassium 5.2 mmol/L (3.5-5.0)
[2017-08-25 14:37] LABS: Troponin I 0.04 ng/mL (<0.04)
--- NOTE | 2017-08-25 14:46 | RAD ---
INDICATION: Cough COMPARISON: August 06, 2017 TECHNIQUE: An AP portable view obtained at 1430 hours is submitted. FINDINGS: Bones/Soft Tissues: There are no acute bony findings. Cardiomediastinal: The cardiomediastinal silhouette is normal. Lungs: There is hypoventilation lung bases with a more focal infiltrative change in the left lung base with partial obscuration left hemidiaphragm. The mid and upper lung urena are clear. Pleura: There are no pleural effusions. Other: None IMPRESSION: BIBASILAR HYPOVENTILATION WITH BASILAR INFILTRATE.
[2017-08-25 15:08] LABS: Urine Bacteria Absent (Absent); Urine Bilirubin Negative (Negative); Urine Glucose 1+(50 mg/dL) (Negative); Urine Nitrite Negative (Negative)
[2017-08-25] MEDS ORDERED: cefTRIAXone VIAL(*) 1,000 MG in NS 0.9% 50 ML* 50 ML IVPB ONE (15:32)
[2017-08-25] MEDS ORDERED: Azithromycin IV(*) 500 MG in NS 0.9% 250 ML* 250 ML IVPB ONE (15:32)
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
[2017-08-25] MEDS ORDERED: cefTRIAXone(*) 1 GM ADVAN/BAG ONE (15:46)
[2017-08-25] MEDS ORDERED: NS 0.9% 1000 ML* 1,000 ML IV ONE (15:52)
[2017-08-25] MEDS ORDERED: Dextrose 50% Syringe 50 ML* 25 GM/50 ML SYRINGE IV PUSH PRN (15:55)
[2017-08-25] MEDS ORDERED: Polyethylene Glycol 3350* 17 GM PACKET PO PRN (15:57)
[2017-08-25] MEDS ORDERED: NS 0.9% 1000 ML* 1,000 ML IV SCH (16:00)
[2017-08-25] MEDS ORDERED: Enoxaparin(*) 40 MG/0.4 ML SYR SUBCUT SCH (16:00)
[2017-08-25] MEDS ORDERED: Albuterol 2.5 MG/3 ML NEB.SOL* (0.083%) INH PRN (16:10)
[2017-08-25] MEDS: Cefepime 2 GM in Dextrose(*) 2 GM/50 ML BAG IV SCH (17:32)
[2017-08-25] MEDS: Fondaparinux* 2.5 MG/0.5 ML SYRINGE SUBCUT SCH (18:00)
[2017-08-25] MEDS: predniSONE TAB* 20 MG PO SCH (18:00)
[2017-08-25] MEDS: Insulin LISPRO* 1 UNITS UNIT SUBCUT SCH (18:01)
--- NOTE | 2017-08-25 20:03 | HP ---
CC: Debora Comer NP * HISTORY AND PHYSICAL: DATE OF ADMISSION: 08/25/17 PRIMARY CARE PROVIDER: Debora Comer NP. ATTENDING PHYSICIAN WHILE IN THE HOSPITAL: Ifrah Andrews MD * (report dictated by Hector Murray NP). CHIEF COMPLAINT: Altered mental status. HISTORY OF PRESENT ILLNESS: I would like to preface this report by stating that the patient does have some significant delirium and confusion. I am really unable to get much history from him. Most of the history was obtained from the patient's 24-hour caregiver who is with the patient. According to her , the patient was acting himself yesterday. There was no reports of fevers, cough, chills. There was no report of shortness of breath. No reports of abdominal discomfort, vomiting, or diarrhea. He was recently discharged from here a week ago for sepsis secondary to cholelithiasis. He possibly had passed stone. He resolved but had significant deconditioning and it was recommended that he go to [facility] for evaluation and PT and OT. The patient had been doing well there, but again today it was noted that he was altered. He really was not acting himself, would not really wake up, was not conversing. There was concern that because of the change in his mental status, he was sent to our ER for evaluation and workup. The patient ultimately was found to have pneumonia. The patient did wake up enough for me. He was talking to me and he did state that he had been coughing in the last couple of days, but this was not reported by staff or by the family. He denies any shortness of breath or chest pain. He was evaluated here, it was found that he had pneumonia on x- ray. In addition to this, he was found to have elevated white count. There was concern for the pneumonia. We were asked to evaluate for admission. PAST MEDICAL HISTORY: Significant for: 1. Sacral decubiti. 2. Dementia. 3. Failure to thrive in the past. 4. Diabetes. 5. Hypothyroidism. 6. Hypertension. 7. COPD. 8. History of upper extremity DVT related to PICC. 9. History of diskitis and osteomyelitis in 2016. 10. Sepsis in 2016. 11. Gout. 12. Peptic ulcer disease. PAST SURGICAL HISTORY: He has had a knee surgery and shoulder surgery. MEDICATIONS: Home meds according to the list that was provided includes: 1. Flomax 0.4 mg p.o. daily. 2. Klor-Con 40 mEq p.o. b.i.d. 3. Protonix 40 mg p.o. b.i.d. 4. Nystatin cream 1 application topically b.i.d. 5. Metformin 500 mg p.o. b.i.d. 6. MiraLAX 17 g p.o. daily as needed. 7. Multivitamin 1 tablet p.o. daily. 8. Synthroid 75 mcg p.o. daily. 9. Colace 100 mg p.o. b.i.d. 10. Vitamin D 1000 units p.o. daily. 11. Aspirin 81 mg daily. ALLERGIES TO MEDICATIONS: Include CODEINE, HEPARIN, DILAUDID, PENICILLIN, XARELTO. FAMILY HISTORY: Unable to be obtained. SOCIAL HISTORY: He does reside at [facility]. Surrogate decision maker is his son, Stephen. He is a former cigar smoker. He does not drink alcohol. REVIEW OF SYSTEMS: There is no documented fever. He denied having any significant weight change. No double vision. No ear discharge. No rhinorrhea. No sore throat. No thyroid enlargement. Denied having any chest pain. There is no orthopnea. No nocturnal dyspnea. No abdominal pain. No nausea. No vomiting. No dysuria. No frequency. No seizure. No loss of consciousness. No pruritus and no skin ulcerations. Review of 14 systems completed, all others negative. PHYSICAL EXAMINATION GENERAL: At this time, Mr. Eagle is an 87-year-old male patient. He is sitting in the stretcher in the ER. He does not appear to be in any acute distress. He appears well nourished, well developed. VITAL SIGNS: Blood pressure 112/66, pulse 70, respirations 15, O2 sat 99%, and temperature 91. HEENT: Head: Atraumatic. Eyes: Sclerae anicteric and not pale. Throat: Oral mucosa appears to be dry. No oropharyngeal erythema. NECK: Supple. LUNGS: He did have crackles noted on his right base and equal diaphragmatic expansion. HEART: Sounds S1, S2. Regular rate and rhythm. No murmurs, rubs, or gallops. ABDOMEN: Soft, flat, nontender. Bowel sounds present. EXTREMITIES: Pulses 2+ throughout. No peripheral edema. He is moving all 4 extremities, 5/5 strength. NEUROLOGIC: He is drowsy but he awakens to his name. He knows his name only. He is confused to the month. When I asked where he was, he said he was in bed. His speech was clear. His tongue is midline. Property Management Specialist were equal. He had no gross focal deficits. Again, just appears to be drowsy. SKIN: Intact. DIAGNOSTIC STUDIES/LAB DATA: WBC 13.5, RBC 4.24, hemoglobin 12.9, hematocrit 39, platelet count 373,000. His INR was 1.17. PTT 29. His sodium 132, potassium 5.2, chloride of 98, bicarb 27, BUN 20, creatinine 1.19, glucose 211, lactic 1, calcium 10.3. Total bili 0.6, AST 11, ALT 7, alk phos 112. Troponin 0.04 which is near his baseline and his albumin was 3.3. Urine showed 1+ protein, 1+ glucose. The patient did have a brain CT obtained today, impression: Cortical atrophy with chronic microvascular ischemic changes. No acute findings. Chest x-ray, impression: Bibasilar hypoventilation with bibasilar infiltrate. EKG today shows a sinus rhythm with a rate of 80. He does appear to have a left bundle-branch block. It was reviewed with his previous EKG, is similar. Old medical records were reviewed. ASSESSMENT AND PLAN: Mr. Eagle is an 87-year-old male patient coming into the ER today with complaints of cough, altered mental status, not feeling well and on evaluation was found to have pneumonia. He will be admitted under inpatient status for: 1. Pneumonia with signs of severe sepsis evidenced by elevated white count. In addition to this, he does have altered mental status. In addition to this, also has some acute renal failure. At this point, he will be receiving cefepime because of the recent hospitalization with Pseudomonas. In addition to this, I will also give him azithromycin. He did receive a dose here in the ED and I will start him on prednisone. He will get a flu swab. In addition to this, we will get Legionella and strep pneumoniae antigens and I will also try to get a sputum culture. 2. Acute renal failure. At this point, it is probably secondary to dehydration , maybe some acute tubular necrosis. I will go ahead and get a FeNa. We will hydrate him. Repeat the BMP in the morning. 3. Hyperkalemia. This is mild. He is on 40 b.i.d., which is probably the culprit. He is not having any EKG changes. I am going to go ahead and repeat the BMP later after hydrating him and see if this comes down and if it does not , then I will treat him for hyperkalemia with calcium gluconate, insulin, dextrose and Kayexalate. 4. Sacral decubitus. We will go ahead and turn and position him every 2 hours and apply dressing as needed. 5. Dementia with some delirium. Go ahead and treat the underlying pneumonia. Continue supportive care. 6. History of diabetes. He will be on a lispro sliding scale. 7. Hypothyroidism. Continue the Synthroid. 8. Hypertension. In the setting of acute illness, I am going to hold his blood pressure meds. We will restart when able. 9. Chronic obstructive pulmonary disease. He does not appear to be wheezing at this point. I will order p.r.n. albuterol and standing nebs and pulmonary toileting. 10. History of deep venous thrombosis. No longer an issue, but we will go ahead and put him on Arixtra given his allergies. 11. Gout. Continue meds as prescribed. 12. History of peptic ulcer disease. Continue meds as prescribed. 13. DVT prophylaxis. Again, he is high risk. He will be placed on Arixtra given his allergies. 14. Code status. He is a DNR/DNI. 15. Fluids, electrolytes, nutrition. He can have a consistent carb diet. TIME SPENT: Time spent on the admission was approximately 60 minutes; greater than half the time was spent [id number] with the patient obtaining my history and physical, other half of the time spent going over the plan of care with the patient and implementing plan of care. I did discuss plan of care with my attending, Dr. Andrews, she is in agreement. HECTOR MURRAY, ANTON [id number]/[facility] #: [id number] KATTY
[2017-08-25] MEDS: Albuterol/Ipratropium NEB.SOL* Albuterol 2.5 MG/Ipratropium 0.5 MG 3 ML INH SCH ×2 (21:14→23:09)
[2017-08-25] MEDS: Mometasone/Formoter 200/5 MDI INH SCH (21:15)
[2017-08-25 21:19] LABS: BUN/Creatinine Ratio 18.4 (8-20); Calcium 9.4 mg/dL (8.6-10.3); EGFR African American 87.9 (>60); EGFR Non-African American 68.3 (>60); Potassium 4.7 mmol/L (3.5-5.0)
[2017-08-25 21:21] LABS: Troponin I 0.03 ng/mL (<0.04)
[2017-08-25] MEDS: Docusate CAP* 100 MG PO SCH (22:05)
[2017-08-25] MEDS: Omeprazole CAP* 20 MG PO SCH (22:05)
[2017-08-26] MEDS: Albuterol/Ipratropium NEB.SOL* Albuterol 2.5 MG/Ipratropium 0.5 MG 3 ML INH SCH ×2 (03:21→08:59)
[2017-08-26] MEDS: Cefepime 2 GM in Dextrose(*) 2 GM/50 ML BAG IV SCH ×2 (05:44→17:46)
[2017-08-26] MEDS: Levothyroxine TAB* 75 MCG TAB PO SCH (05:54)
[2017-08-26 06:32] LABS: Hematocrit 36 % (42-52); Hemoglobin 11.7 g/dl (14.0-18.0); Mean Corpuscular HGB Conc 33 g/dl (31-36); Mean Corpuscular Hemoglobin 30 pg (27-31); Mean Corpuscular Volume 92 fL (80-94); Mean Platelet Volume 9 um3 (7.4-10.4); Red Cell Distribution Width 14 % (10.5-15); White Blood Count 12.4 10^3/ul (3.5-10.8)
[2017-08-26 06:53] LABS: Calcium 9.5 mg/dL (8.6-10.3); EGFR African American 85.9 (>60); EGFR Non-African American 66.8 (>60)
[2017-08-26 07:19] LABS: Potassium 5.1 mmol/L (3.5-5.0)
[2017-08-26] MEDS: Insulin LISPRO* 1 UNITS UNIT SUBCUT SCH ×3 (08:01→19:32)
[2017-08-26] MEDS: Aspirin EC Low Dose* 81 MG TAB.EC PO SCH (08:02)
[2017-08-26] MEDS: Multivitamins/Minerals TAB PO SCH (08:02)
[2017-08-26] MEDS: Omeprazole CAP* 20 MG PO SCH ×2 (08:02→20:36)
[2017-08-26] MEDS: Docusate CAP* 100 MG PO SCH ×2 (08:02→20:35)
[2017-08-26] MEDS: predniSONE TAB* 20 MG PO SCH (08:02)
[2017-08-26] MEDS: Tamsulosin CAP* 0.4 MG PO SCH (08:02)
[2017-08-26] MEDS: Mometasone/Formoter 200/5 MDI INH SCH ×2 (08:59→20:05)
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
[2017-08-26] MEDS ORDERED: Insulin LISPRO* 1 UNITS UNIT SUBCUT ONE ×2 (13:14→19:11)
[2017-08-26 14:11] LABS: Magnesium 1.7 mg/dL (1.9-2.7)
[2017-08-26] MEDS: Azithromycin IV(*) 500 MG in NS 0.9% 250 ML* 250 ML IVPB SCH (15:34)
[2017-08-26] MEDS: Fondaparinux* 2.5 MG/0.5 ML SYRINGE SUBCUT SCH (17:46)
[2017-08-26] MEDS ORDERED: Magnesium Sulfate 2 GM IV* 2 GM/50 ML BAG IVPB ONE (18:57)
[2017-08-26] MEDS ORDERED: Calcium Carbonate CHEW TAB* 500 MG (TUMS) PO ONE (20:30)
[2017-08-26] MEDS ORDERED: Al Hydrox/Mg Hydrox/Simet LIQ* 30 ML UDC PO ONE (22:53)
[2017-08-26] MEDS ORDERED: Lidocaine 2% VISCOUS* 15 ML UDC PO ONE (22:53)
[2017-08-27] MEDS ORDERED: Famotidine IV* 10 MG/ML 2 ML (20 mg) IV SLOW PU ONE (04:12)
[2017-08-27] MEDS: Cefepime 2 GM in Dextrose(*) 2 GM/50 ML BAG IV SCH ×2 (05:43→19:47)
[2017-08-27] MEDS: Levothyroxine TAB* 75 MCG TAB PO SCH (06:23)
[2017-08-27 06:32] LABS: Hematocrit 35 % (42-52); Hemoglobin 11.5 g/dl (14.0-18.0); Mean Corpuscular HGB Conc 33 g/dl (31-36); Mean Corpuscular Hemoglobin 30 pg (27-31); Mean Corpuscular Volume 91 fL (80-94); Mean Platelet Volume 8 um3 (7.4-10.4); Red Blood Count 3.82 10^6/ul (4.0-5.4); Red Cell Distribution Width 14 % (10.5-15); White Blood Count 12.7 10^3/ul (3.5-10.8)
[2017-08-27 06:41] LABS: BUN/Creatinine Ratio 18.9 (8-20); Calcium 9.3 mg/dL (8.6-10.3); EGFR African American 96.4 (>60); Magnesium 2.1 mg/dL (1.9-2.7); Potassium 4.1 mmol/L (3.5-5.0)
[2017-08-27] MEDS: Mometasone/Formoter 200/5 MDI INH SCH ×2 (07:16→20:33)
[2017-08-27] MEDS: Insulin LISPRO* 1 UNITS UNIT SUBCUT SCH ×3 (08:17→17:23)
[2017-08-27] MEDS: Omeprazole CAP* 20 MG PO SCH ×2 (08:19→21:10)
[2017-08-27] MEDS: Multivitamins/Minerals TAB PO SCH (08:19)
[2017-08-27] MEDS: predniSONE TAB* 20 MG PO SCH (08:19)
[2017-08-27] MEDS: Aspirin EC Low Dose* 81 MG TAB.EC PO SCH (08:19)
[2017-08-27] MEDS: Docusate CAP* 100 MG PO SCH ×2 (08:19→21:10)
[2017-08-27] MEDS: Tamsulosin CAP* 0.4 MG PO SCH (08:19)
--- NOTE | 2017-08-27 14:36 | PN ---
Subjective Date of Service: 08/27/17 Interval History: This is an 87 year old male patient with history significant for advanced dementia and multiple comorbidities that was in his usual state of health but became more lethargic at home with his caregiver and increasingly confused over his baseline. He was found to have pneumonia in the ER and has been having some ventricular ectopy and other EKG changes since admission. He was seen and examined, sleepy, somewhat difficult to arouse. Family History: Unchanged from Admission Social History: Unchanged from Admission Past Medical History: Unchanged from Admission Objective Active Medications: Albuterol (Ventolin 2.5 Mg/3 Ml Neb.Mague*) 2.5 mg INH Q2H PRN PRN Reason: SOB/WHEEZING Aspirin (Aspirin Ec Low Dose*) 81 mg PO DAILY [facility] Last Admin: 08/27/17 08:19 Dose: 81 mg Dextrose (D50w Syringe 50 Ml*) 12.5 gm IV PUSH .FOR FS < 60 - SS PRN PRN Reason: FS < 60 Docusate Sodium (Colace Cap*) 100 mg PO BID [facility] Last Admin: 08/27/17 08:19 Dose: 100 mg Fondaparinux (Arixtra*) 2.5 mg SUBCUT Q24H [facility] Last Admin: 08/26/17 17:46 Dose: 2.5 mg Cefepime HCl (Maxipime 2 Gm In Dextrose Duplex (*)) 2 gm in 50 mls @ 100 mls/ hr IV Q12H [facility] Last Admin: 08/27/17 05:43 Dose: 100 mls/hr Azithromycin 500 mg/ Sodium (Chloride) 250 mls @ 250 mls/hr IVPB Q24H [facility] Last Admin: 08/26/17 15:34 Dose: 250 mls/hr Sodium Chloride (Ns 0.9% 1000 Ml*) 1,000 mls @ 75 mls/hr IV PER RATE [facility] Insulin Human Lispro (Humalog*) 0 units SUBCUT AC [facility] PRN Reason: Protocol Last Admin: 08/27/17 12:29 Dose: Not Given Levothyroxine Sodium (Synthroid Tab*) 75 mcg PO DAILY@0600 [facility] Last Admin: 08/27/17 06:23 Dose: 75 mcg Magnesium Chloride (Slow Mag Ec Tab*) 64 mg PO DAILY [facility] Mometasone Furoate/Formoterol Fumar (Dulera 200/5 Mdi*) 2 puff INH BID [facility] Last Admin: 08/27/17 07:16 Dose: 2 puff Multivitamins/Minerals (Theragran/Minerals Tab*) 1 tab PO DAILY [facility] Last Admin: 08/27/17 08:19 Dose: 1 tab Omeprazole (Prilosec Cap*) 20 mg PO BID [facility] Last Admin: 08/27/17 08:19 Dose: 20 mg Polyethylene Glycol/Electrolytes (Miralax*) 17 gm PO DAILY PRN PRN Reason: CONSTIPATION Prednisone (Deltasone Tab*) 40 mg PO DAILY [facility] Last Admin: 08/27/17 08:19 Dose: 40 mg Tamsulosin HCl (Flomax Cap*) 0.4 mg PO DAILY [facility] Last Admin: 08/27/17 08:19 Dose: 0.4 mg Vital Signs 08/26/17 08/26/17 08/26/17 15:11 19:32 20:00 Temperature 97.5 F 97.8 F Pulse Rate 81 84 Respiratory 20 18 18 Rate Blood Pressure 114/73 130/76 (mmHg) O2 Sat by Pulse 100 95 Oximetry 08/26/17 08/27/17 08/27/17 23:49 03:30 07:54 Temperature 97.4 F 98.0 F 97.9 F Pulse Rate 82 104 79 Respiratory 20 20 18 Rate Blood Pressure 131/80 108/79 119/65 (mmHg) O2 Sat by Pulse 100 98 99 Oximetry 08/27/17 08/27/17 08:00 11:24 Temperature 98.3 F Pulse Rate 79 Respiratory 18 18 Rate Blood Pressure 128/72 (mmHg) O2 Sat by Pulse 99 Oximetry Oxygen Devices in Use Now: Nasal Cannula Appearance: sleepy, pale, needs frequent redirection Ears/Nose/Mouth/Throat: - - dry oral mucosa Neck: Trachea Midline Respiratory: - - shallow respirations, course expiration Cardiovascular: - - Prolonged P-R interval, multiform PVCs, ventricular ectopy Abdominal: NL Sounds; No Tenderness; No Distention Extremities: No Clubbing, Cyanosis Skin: - - sacral decubitus, not visualized Neurological: - - sleepy, confused at baseline, general weakness Nutrition: Taking PO's, - - poor PO intake Result Diagrams: 08/27/17 06:10 08/27/17 06:10 Additional Lab and Data: Microbiology and Other Data: Microbiology 08/26/17 04:45 Legionella Urinary Antigen - Final Urine Negative Legionella Streptococcus pneumoniae Ag Screen - Final Negative S. pneumo Antigen 08/26/17 05:00 Gram Stain - Final Sputum Expectorated Diagnostic Imaging: CXR - Left basilar infiltrate Assess/Plan/Problems-Billing Assessment: This is an 87 year old debilitated male with multiple complex comorbid conditions that now presents with left basilar PNA and AMS. - Patient Problems (1) Pneumonia Code(s): J18.9 - PNEUMONIA, UNSPECIFIED ORGANISM SNOMED Code(s): 056265971 Comment: - Trend temps, currently afebrile - Follow cultures NTD - Continue cefepime, azithromycin and prednisone - Will change to scheduled duonebs, as patient has poor cough/respiratiory effort - Continue prednisone - Gentle hydration with NS @75ml/hr (2) CKD (chronic kidney disease) Code(s): N18.9 - CHRONIC KIDNEY DISEASE, UNSPECIFIED SNOMED Code(s): 833883733 Comment: - Baseline stage 2 - Stable creatinine - Continue to monitor daily labs (3) Gout Code(s): M10.9 - GOUT, UNSPECIFIED SNOMED Code(s): 74473667 Comment: - Continue allopurinol (4) COPD (chronic obstructive pulmonary disease) Code(s): J44.9 - CHRONIC OBSTRUCTIVE PULMONARY DISEASE, UNSPECIFIED SNOMED Code(s): 91623110 Comment: - At baseline (5) Decubitus skin ulcer Code(s): L89.90 - PRESSURE ULCER OF UNSPECIFIED SITE, UNSPECIFIED STAGE SNOMED Code(s): 706379115 Comment: - Offload, turn and Q2H - Barrier cream and dressing PRN (6) Dementia Code(s): F03.90 - UNSPECIFIED DEMENTIA WITHOUT BEHAVIORAL DISTURBANCE SNOMED Code(s): 59065147 Comment: - With acute delerium 2/2 PNA; likely exacerbated by infectious process - Continue to reorient as needed - Supportive care (7) Diabetes Code(s): E11.9 - TYPE 2 DIABETES MELLITUS WITHOUT COMPLICATIONS SNOMED Code(s) : 98008217 Comment: - Labile sugars last 24 hours likely 2/2 infection - Continue SS coverage and BG ACHS (8) Hypertension Code(s): I10 - ESSENTIAL (PRIMARY) HYPERTENSION SNOMED Code(s): 89667920 Comment: - Continue to monitor off meds, may restart home meds when needed (9) Hypothyroidism Code(s): E03.9 - HYPOTHYROIDISM, UNSPECIFIED SNOMED Code(s): 38862867 Comment: - TSH 2.4 on 08/06/17 - Continue synthroid for now - Will will recheck TSH and T4 given ectopy and EKG changes (10) Mobitz type 1 second degree AV block Onset Date: ~08/27/17 Code(s): I44.1 - ATRIOVENTRICULAR BLOCK, SECOND DEGREE SNOMED Code(s): 55401630 Comment: - Transient block noted on telemetry - 12 lead unable to capture, but is recorded on strip - Also noted significant ventricular irritabilty throughout the night and day today - Will give 1 gram Mag now, keep K level >4, oral mag starting tomorrow - One troponin now, as patient stated substernal burning early AM - Discussed with cardiology, if any further changes will request consultation Status and Disposition: Continue inpatient treatment with IV atbx, IVF, telemetry and supportive care. Per case mgmt, family wishes patient to go to different facilty at DC? Can be discussed with case managment if they prefer placement other than [place]. For now, patient is not ready for DC, and will likely stay the weekend.
[2017-08-27] MEDS: NS 0.9% 1000 ML* 1,000 ML IV SCH (15:44)
[2017-08-27] MEDS ORDERED: Magnesium Sulfate 1 GM IV* 1 GM/100 ML BAG IV ONE (16:00)
[2017-08-27] MEDS: Azithromycin IV(*) 500 MG in NS 0.9% 250 ML* 250 ML IVPB SCH (16:58)
[2017-08-27] MEDS: Fondaparinux* 2.5 MG/0.5 ML SYRINGE SUBCUT SCH (17:22)
[2017-08-27] MEDS ORDERED: Insulin LISPRO* 1 UNITS UNIT SUBCUT ONE (18:23)
[2017-08-27] MEDS: Albuterol/Ipratropium NEB.SOL* Albuterol 2.5 MG/Ipratropium 0.5 MG 3 ML INH SCH (20:35)
[2017-08-28] MEDS: Albuterol/Ipratropium NEB.SOL* Albuterol 2.5 MG/Ipratropium 0.5 MG 3 ML INH SCH ×4 (02:00→20:24)
[2017-08-28] MEDS: Levothyroxine TAB* 75 MCG TAB PO SCH (05:26)
[2017-08-28] MEDS: Cefepime 2 GM in Dextrose(*) 2 GM/50 ML BAG IV SCH ×2 (05:26→17:59)
[2017-08-28] MEDS: Docusate CAP* 100 MG PO SCH ×2 (07:43→23:04)
[2017-08-28] MEDS: Aspirin EC Low Dose* 81 MG TAB.EC PO SCH (07:43)
[2017-08-28] MEDS: Tamsulosin CAP* 0.4 MG PO SCH (07:43)
[2017-08-28] MEDS: Magnesium Chloride EC TAB* 64 MG PO SCH (07:43)
[2017-08-28] MEDS: Insulin LISPRO* 1 UNITS UNIT SUBCUT SCH ×3 (07:43→17:31)
[2017-08-28] MEDS: predniSONE TAB* 20 MG PO SCH (07:43)
[2017-08-28] MEDS: Omeprazole CAP* 20 MG PO SCH ×2 (07:43→23:04)
[2017-08-28] MEDS: Multivitamins/Minerals TAB PO SCH (07:43)
[2017-08-28] MEDS: Mometasone/Formoter 200/5 MDI INH SCH ×2 (08:32→20:25)
[2017-08-28] MEDS: NS 0.9% 1000 ML* 1,000 ML IV SCH (10:04)
[2017-08-28] MEDS: Insulin GLARGINE(*) 1 UNITS UNIT SUBCUT SCH (14:21)
--- NOTE | 2017-08-28 14:22 | PN ---
Subjective Date of Service: 08/28/17 Interval History: Patient not sure why he's here. Son in room, he understands patient has pneumonia. He report was able to walk 20 ft 2 days ago. He feels father needs to get out of chair, move. Has plan to bring father home next week. Family History: Unchanged from Admission Social History: Unchanged from Admission Past Medical History: Unchanged from Admission Objective Active Medications: Albuterol/Ipratropium (Duoneb (Albuterol 2.5 Mg/Ipratropium 0.5 Mg)) 1 neb INH [id number] AWAKE [facility] Last Admin: 08/28/17 12:42 Dose: Not Given Aspirin (Aspirin Ec Low Dose*) 81 mg PO DAILY [facility] Last Admin: 08/28/17 07:43 Dose: 81 mg Dextrose (D50w Syringe 50 Ml*) 12.5 gm IV PUSH .FOR FS < 60 - SS PRN PRN Reason: FS < 60 Docusate Sodium (Colace Cap*) 100 mg PO BID [facility] Last Admin: 08/28/17 07:43 Dose: 100 mg Fondaparinux (Arixtra*) 2.5 mg SUBCUT Q24H [facility] Last Admin: 08/27/17 17:22 Dose: 2.5 mg Cefepime HCl (Maxipime 2 Gm In Dextrose Duplex (*)) 2 gm in 50 mls @ 100 mls/ hr IV Q12H [facility] Last Admin: 08/28/17 05:26 Dose: 100 mls/hr Azithromycin 500 mg/ Sodium (Chloride) 250 mls @ 250 mls/hr IVPB Q24H [facility] Last Admin: 08/27/17 16:58 Dose: 250 mls/hr Sodium Chloride (Ns 0.9% 1000 Ml*) 1,000 mls @ 75 mls/hr IV PER RATE [facility] Last Admin: 08/28/17 10:04 Dose: 75 mls/hr Insulin Human Lispro (Humalog*) 0 units SUBCUT AC [facility] PRN Reason: Protocol Last Admin: 08/28/17 11:45 Dose: 8 unit Levothyroxine Sodium (Synthroid Tab*) 75 mcg PO DAILY@0600 [facility] Last Admin: 08/28/17 05:26 Dose: 75 mcg Magnesium Chloride (Slow Mag Ec Tab*) 64 mg PO DAILY [facility] Last Admin: 08/28/17 07:43 Dose: 64 mg Mometasone Furoate/Formoterol Fumar (Dulera 200/5 Mdi*) 2 puff INH BID [facility] Last Admin: 08/28/17 08:32 Dose: 2 puff Multivitamins/Minerals (Theragran/Minerals Tab*) 1 tab PO DAILY [facility] Last Admin: 08/28/17 07:43 Dose: 1 tab Omeprazole (Prilosec Cap*) 20 mg PO BID [facility] Last Admin: 08/28/17 07:43 Dose: 20 mg Polyethylene Glycol/Electrolytes (Miralax*) 17 gm PO DAILY PRN PRN Reason: CONSTIPATION Prednisone (Deltasone Tab*) 40 mg PO DAILY [facility] Last Admin: 08/28/17 07:43 Dose: 40 mg Tamsulosin HCl (Flomax Cap*) 0.4 mg PO DAILY [facility] Last Admin: 08/28/17 07:43 Dose: 0.4 mg Vital Signs 08/27/17 08/27/17 08/28/17 19:17 20:00 00:00 Temperature 36.4 C Pulse Rate 80 Respiratory 13 20 Rate Blood Pressure 120/70 (mmHg) O2 Sat by Pulse 99 99 Oximetry 08/28/17 08/28/17 08/28/17 00:08 03:35 07:26 Temperature 36.3 C 36.3 C 36.3 C Pulse Rate 83 80 62 Respiratory 18 18 14 Rate Blood Pressure 126/71 130/74 109/62 (mmHg) O2 Sat by Pulse 99 99 97 Oximetry 08/28/17 08/28/17 08/28/17 08:00 08:45 11:41 Temperature 36.2 C Pulse Rate 72 83 Respiratory 16 16 16 Rate Blood Pressure 110/61 (mmHg) O2 Sat by Pulse 98 95 Oximetry Oxygen Devices in Use Now: None Appearance: no distress Eyes: No Scleral Icterus Ears/Nose/Mouth/Throat: - - poor dentition Neck: Trachea Midline, No Thyroid Enlargement, Masses Respiratory: Clear to Auscultation, Clear to Percussion Cardiovascular: No Edema, - - regular w/ occasional irregularity, 2/6 systolic murmur Abdominal: NL Sounds; No Tenderness; No Distention, No Hepatosplenomegaly Extremities: No Edema Lines/Tubes/Other Access: Clean, Dry and Intact Peripheral IV Nutrition: Taking PO's Result Diagrams: 08/27/17 06:10 08/27/17 06:10 Microbiology and Other Data: Microbiology 08/26/17 04:45 Legionella Urinary Antigen - Final Urine Negative Legionella Streptococcus pneumoniae Ag Screen - Final Negative S. pneumo Antigen 08/26/17 05:00 Gram Stain - Final Sputum Expectorated Diagnostic Imaging: CXR - Left basilar infiltrate Assess/Plan/Problems-Billing Assessment: This is an 87 year old debilitated male with multiple complex comorbid conditions that now presents with left basilar PNA and AMS. - Patient Problems (1) Pneumonia Current Visit: Yes Status: Acute Code(s): J18.9 - PNEUMONIA, UNSPECIFIED ORGANISM SNOMED Code(s): 763391054 Comment: - responding well to cefipime, azithro - on prednisone due to ?COPD exacerbation - tolerating POs, can stop IVF (2) Mobitz type 1 second degree AV block Current Visit: Yes Status: Acute Priority: Medium Onset Date: ~08/27/17 Code(s): I44.1 - ATRIOVENTRICULAR BLOCK, SECOND DEGREE SNOMED Code(s): 91223944 Comment: - Also noted significant ventricular irritabilty throughout the night and day today - Has had Mg and K checked and repleted, PVCs less frequent, will recheck in AM (3) DVT prophylaxis Current Visit: Yes Status: Acute Priority: Low Code(s): DFP7650 - SNOMED Code(s): 353254561 Comment: - 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 - Continue SS coverage and BG ACHS Status and Disposition: Plan is to go home with family if VNS, other aides, arrangements can be made during week.
[2017-08-28] MEDS: Azithromycin IV(*) 500 MG in NS 0.9% 250 ML* 250 ML IVPB SCH (16:43)
[2017-08-28] MEDS: Calcium Carbonate CHEW TAB* 500 MG (TUMS) PO PRN (17:59)
[2017-08-28] MEDS: Fondaparinux* 2.5 MG/0.5 ML SYRINGE SUBCUT SCH (17:59)
[2017-08-29] MEDS: Albuterol/Ipratropium NEB.SOL* Albuterol 2.5 MG/Ipratropium 0.5 MG 3 ML INH SCH ×3 (01:16→12:57)
[2017-08-29] MEDS: Cefepime 2 GM in Dextrose(*) 2 GM/50 ML BAG IV SCH ×2 (05:45→17:31)
[2017-08-29] MEDS: Levothyroxine TAB* 75 MCG TAB PO SCH (05:48)
[2017-08-29 06:32] LABS: Hematocrit 35 % (42-52); Hemoglobin 11.9 g/dl (14.0-18.0); Mean Corpuscular HGB Conc 34 g/dl (31-36); Mean Corpuscular Hemoglobin 30 pg (27-31); Mean Corpuscular Volume 90 fL (80-94); Mean Platelet Volume 8 um3 (7.4-10.4); Red Blood Count 3.91 10^6/ul (4.0-5.4); Red Cell Distribution Width 14 % (10.5-15); White Blood Count 10.6 10^3/ul (3.5-10.8)
[2017-08-29 06:48] LABS: BUN/Creatinine Ratio 23.2 (8-20); Calcium 8.9 mg/dL (8.6-10.3); EGFR African American 114.3 (>60); EGFR Non-African American 88.9 (>60); Magnesium 1.8 mg/dL (1.9-2.7); Potassium 3.7 mmol/L (3.5-5.0)
[2017-08-29 06:55] LABS: Add Diff/Slide Review? Slide Review Added; Comments Flag Yes
[2017-08-29] MEDS: Mometasone/Formoter 200/5 MDI INH SCH ×2 (08:04→19:56)
--- NOTE | 2017-08-29 09:04 | PN ---
Subjective Date of Service: 08/29/17 Interval History: Patient is sleeping, arouses to stimuli, but drifts back to sleep. He denies SOB , chest pain. Overnight and this morning, nursing reports episodes of 2nd degree heart block, type 2 in addition to type 1. EKG was obtained. Family History: Unchanged from Admission Social History: Unchanged from Admission Past Medical History: Unchanged from Admission Objective Active Medications: Albuterol/Ipratropium (Duoneb (Albuterol 2.5 Mg/Ipratropium 0.5 Mg)) 1 neb INH [id number] AWAKE [facility] Last Admin: 08/29/17 08:02 Dose: Not Given Aspirin (Aspirin Ec Low Dose*) 81 mg PO DAILY [facility] Last Admin: 08/28/17 07:43 Dose: 81 mg Calcium Carbonate (Tums*) 500 mg PO Q4H PRN PRN Reason: HEARTBURN Last Admin: 08/28/17 17:59 Dose: 500 mg Dextrose (D50w Syringe 50 Ml*) 12.5 gm IV PUSH .FOR FS < 60 - SS PRN PRN Reason: FS < 60 Docusate Sodium (Colace Cap*) 100 mg PO BID [facility] Last Admin: 08/28/17 23:04 Dose: 100 mg Fondaparinux (Arixtra*) 2.5 mg SUBCUT Q24H [facility] Last Admin: 08/28/17 17:59 Dose: 2.5 mg Cefepime HCl (Maxipime 2 Gm In Dextrose Duplex (*)) 2 gm in 50 mls @ 100 mls/ hr IV Q12H [facility] Last Admin: 08/29/17 05:45 Dose: 100 mls/hr Azithromycin 500 mg/ Sodium (Chloride) 250 mls @ 250 mls/hr IVPB Q24H [facility] Last Admin: 08/28/17 16:43 Dose: 250 mls/hr Sodium Chloride (Ns 0.9% 1000 Ml*) 1,000 mls @ 30 mls/hr IV PER RATE [facility] Magnesium Sulfate (Magnesium Sulfate 2 Gm Iv*) 2 gm in 50 mls @ 50 mls/hr IVPB ONCE ONE Stop: 08/29/17 09:51 Insulin Glargine (Lantus(*)) 15 units SUBCUT Q24H [facility] Last Admin: 08/28/17 14:21 Dose: 15 unit Insulin Human Lispro (Humalog*) 0 units SUBCUT [facility] PRN Reason: Protocol Last Admin: 08/28/17 17:31 Dose: 8 unit Levothyroxine Sodium (Synthroid Tab*) 75 mcg PO DAILY@0600 [facility] Last Admin: 08/29/17 05:48 Dose: 75 mcg Magnesium Chloride (Slow Mag Ec Tab*) 64 mg PO DAILY [facility] Last Admin: 08/28/17 07:43 Dose: 64 mg Mometasone Furoate/Formoterol Fumar (Dulera 200/5 Mdi*) 2 puff INH BID [facility] Last Admin: 08/29/17 08:04 Dose: 2 puff Multivitamins/Minerals (Theragran/Minerals Tab*) 1 tab PO DAILY [facility] Last Admin: 08/28/17 07:43 Dose: 1 tab Omeprazole (Prilosec Cap*) 20 mg PO BID [facility] Last Admin: 08/28/17 23:04 Dose: 20 mg Polyethylene Glycol/Electrolytes (Miralax*) 17 gm PO DAILY PRN PRN Reason: CONSTIPATION Prednisone (Deltasone Tab*) 30 mg PO DAILY [facility] Tamsulosin HCl (Flomax Cap*) 0.4 mg PO DAILY [facility] Last Admin: 08/28/17 07:43 Dose: 0.4 mg Vital Signs 08/28/17 08/29/17 08/29/17 20:00 00:08 01:40 Temperature 36.6 C Pulse Rate 78 69 Respiratory 17 16 16 Rate Blood Pressure 130/78 (mmHg) O2 Sat by Pulse 99 98 Oximetry 08/29/17 08/29/17 08/29/17 03:12 07:40 08:07 Temperature 36.3 C 36.3 C Pulse Rate 73 66 66 Respiratory 16 16 17 Rate Blood Pressure 138/79 120/70 (mmHg) O2 Sat by Pulse 99 98 98 Oximetry Oxygen Devices in Use Now: Nasal Cannula Appearance: sleeping, no distress Ears/Nose/Mouth/Throat: Clear Oropharnyx Respiratory: Clear to Auscultation Cardiovascular: NL Sounds; No Murmurs; No JVD, RRR Abdominal: NL Sounds; No Tenderness; No Distention Extremities: No Edema Neurological: - - sleepy, answers questions w/ few words Lines/Tubes/Other Access: Clean, Dry and Intact Peripheral IV Result Diagrams: 08/29/17 06:21 08/29/17 06:21 Additional Lab and Data: Laboratory Tests 08/29/17 06:21 Magnesium 1.8 L TSH 1.00 Microbiology and Other Data: Microbiology 08/26/17 04:45 Legionella Urinary Antigen - Final Urine Negative Legionella Streptococcus pneumoniae Ag Screen - Final Negative S. pneumo Antigen 08/26/17 05:00 Gram Stain - Final Sputum Expectorated Diagnostic Imaging: CXR - Left basilar infiltrate Assess/Plan/Problems-Billing Assessment: This is an 87 year old debilitated male with multiple complex comorbid conditions that now presents with left basilar pneumonia and delirium. - Patient Problems (1) Pneumonia Current Visit: Yes Status: Acute Priority: High Code(s): J18.9 - PNEUMONIA , UNSPECIFIED ORGANISM SNOMED Code(s): 852487073 Comment: - responding well to cefipime, azithro - on prednisone due to COPD exacerbation, tapered yesterday, will taper again tomorrow - tolerating POs, can stop IVF (2) Mobitz type 1 second degree AV block Current Visit: Yes Status: Acute Priority: Medium Onset Date: ~08/27/17 Code(s): I44.1 - ATRIOVENTRICULAR BLOCK, SECOND DEGREE SNOMED Code(s): 23279604 Comment: - Reviewed tele strips, has 1st degree HB, and periods of 2nd deg type 1, as well as 2nd degree type 2. Discussed case with Dr. Alaniz, he will see for consultation. - Has had Mg and K checked and repleted, will recheck in AM - Will discuss potential need for pacemaker w/ family when they arrive. 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 - Continue SS coverage and BG ACHS Status and Disposition: Plan is to go home with family if VNS, other aides, arrangements can be made during week.
[2017-08-29] MEDS ORDERED: Magnesium Sulfate 2 GM IV* 2 GM/50 ML BAG IVPB ONE (09:15)
[2017-08-29] MEDS: Multivitamins/Minerals TAB PO SCH (09:30)
[2017-08-29] MEDS: Docusate CAP* 100 MG PO SCH ×2 (09:30→20:41)
[2017-08-29] MEDS: Magnesium Chloride EC TAB* 64 MG PO SCH (09:30)
[2017-08-29] MEDS: predniSONE TAB* 10 MG PO SCH (09:30)
[2017-08-29] MEDS: Omeprazole CAP* 20 MG PO SCH ×2 (09:30→20:41)
[2017-08-29] MEDS: Tamsulosin CAP* 0.4 MG PO SCH (09:31)
[2017-08-29] MEDS: Aspirin EC Low Dose* 81 MG TAB.EC PO SCH (09:31)
[2017-08-29] MEDS: Insulin LISPRO* 1 UNITS UNIT SUBCUT SCH ×3 (10:00→17:30)
[2017-08-29] MEDS ORDERED: Albuterol/Ipratropium NEB.SOL* Albuterol 2.5 MG/Ipratropium 0.5 MG 3 ML INH PRN (14:01)
[2017-08-29] MEDS: Insulin GLARGINE(*) 1 UNITS UNIT SUBCUT SCH (14:25)
[2017-08-29] MEDS: Azithromycin IV(*) 500 MG in NS 0.9% 250 ML* 250 ML IVPB SCH (15:45)
[2017-08-29] MEDS: NS 0.9% 1000 ML* 1,000 ML IV SCH (15:48)
[2017-08-29] MEDS: Fondaparinux* 2.5 MG/0.5 ML SYRINGE SUBCUT SCH (17:31)
--- NOTE | 2017-08-29 19:37 | CONS ---
CC: Eleni Alaniz MD; Hospitalist Service CARDIOLOGY CONSULT: DATE OF CONSULT: 08/29/17 HISTORY OF PRESENT ILLNESS: I was asked by hospitalist service to see this 87-year- old male patient who was hospitalized on the with change in mental status. The patient was diagnosed with pneumo flako and sepsis and he does have significant confusion and delirium and dementia. He does have signif icant comorbidities including failure to thrive, diabetes mellitus, hypothyroidism, hypertension, DVT of the upper extremities related to PICC line, sepsis, gout, peptic ulcer disease in the past. Card iology consult was requested because there was some concern of Mobitz-1 second degree AV block and th en there were transient episodes of Mobitz-2 second degree AV block. No syncope and the patient micha ined to have good hemodynamics. The patient, as I indicated is DNR with dementia. He has been treat ed now for his pneumonia with antibiotic treatment with azithromycin and cefepime. History to be obt ained from him is very difficult and challenging, currently he is in the ICU receiving BiPAP and he i s more on the sleepy side. There is no history documented to suggest coronary artery disease or myoca rdial infarction. Initially potassium was elevated, hyperkalemia, and it is 3.7 today. He does arous e to stimuli, but he drifts back to sleep. No chest pain, no shortness of breath, no syncope, no swe lling in the lower extremities, no history of congestive heart failure, no history of coronary artery disease is appreciated. I understand potassium and magnesium has been replaced. PAST MEDICAL HISTORY: His other medical history in the past medical history is as outlined above. PAST SURGICAL HISTORY: He had knee surgery and shoulder surgery. MEDICATIONS: His medications as an inpatient include: 1. Prilosec 20 mg twice a day. 2. DuoNeb treatment. 3. Aspirin 81 mg daily. 4. Azithromycin 500 mg IV piggyback q.24 hours. 5. Calcium 500 mg p.r.n. 6. Colace 100 mg twice a day. 7. Insulin adjusted to sugar. 8. Synthroid 75 mcg daily. 9. Magnesium 64 mg p.o. daily. 10. Multivitamins daily. ALLERGIES: There are allergies to CODEINE, HEPARIN, PENICILLIN, and HYDROMORPHONE. FAMILY HISTORY: No family history of premature coronary artery disease. SOCIAL HISTORY: No history of smoking, drinking, or illicit drug use. He does reside at [place]. REVIEW OF SYSTEMS: His review of all other systems essentially is negative. PHYSICAL EXAMINATION: On exam, he is more sleepy, but he is arousable to stimuli, but he is not in a cute distress. His vitals: Blood pressure is 97/61, pulse 66, sinus rhythm. He is afebrile, 98.2. Head and Neck Exam: Normocephalic, atraumatic head. Ears, nose and throat essentially benign. Nec k: Supple. JVP is not elevated. No carotid bruits. Chest: Diminished air entry bilaterally. Hear t: Normal. S1, S2. No added sounds. No gallops, no rubs. Abdomen: Benign, positive bowel sounds . Extremities: No edema, no cyanosis, no clubbing. TECHNICAL DESIGNER: No focal deficit appreciated. Psych: Di fficult to evaluate because of his lethargy. DIAGNOSTIC STUDIES/LAB DATA: His labs showed the following: White blood cell is 10.6, initially was 13.5; hemoglobin 11.9; hematocrit 35 and platelets 288,000. Chemistry showed sodium 133, potassium 3 .7, chloride 102, total CO2 26, BUN 19, creatinine 0.82, magnesium 1.8. TSH 1, INR 1.17. Other reports; CT of the brain done on 08/25/17 showed cortical atrophy correlates with his age, no a cute findings. Chest x-ray on the , bibasilar hypoventilation with basilar infiltrate. EKG done on the showed him to be in probably sinus rhythm, possible Q's with poor R-wave progres mariana anterolaterally and also inferiorly. His left ventricular systolic function is unknown to me. IMPRESSION: The patient is an 87-year-old frail patient with: 1. Presentation with change in mental status and pneumonia, being treated with antibiotic treatment. 2. Abnormal EKG as described. 3. Mobitz-1 second degree AV block and transient Mobitz-2 second degree AV block. 4. Hypokalemia and hypomagnesemia. 5. Diabetes mellitus. 6. Hypothyroidism. 7. History of sepsis. 8. History of dementia. 9. The patient is DNR. PLAN: The patient does have advanced age comorbidities. He is already DNR. He does have dementia. He has acute illness of pneumonia. He does have borderline low potassium and low magnesium and a tr ansient Mobitz-1 and Mobitz-2 second degree AV block. With his advanced age, I will not be surprised if he has sick sinus syndrome. This cannot be ruled out. Also, with his acute illness of pneumonia and low magnesium, which I understand you are already working on it and correcting them, and agree w ith continuing his antibiotic treatment. I do not have family available around to see how much aggre ssive we need to proceed. I understand no intubation and conservative medical treatment for now. I will not mart into a fast decision of permanent pacemaker until this is fully evaluated and discussed with the patient when he is more awake and with the family as well as when he is recovering from his acute illness of pneumonia and his potassium electrolytes are more well replenished. Thank you very much for asking us to participate in the care of this patient. We will follow closely . [id number]/[facility] #: [id number]
[2017-08-29] MEDS ORDERED: Haloperidol INJ IV/IM* 5 MG/ML AMP IV ONE (21:30)
[2017-08-29] MEDS ORDERED: Haloperidol INJ IV/IM* 5 MG/ML AMP ONE (21:31)
[2017-08-29] MEDS ORDERED: fentaNYL* 50 MCG/ML 2 ML VIAL (100 MCG VIAL) IV ONE (23:00)
[2017-08-29] MEDS ORDERED: fentaNYL* 50 MCG/ML 2 ML VIAL (100 MCG VIAL) ONE (23:09)
[2017-08-30] MEDS: Calcium Carbonate CHEW TAB* 500 MG (TUMS) PO PRN ×2 (01:23→06:27)
[2017-08-30] MEDS: fentaNYL* 50 MCG/ML 2 ML VIAL (100 MCG VIAL) IV PRN ×5 (02:05→17:36)
[2017-08-30] MEDS: Cefepime 2 GM in Dextrose(*) 2 GM/50 ML BAG IV SCH ×2 (05:50→16:59)
[2017-08-30] MEDS: Levothyroxine TAB* 75 MCG TAB PO SCH (05:50)
[2017-08-30 06:09] LABS: BUN/Creatinine Ratio 17.2 (8-20); Calcium 9.1 mg/dL (8.6-10.3); EGFR African American 106.7 (>60); Potassium 3.4 mmol/L (3.5-5.0)
[2017-08-30] MEDS: Tamsulosin CAP* 0.4 MG PO SCH (07:49)
[2017-08-30] MEDS: Multivitamins/Minerals TAB PO SCH (07:49)
[2017-08-30] MEDS: Omeprazole CAP* 20 MG PO SCH ×2 (07:50→21:31)
[2017-08-30] MEDS: Docusate CAP* 100 MG PO SCH ×2 (07:50→21:31)
[2017-08-30] MEDS: predniSONE TAB* 10 MG PO SCH (07:51)
[2017-08-30] MEDS: Aspirin EC Low Dose* 81 MG TAB.EC PO SCH (07:52)
[2017-08-30] MEDS: Insulin LISPRO* 1 UNITS UNIT SUBCUT SCH ×3 (08:07→16:16)
[2017-08-30] MEDS ORDERED: Potassium Chlor TAB* 20 MEQ TAB.ER PO ONE (08:52)
--- NOTE | 2017-08-30 10:10 | PN ---
Subjective Date of Service: 08/30/17 Interval History: Patient seen and examined at bedside. Denies fever, chills, shortness of breath , chest discomfort, N/V/D. Pt states that he doesn't believe he has pneumonia and feels well. Pt is not on oxygen at baseline, continues to require 2L Tele: Sinus rhythm with 1st degree black and intermittent PVCs. Pt also with intermittent 2nd degree HB. rate 60-90's Family History: Unchanged from Admission Social History: Unchanged from Admission Past Medical History: Unchanged from Admission Objective Active Medications: Albuterol/Ipratropium (Duoneb (Albuterol 2.5 Mg/Ipratropium 0.5 Mg)) 1 neb INH Q4H PRN Reason: SOB/WHEEZING Aspirin (Aspirin Ec Low Dose*) 81 mg PO DAILY LILIYA Calcium Carbonate (Tums*) 500 mg PO Q4H PRN Reason: HEARTBURN Dextrose (D50w Syringe 50 Ml*) 12.5 gm IV PUSH .FOR FS < 60 - SS PRN Reason: FS < 60 Docusate Sodium (Colace Cap*) 100 mg PO BID LILIYA Fentanyl Citrate (Fentanyl*) 25 mcg IV Q2H PRN Reason: PAIN Fondaparinux (Arixtra*) 2.5 mg SUBCUT Q24H LILIYA Cefepime HCl (Maxipime 2 Gm In Dextrose Duplex (*)) 2 gm in 50 mls @ 100 mls/ hr IV Q12H LILIYA Azithromycin 500 mg/ Sodium (Chloride) 250 mls @ 250 mls/hr IVPB Q24H LILYIA Sodium Chloride (Ns 0.9% 1000 Ml*) 1,000 mls @ 30 mls/hr IV PER RATE LILIYA Insulin Glargine (Lantus(*)) 15 units SUBCUT Q24H LILIYA Insulin Human Lispro (Humalog*) 0 units SUBCUT AC LILIYA Levothyroxine Sodium (Synthroid Tab*) 75 mcg PO DAILY@0600 LILIYA Magnesium Chloride (Slow Mag Ec Tab*) 64 mg PO DAILY LILIYA Mometasone Furoate/Formoterol Fumar (Dulera 200/5 Mdi*) 2 puff INH BID LILIYA Multivitamins/Minerals (Theragran/Minerals Tab*) 1 tab PO DAILY LILIYA Omeprazole (Prilosec Cap*) 20 mg PO BID LILIYA Polyethylene Glycol/Electrolytes (Miralax*) 17 gm PO DAILY PRN Reason: CONSTIPATION Prednisone (Deltasone Tab*) 30 mg PO DAILY [facility] Tamsulosin HCl (Flomax Cap*) 0.4 mg PO DAILY [facility] Vital Signs 08/29/17 08/29/17 08/29/17 11:00 11:35 11:36 Temperature 98.2 F Pulse Rate 68 73 Respiratory 5 21 20 Rate Blood Pressure 129/74 97/61 (mmHg) O2 Sat by Pulse 100 99 Oximetry 08/29/17 08/29/17 08/29/17 11:45 12:00 12:15 Temperature Pulse Rate 68 70 75 Respiratory 25 18 21 Rate Blood Pressure 97/61 98/65 109/73 (mmHg) O2 Sat by Pulse 99 99 99 Oximetry 08/29/17 08/29/17 08/29/17 12:30 12:46 13:00 Temperature Pulse Rate 78 71 73 Respiratory 19 29 13 Rate Blood Pressure 99/63 102/73 105/65 (mmHg) O2 Sat by Pulse 100 98 98 Oximetry 08/29/17 08/29/17 08/29/17 13:32 13:45 14:00 Temperature Pulse Rate 73 61 47 Respiratory 16 14 7 Rate Blood Pressure 91/60 103/67 99/60 (mmHg) O2 Sat by Pulse 99 98 99 Oximetry 08/29/17 08/29/17 08/29/17 14:15 14:30 14:45 Temperature Pulse Rate 70 57 70 Respiratory 7 11 19 Rate Blood Pressure 104/63 98/64 86/52 (mmHg) O2 Sat by Pulse 98 99 97 Oximetry 08/29/17 08/29/17 08/29/17 14:48 15:00 15:15 Temperature Pulse Rate 66 64 Respiratory 14 16 14 Rate Blood Pressure 97/54 (mmHg) O2 Sat by Pulse 100 100 Oximetry 08/29/17 08/29/17 08/29/17 15:30 15:45 16:00 Temperature Pulse Rate 61 66 74 Respiratory 14 10 10 Rate Blood Pressure 93/56 96/54 106/62 (mmHg) O2 Sat by Pulse 98 100 100 Oximetry 08/29/17 08/29/17 08/29/17 16:15 16:30 16:45 Temperature Pulse Rate 70 71 70 Respiratory 15 23 18 Rate Blood Pressure 115/66 123/74 119/70 (mmHg) O2 Sat by Pulse 99 98 98 Oximetry 11/08/29/17 08/29/17 17:00 17:15 17:30 Temperature Pulse Rate 71 67 67 Respiratory 17 7 19 Rate Blood Pressure 111/64 112/64 88/56 (mmHg) O2 Sat by Pulse 93 98 99 Oximetry 08/29/17 08/29/17 08/29/17 17:33 18:00 18:22 Temperature Pulse Rate 64 67 72 Respiratory 11 19 19 Rate Blood Pressure 112/68 (mmHg) O2 Sat by Pulse 97 96 99 Oximetry 08/29/17 08/29/17 08/29/17 19:00 19:46 20:00 Temperature 98.3 F Pulse Rate 64 74 Respiratory 19 17 Rate Blood Pressure 101/57 100/63 (mmHg) O2 Sat by Pulse 98 95 Oximetry 08/29/17 08/29/17 08/29/17 21:00 22:00 23:00 Temperature Pulse Rate 73 86 83 Respiratory 16 18 18 Rate Blood Pressure 120/72 126/80 137/90 (mmHg) O2 Sat by Pulse 99 99 98 Oximetry 08/29/17 08/29/17 08/29/17 23:25 23:46 23:56 Temperature 98.7 F Pulse Rate 77 Respiratory 18 0 Rate Blood Pressure (mmHg) O2 Sat by Pulse 97 Oximetry 08/30/17 08/30/17 08/30/17 00:00 01:00 02:00 Temperature Pulse Rate 54 79 79 Respiratory 17 17 14 Rate Blood Pressure 126/77 109/76 (mmHg) O2 Sat by Pulse 97 97 95 Oximetry 08/30/17 08/30/17 08/30/17 02:01 02:05 03:00 Temperature Pulse Rate 81 65 Respiratory 16 17 15 Rate Blood Pressure 146/92 112/68 (mmHg) O2 Sat by Pulse 95 95 Oximetry 08/30/17 08/30/17 08/30/17 04:00 05:00 06:00 Temperature Pulse Rate 50 59 80 Respiratory 20 15 17 Rate Blood Pressure 132/83 124/78 (mmHg) O2 Sat by Pulse 93 95 97 Oximetry 08/30/17 08/30/17 08/30/17 06:01 07:00 07:02 Temperature Pulse Rate 81 Respiratory 22 18 16 Rate Blood Pressure 155/83 142/118 (mmHg) O2 Sat by Pulse 96 Oximetry 08/30/17 08/30/17 08/30/17 08:00 08:44 09:00 Temperature Pulse Rate 89 87 Respiratory 17 15 9 Rate Blood Pressure 147/80 139/83 (mmHg) O2 Sat by Pulse 96 95 Oximetry 08/30/17 09:25 Temperature Pulse Rate Respiratory Rate Blood Pressure (mmHg) O2 Sat by Pulse 96 Oximetry Oxygen Devices in Use Now: Nasal Cannula - 2L Appearance: NAD, laying in bed Respiratory: Symmetrical Chest Expansion and Respiratory Effort, Clear to Auscultation Cardiovascular: NL Sounds; No Murmurs; No JVD, RRR Extremities: No Edema Skin: No Rash or Ulcers Neurological: Alert and Oriented x 3, NL Muscle Strength and Tone Lines/Tubes/Other Access: Clean, Dry and Intact Peripheral IV - site benign Nutrition: Taking PO's Result Diagrams: 08/29/17 06:21 08/30/17 05:30 Additional Lab and Data: Laboratory Tests 08/29/17 06:21 Magnesium 1.8 L TSH 1.00 Laboratory Tests 08/30/17 05:30 Potassium 3.4 L Magnesium 2.0 Microbiology and Other Data: Microbiology 08/26/17 04:45 Legionella Urinary Antigen - Final Urine Negative Legionella Streptococcus pneumoniae Ag Screen - Final Negative S. pneumo Antigen 08/26/17 05:00 Gram Stain - Final Sputum Expectorated Diagnostic Imaging: CXR - Left basilar infiltrate Assess/Plan/Problems-Billing Assessment: This is an 87 year old debilitated male with multiple complex comorbid conditions that now presents with left basilar pneumonia and delirium. - Patient Problems (1) Pneumonia Code(s): J18.9 - PNEUMONIA, UNSPECIFIED ORGANISM SNOMED Code(s): 990532671 Comment: - Afebrile, leukocytosis resolved - Suspected sepsis on admission, now ruled out - Blood cultures no growth, day 4 - Urine for legionella and S. Pneumo antigens negative - Sputum culture - normal makeda - On prednisone due to COPD exacerbation, continue taper - Continue cefepime (day 5/7) and azithromycin (day 4/5, last dose today) (2) Mobitz type 1 second degree AV block Code(s): I44.1 - ATRIOVENTRICULAR BLOCK, SECOND DEGREE SNOMED Code(s): 07182752 Comment: - Reviewed tele strips, has 1st degree HB, and periods of 2nd deg type 1, as well as 2nd degree type 2. - Cardiology consult, input appreciated - Has had Mg and K checked and repleted, will recheck in AM - Will need to discuss potential need for pacemaker w/ family when they arrive. (3) Electrolyte abnormality Code(s): E87.8 - OTH DISORDERS OF ELECTROLYTE AND FLUID BALANCE, NEC SNOMED Code(s): 471354574 Comment: - Hyperkalemia - Resolved - Hypokalemia - Will give replacement and recheck labs in AM - hypomagnesemia - Resolved (4) NICO (acute kidney injury) Code(s): N17.9 - ACUTE KIDNEY FAILURE, UNSPECIFIED SNOMED Code(s): 54077046 Comment: - Acute on chronic - Suspect secondary to dehydration - FeNA 0.7%, Resolved with IVFs (5) Decubitus skin ulcer Code(s): L89.90 - PRESSURE ULCER OF UNSPECIFIED SITE, UNSPECIFIED STAGE SNOMED Code(s): 764964561 Comment: - Offload, turn and Q2H - Barrier cream and dressing PRN (6) Dementia Code(s): F03.90 - UNSPECIFIED DEMENTIA WITHOUT BEHAVIORAL DISTURBANCE SNOMED Code(s): 08073749 Comment: - With acute delerium 2/2 PNA; likely exacerbated by infectious process - Continue to reorient as needed - Supportive care (7) Diabetes Code(s): E11.9 - TYPE 2 DIABETES MELLITUS WITHOUT COMPLICATIONS SNOMED Code(s) : 60627188 Comment: - Glucose 130-210's - Continue SS coverage and BG ACHS (8) Hypothyroidism Code(s): E03.9 - HYPOTHYROIDISM, UNSPECIFIED SNOMED Code(s): 43115450 Comment: - TSH 1 on 08/29/17 - Continue synthroid (9) Hypertension Code(s): I10 - ESSENTIAL (PRIMARY) HYPERTENSION SNOMED Code(s): 30320079 Comment: - SBP 100-150's - Continue to monitor off meds, may restart home meds when needed (10) COPD (chronic obstructive pulmonary disease) Code(s): J44.9 - CHRONIC OBSTRUCTIVE PULMONARY DISEASE, UNSPECIFIED SNOMED Code(s): 51447771 Comment: - At baseline - Continue Prednisone taper and nebs (11) CKD (chronic kidney disease) Code(s): N18.9 - CHRONIC KIDNEY DISEASE, UNSPECIFIED SNOMED Code(s): 451518313 Comment: - Baseline stage 2 - Stable creatinine (12) PUD (peptic ulcer disease) Code(s): K27.9 - PEPTIC ULC, SITE UNSP, UNSP AC OR CHR, W/O HEMOR OR PERF SNOMED Code(s): 70383549 Comment: - Continue PPI (13) DVT prophylaxis Code(s): YYM7337 - SNOMED Code(s): 826993040 Comment: -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 Plan is to go home with family if VNS, other aides, arrangements can be made during week.
[2017-08-30] MEDS: Magnesium Chloride EC TAB* 64 MG PO SCH (10:12)
[2017-08-30] MEDS: Mometasone/Formoter 200/5 MDI INH SCH ×2 (10:47→20:20)
[2017-08-30] MEDS ORDERED: LORazepam INJ* 2 MG/ML 1 ML VIAL ONE (14:06)
[2017-08-30] MEDS: Insulin GLARGINE(*) 1 UNITS UNIT SUBCUT SCH (14:37)
[2017-08-30] MEDS: Azithromycin IV(*) 500 MG in NS 0.9% 250 ML* 250 ML IVPB SCH (15:24)
[2017-08-30] MEDS: Fondaparinux* 2.5 MG/0.5 ML SYRINGE SUBCUT SCH (17:04)
[2017-08-31] MEDS: Cefepime 2 GM in Dextrose(*) 2 GM/50 ML BAG IV SCH ×2 (05:44→18:12)
[2017-08-31] MEDS: NS 0.9% 1000 ML* 1,000 ML IV SCH (05:44)
[2017-08-31] MEDS: Levothyroxine TAB* 75 MCG TAB PO SCH (05:45)
[2017-08-31 06:03] LABS: Hematocrit 34 % (42-52); Hemoglobin 11.3 g/dl (14.0-18.0); Mean Corpuscular HGB Conc 33 g/dl (31-36); Mean Corpuscular Hemoglobin 30 pg (27-31); Mean Corpuscular Volume 90 fL (80-94); Mean Platelet Volume 8 um3 (7.4-10.4); Red Blood Count 3.82 10^6/ul (4.0-5.4); Red Cell Distribution Width 14 % (10.5-15); White Blood Count 11.3 10^3/ul (3.5-10.8)
[2017-08-31 06:28] LABS: BUN/Creatinine Ratio 16.9 (8-20); Calcium 8.7 mg/dL (8.6-10.3); EGFR African American 112.7 (>60); EGFR Non-African American 87.6 (>60); Magnesium 1.9 mg/dL (1.9-2.7); Potassium 3.5 mmol/L (3.5-5.0)
[2017-08-31] MEDS: Mometasone/Formoter 200/5 MDI INH SCH ×2 (08:03→20:09)
[2017-08-31] MEDS: predniSONE TAB* 10 MG PO SCH (08:25)
[2017-08-31] MEDS: Magnesium Chloride EC TAB* 64 MG PO SCH (08:25)
[2017-08-31] MEDS: Docusate CAP* 100 MG PO SCH ×2 (08:25→21:24)
[2017-08-31] MEDS: Tamsulosin CAP* 0.4 MG PO SCH (08:25)
[2017-08-31] MEDS: Multivitamins/Minerals TAB PO SCH (08:25)
[2017-08-31] MEDS: Insulin LISPRO* 1 UNITS UNIT SUBCUT SCH ×3 (08:26→18:12)
[2017-08-31] MEDS: Aspirin EC Low Dose* 81 MG TAB.EC PO SCH (08:26)
[2017-08-31] MEDS: Omeprazole CAP* 20 MG PO SCH ×2 (08:26→21:24)
--- NOTE | 2017-08-31 11:49 | PN ---
Subjective Date of Service: 08/31/17 Interval History: Patient seen and examined at bedside. Pt is lethargic at this time, will open eyes to voice with a lot of persistence. Will respond to pain. Unable to perform a ROS at this time. [facility] staff also report that he has been having some periods of apnea. They also report that he was agitated overnight and received Ativan, and had been talking this morning with staff and joking. Discussed with Son Teddy about status of his father and the potential need for a pacemaker. Tele: Sinus rhythm with 1st degree block, rate . Per [facility] staff they have continues to intermittently noted Mobitz II. Family History: Unchanged from Admission Social History: Unchanged from Admission Past Medical History: Unchanged from Admission Objective Active Medications: Albuterol/Ipratropium (Duoneb (Albuterol 2.5 Mg/Ipratropium 0.5 Mg)) 1 neb INH Q4H PRN Reason: SOB/WHEEZING Aspirin (Aspirin Ec Low Dose*) 81 mg PO DAILY LILIYA Calcium Carbonate (Tums*) 500 mg PO Q4H PRN Reason: HEARTBURN Dextrose (D50w Syringe 50 Ml*) 12.5 gm IV PUSH .FOR FS < 60 - SS PRN Reason: FS < 60 Docusate Sodium (Colace Cap*) 100 mg PO BID LILIYA Fentanyl Citrate (Fentanyl*) 25 mcg IV Q2H PRN Reason: PAIN Fondaparinux (Arixtra*) 2.5 mg SUBCUT Q24H LILIYA Haloperidol (Haldol Tab*) 5 mg PO Q6H PRN Reason: AGITATION Cefepime HCl (Maxipime 2 Gm In Dextrose Duplex (*)) 2 gm in 50 mls @ 100 mls/ hr IV Q12H LILIYA Azithromycin 500 mg/ Sodium (Chloride) 250 mls @ 250 mls/hr IVPB Q24H LILIYA Sodium Chloride (Ns 0.9% 1000 Ml*) 1,000 mls @ 30 mls/hr IV PER RATE LILIYA Insulin Glargine (Lantus(*)) 15 units SUBCUT Q24H LILIYA Insulin Human Lispro (Humalog*) 0 units SUBCUT AC LILIYA Levothyroxine Sodium (Synthroid Tab*) 75 mcg PO DAILY@0600 LILIYA Magnesium Chloride (Slow Mag Ec Tab*) 64 mg PO DAILY LILIYA Mometasone Furoate/Formoterol Fumar (Dulera 200/5 Mdi*) 2 puff INH BID [facility] Multivitamins/Minerals (Theragran/Minerals Tab*) 1 tab PO DAILY LILIYA Omeprazole (Prilosec Cap*) 20 mg PO BID LILIYA Polyethylene Glycol/Electrolytes (Miralax*) 17 gm PO DAILY PRN Reason: CONSTIPATION Prednisone (Deltasone Tab*) 30 mg PO DAILY LILIYA Tamsulosin HCl (Flomax Cap*) 0.4 mg PO DAILY [facility] Vital Signs 08/30/17 08/30/17 08/30/17 11:51 12:00 12:14 Temperature 97.9 F Pulse Rate 83 74 Respiratory 16 4 16 Rate Blood Pressure 108/69 (mmHg) O2 Sat by Pulse 99 95 Oximetry 08/30/17 08/30/17 08/30/17 12:41 12:59 13:00 Temperature Pulse Rate 93 97 Respiratory 16 20 13 Rate Blood Pressure 124/81 138/80 (mmHg) O2 Sat by Pulse 99 95 Oximetry 08/30/17 08/30/17 08/30/17 13:31 14:00 14:09 Temperature Pulse Rate 156 Respiratory 16 18 Rate Blood Pressure 130/109 146/86 (mmHg) O2 Sat by Pulse 89 Oximetry 08/30/17 08/30/17 08/30/17 14:30 14:43 14:53 Temperature Pulse Rate 90 78 Respiratory 8 4 0 Rate Blood Pressure 93/58 84/56 86/60 (mmHg) O2 Sat by Pulse 99 98 Oximetry 08/30/17 08/30/17 08/30/17 15:00 15:16 15:31 Temperature Pulse Rate 71 80 88 Respiratory 6 10 15 Rate Blood Pressure 81/61 100/60 138/87 (mmHg) O2 Sat by Pulse 99 95 99 Oximetry 08/30/17 08/30/17 08/30/17 15:45 15:48 15:57 Temperature 98.8 F Pulse Rate 85 Respiratory 18 21 Rate Blood Pressure 102/62 (mmHg) O2 Sat by Pulse 99 Oximetry 08/30/17 08/30/17 08/30/17 16:00 16:15 16:30 Temperature Pulse Rate 79 88 86 Respiratory 9 17 16 Rate Blood Pressure 121/69 110/65 128/79 (mmHg) O2 Sat by Pulse 94 99 99 Oximetry 08/30/17 08/30/17 08/30/17 16:45 16:54 17:00 Temperature Pulse Rate 77 83 Respiratory 13 11 18 Rate Blood Pressure 117/72 119/83 (mmHg) O2 Sat by Pulse 99 99 Oximetry 08/30/17 08/30/17 08/30/17 17:30 17:36 17:38 Temperature Pulse Rate 80 Respiratory 15 16 16 Rate Blood Pressure 107/72 (mmHg) O2 Sat by Pulse 99 Oximetry 08/30/17 08/30/17 08/30/17 17:57 18:00 18:04 Temperature Pulse Rate 84 83 Respiratory 9 17 8 Rate Blood Pressure 89/59 89/61 (mmHg) O2 Sat by Pulse 98 97 Oximetry 08/30/17 08/30/17 08/30/17 18:30 19:00 19:30 Temperature Pulse Rate 79 94 Respiratory 8 15 3 Rate Blood Pressure 102/65 125/80 153/84 (mmHg) O2 Sat by Pulse 99 100 Oximetry 08/30/17 08/30/17 08/30/17 20:00 20:21 20:30 Temperature 98.8 F Pulse Rate 80 75 Respiratory 14 20 Rate Blood Pressure 114/72 123/70 (mmHg) O2 Sat by Pulse 100 100 100 Oximetry 08/30/17 08/30/17 08/30/17 21:00 22:00 22:32 Temperature Pulse Rate 73 83 85 Respiratory 13 11 16 Rate Blood Pressure 128/74 125/77 157/87 (mmHg) O2 Sat by Pulse 100 98 98 Oximetry 08/30/17 08/30/17 08/30/17 23:00 23:19 23:30 Temperature Pulse Rate 79 73 71 Respiratory 9 11 4 Rate Blood Pressure 142/92 134/73 (mmHg) O2 Sat by Pulse 99 100 99 Oximetry 08/31/17 08/31/17 08/31/17 00:00 00:30 01:00 Temperature 99.1 F Pulse Rate 71 65 80 Respiratory 0 0 18 Rate Blood Pressure 138/88 133/84 120/74 (mmHg) O2 Sat by Pulse 100 100 96 Oximetry 08/31/17 08/31/17 08/31/17 01:30 02:00 02:30 Temperature Pulse Rate 77 70 73 Respiratory 14 0 3 Rate Blood Pressure 122/69 143/79 94/60 (mmHg) O2 Sat by Pulse 94 98 96 Oximetry 08/31/17 08/31/17 08/31/17 03:00 03:31 04:00 Temperature Pulse Rate 74 69 69 Respiratory 13 16 24 Rate Blood Pressure 147/89 139/87 112/68 (mmHg) O2 Sat by Pulse 99 98 98 Oximetry 08/31/17 08/31/17 08/31/17 04:30 04:41 05:00 Temperature 97.7 F Pulse Rate 69 53 Respiratory 15 15 Rate Blood Pressure 104/64 113/63 (mmHg) O2 Sat by Pulse 99 94 Oximetry 08/31/17 08/31/17 08/31/17 05:17 05:30 06:00 Temperature 98.2 F Pulse Rate 71 72 Respiratory 24 16 Rate Blood Pressure 138/83 (mmHg) O2 Sat by Pulse 100 97 Oximetry 08/31/17 08/31/17 08/31/17 06:22 06:30 07:00 Temperature Pulse Rate 76 74 61 Respiratory 18 16 8 Rate Blood Pressure 134/77 135/77 121/75 (mmHg) O2 Sat by Pulse 98 97 90 Oximetry 08/31/17 08/31/17 08/31/17 07:30 07:51 08:00 Temperature 98.2 F Pulse Rate 64 67 Respiratory 13 14 Rate Blood Pressure 125/77 125/71 (mmHg) O2 Sat by Pulse 98 99 Oximetry 08/31/17 08/31/17 08/31/17 08:07 08:20 08:30 Temperature Pulse Rate 72 78 Respiratory 16 16 18 Rate Blood Pressure 135/88 (mmHg) O2 Sat by Pulse 98 97 Oximetry 08/31/17 08/31/17 08/31/17 09:00 09:30 11:39 Temperature 99.0 F Pulse Rate 72 78 Respiratory 11 17 Rate Blood Pressure 108/69 133/86 (mmHg) O2 Sat by Pulse 98 98 Oximetry Oxygen Devices in Use Now: Nasal Cannula Appearance: NAD, laying in bed Respiratory: Symmetrical Chest Expansion and Respiratory Effort, Clear to Auscultation - , few crackles in the bases Cardiovascular: NL Sounds; No Murmurs; No JVD, RRR Abdominal: NL Sounds; No Tenderness; No Distention Extremities: No Edema Skin: No Rash or Ulcers Neurological: NL Muscle Strength and Tone, - - Pt lethargic, responds to painful stimulation Lines/Tubes/Other Access: Clean, Dry and Intact Peripheral IV - site benign Nutrition: Taking PO's Result Diagrams: 08/31/17 05:10 08/31/17 05:10 Additional Lab and Data: 08/29/17 06:21 Magnesium 1.8 L TSH 1.00 Laboratory Tests 08/30/17 08/31/17 05:30 05:10 Potassium 3.4 L 3.5 Magnesium 2.0 1.9 Microbiology and Other Data: Microbiology 08/26/17 04:45 Legionella Urinary Antigen - Final Urine Negative Legionella Streptococcus pneumoniae Ag Screen - Final Negative S. pneumo Antigen 08/26/17 05:00 Gram Stain - Final Sputum Expectorated Diagnostic Imaging: CXR - Left basilar infiltrate Assess/Plan/Problems-Billing Assessment: This is an 87 year old debilitated male with multiple complex comorbid conditions that now presents with left basilar pneumonia and delirium. - Patient Problems (1) Pneumonia Code(s): J18.9 - PNEUMONIA, UNSPECIFIED ORGANISM SNOMED Code(s): 342209293 Comment: - Afebrile, leukocytosis resolved - Suspected sepsis on admission, now ruled out - Blood cultures no growth, day 5 - Urine for legionella and S. Pneumo antigens negative - Sputum culture - normal makeda - On prednisone due to COPD exacerbation, continue taper - Continue cefepime (day 6/7) (completed a 5 day course of azithromycin) (2) Mobitz type 1 second degree AV block Code(s): I44.1 - ATRIOVENTRICULAR BLOCK, SECOND DEGREE SNOMED Code(s): 32349117 Comment: - Reviewed tele strips, has 1st degree HB, and periods of 2nd deg type 1, as well as 2nd degree type 2. - Cardiology consult, input appreciated - Continue to follow Mg and K checked and replete as needed, will recheck labs in AM - Dr. Angeles will discuss potential need for pacemaker w/ family later today (3) Electrolyte abnormality Code(s): E87.8 - OTH DISORDERS OF ELECTROLYTE AND FLUID BALANCE, NEC SNOMED Code(s): 700509546 Comment: - Hyperkalemia - Resolved - Hypokalemia - Resolved - hypomagnesemia - Resolved (4) NICO (acute kidney injury) Code(s): N17.9 - ACUTE KIDNEY FAILURE, UNSPECIFIED SNOMED Code(s): 40741056 Comment: - Resolved with IVFs - Acute on chronic - Suspect secondary to dehydration (5) Decubitus skin ulcer Code(s): L89.90 - PRESSURE ULCER OF UNSPECIFIED SITE, UNSPECIFIED STAGE SNOMED Code(s): 135514705 Comment: - Offload, turn and Q2H - Barrier cream and dressing PRN (6) Dementia Code(s): F03.90 - UNSPECIFIED DEMENTIA WITHOUT BEHAVIORAL DISTURBANCE SNOMED Code(s): 39833670 Comment: - With acute delerium and metabolic encephalopathy 2/2 PNA; likely exacerbated by infectious process - Continue to reorient as needed - Supportive care (7) Diabetes Code(s): E11.9 - TYPE 2 DIABETES MELLITUS WITHOUT COMPLICATIONS SNOMED Code(s) : 12792140 Comment: - Glucose 160-340's - Continue SS coverage and BG ACHS (8) Hypothyroidism Code(s): E03.9 - HYPOTHYROIDISM, UNSPECIFIED SNOMED Code(s): 64110255 Comment: - TSH 1 on 08/29/17 - Continue synthroid (9) Hypertension Code(s): I10 - ESSENTIAL (PRIMARY) HYPERTENSION SNOMED Code(s): 43937144 Comment: - SBP 100-130's - Continue to monitor off meds, may restart home meds when needed (10) COPD (chronic obstructive pulmonary disease) Code(s): J44.9 - CHRONIC OBSTRUCTIVE PULMONARY DISEASE, UNSPECIFIED SNOMED Code(s): 11116653 Comment: - At baseline - Continue Prednisone taper and nebs (11) CKD (chronic kidney disease) Code(s): N18.9 - CHRONIC KIDNEY DISEASE, UNSPECIFIED SNOMED Code(s): 251329326 Comment: - Baseline stage 2 - Stable creatinine (12) PUD (peptic ulcer disease) Code(s): K27.9 - PEPTIC ULC, SITE UNSP, UNSP AC OR CHR, W/O HEMOR OR PERF SNOMED Code(s): 06390147 Comment: - Continue PPI (13) DVT prophylaxis Code(s): ILM8941 - SNOMED Code(s): 003559946 Comment: -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 Plan is to go home with family if VNS, other aides, arrangements being made with family.
[2017-08-31] MEDS: Insulin GLARGINE(*) 1 UNITS UNIT SUBCUT SCH (14:02)
[2017-08-31] MEDS: Fondaparinux* 2.5 MG/0.5 ML SYRINGE SUBCUT SCH (18:49)
[2017-08-31] MEDS ORDERED: Magnesium Hydroxide LIQ* 30 ML UDC PO PRN (19:14)
[2017-08-31] MEDS: fentaNYL* 50 MCG/ML 2 ML VIAL (100 MCG VIAL) IV PRN ×2 (21:23→23:21)
[2017-08-31] MEDS: Haloperidol TAB* 5 MG PO PRN (23:23)
[2017-09-01 06:24] LABS: Hematocrit 32 % (42-52); Hemoglobin 10.8 g/dl (14.0-18.0); Mean Corpuscular HGB Conc 34 g/dl (31-36); Mean Corpuscular Hemoglobin 30 pg (27-31); Mean Corpuscular Volume 89 fL (80-94); Mean Platelet Volume 8 um3 (7.4-10.4); Red Blood Count 3.59 10^6/ul (4.0-5.4); Red Cell Distribution Width 14 % (10.5-15); White Blood Count 13.2 10^3/ul (3.5-10.8)
[2017-09-01] MEDS: Cefepime 2 GM in Dextrose(*) 2 GM/50 ML BAG IV SCH ×2 (06:31→18:11)
[2017-09-01] MEDS: Levothyroxine TAB* 75 MCG TAB PO SCH (06:31)
[2017-09-01 06:37] LABS: EGFR African American 111.2 (>60); EGFR Non-African American 86.4 (>60); Potassium 3.4 mmol/L (3.5-5.0)
[2017-09-01] MEDS ORDERED: Perflutren Lipid Microsphere* 3 ML VIAL ONE (08:03)
[2017-09-01] MEDS: Mometasone/Formoter 200/5 MDI INH SCH ×2 (08:41→20:50)
[2017-09-01] MEDS: Tamsulosin CAP* 0.4 MG PO SCH (08:59)
[2017-09-01] MEDS: Omeprazole CAP* 20 MG PO SCH ×3 (09:00→21:04)
[2017-09-01] MEDS: Docusate CAP* 100 MG PO SCH ×3 (09:00→21:04)
[2017-09-01] MEDS: Multivitamins/Minerals TAB PO SCH (09:00)
[2017-09-01] MEDS: predniSONE TAB* 10 MG PO SCH (09:00)
[2017-09-01] MEDS: Insulin LISPRO* 1 UNITS UNIT SUBCUT SCH ×3 (09:00→17:46)
[2017-09-01] MEDS: Aspirin EC Low Dose* 81 MG TAB.EC PO SCH (09:00)
[2017-09-01] MEDS: Magnesium Chloride EC TAB* 64 MG PO SCH ×2 (10:41→10:43)
--- NOTE | 2017-09-01 12:17 | ECHO ---
Patient: DAYNA BRAGG [facility] Rec#: [id number] : 1930 Date: 09/01/2017 Age: 87y Height: 177.8 cm / 70.0 in Weight: 72.1 kg / 158.9 lbs Sex: M BSA: 1.9 Room#: ICU 7 Admit Date#: 08/25/2017 Type: Inpatient Referring: Kd Angeles MD Reading: Jazmyne Rodriguez MD City Jailer: Mone Dias RN RDCS CC: Debora Comer Transthoracic Echocardiogram Indication: Heart block BP: 105/76 HR: 71 Rhythm: NSR with PVCs Findings History: HTN, DM, COPD, hypothyroidism, sepsis, gout, dementia Technical Comments: The study is technically limited due to poor acoustic windows. Completed at 0900. The study is technically limited due to the patient's history of COPD. The study is technically limited due to the patient's smoking history. The study was technically limited due to the patient's inability to lay in the left lateral decubitus position. Imaging using echo enhancement was attempted, but the patient was unable to hold still or cooperate. Left Ventricle: The left ventricular chamber size is normal. Moderate concentric left ventricular hypertrophy is observed. There is a prominent septal knuckle.echo bright, speckled. There is mildly decreased left ventricular systolic function. The estimated ejection fraction is 45-50%. Without contrast LV function appears mildly depressed, with IV contrast LV systolic function appears low normal. There is an E to A reversal in the mitral valve flow pattern suggestive of diastolic dysfunction. Left Atrium: The left atrial chamber size is normal. Right Ventricle: The right ventricular chamber size and systolic function are within normal limits. Right Atrium: The right atrium is not well visualized. Aortic Valve: The aortic valve cusps appear asymmetrical.Unable to confirm if trileaflet, possible raphe. The aortic valve leaflets are mildly thickened. Systolic excursion of the aortic valve cusps is reduced. Mild aortic cusp sclerosis is present. There is a trace of aortic regurgitation. There is no evidence of aortic stenosis. Mitral Valve: The mitral valve leaflets are mildly thickened. There is a trace of mitral regurgitation. There is no evidence of mitral stenosis. Tricuspid Valve: The tricuspid valve structure is not well visualized. There is trace tricuspid regurgitation. Unable to estimate the right ventricular systolic pressure. Pulmonic Valve: The pulmonic valve structure is not well visualized. Pericardium: There is no significant pericardial effusion. A pericardial fat pad is visualized. Aorta: There is mild dilatation of the ascending aorta. The aortic arch is not well visualized. There is mild dilatation of the aortic root. Pulmonary Artery: The main pulmonary artery is not well visualized. Venous: The venous system is not well visualized. The inferior vena cava is not visualized. Contrast: Definity was used to optimize study. A total of 5 ml of diluted Definity was administered IV. Conclusions The study is technically limited due to poor acoustic windows. Completed at 0900. Moderate concentric left ventricular hypertrophy is observed with additional thickening at the base of the septum, echo bright septum. There is mildly decreased left ventricular systolic function, EF 50%. Abnormal diastolic filling pattern. The right ventricular chamber size and systolic function are within normal limits. The aortic valve cusps appear asymmetrical.Unable to confirm if trileaflet, mild sclerosis with good function. There is a trace of aortic regurgitation. There is a trace of mitral regurgitation. There is trace tricuspid regurgitation. There is no significant pericardial effusion. There is mild dilatation of the ascending aorta: 3.7 cm. Compared with prior echo of 04/09/16, no significant change in ventricular and valvular function. Measurements Name Value Normal Range RVDdMajor (2D) 3.6 cm (2.2 - 4.4) RAd ISD 4CH 4.5 cm (3.4 - 4.9) IVSd (2D) 1.7 cm (0.6 - 1) LVPWd (2D) 1.7 cm (0.6 - 1) LVIDd (2D) 4.3 cm (3.6 - 5.4) LVIDs (2D) 3.5 cm - LV FS (2D) 19 % (25 - 45) Aortic Annulus 2.2 cm (1.4 - 2.6) Ao root diameter (2D) 4 cm (2.1 - 3.5) Ascending Ao 3.7 cm (2.1 - 3.4) LA dimension (AP) 2D 3.4 cm (2.3 - 3.8) LAd ISD 4CH 5.4 cm (2.9 - 5.3) LA ISD 4CH W 4.9 cm (2.5 - 4.5) Name Value Normal Range LA ESV SP 4CH (A/L) 79 ml - LA ESV SP 2CH (A/L) 42 ml - LA ESV BP (A/L) 58 ml - LA ESV BP (A/L) index 30.5 ml/m2 - LA ESV SP 4CH (MOD) 76 ml - LA ESV SP 2CH (MOD) 39 ml - Name Value Normal Range MV E-wave Vmax 0.63 m/sec - MV deceleration time 225 msec - MV A-wave Vmax 0.81 m/sec - MV E:A ratio 0.78 ratio - LV septal e' Vmax 0.04 m/sec - LV lateral e' Vmax 0.07 m/sec - LV E:e' septal ratio 15.8 ratio - LV E:e' lateral ratio 9 ratio - Name Value Normal Range AV Vmax 1.2 m/sec - AV VTI 23 cm - AV peak gradient 5.6 mmHg - AV mean gradient 3.3 mmHg - LVOT Vmax 0.79 m/sec - LVOT VTI 15 cm - LVOT peak gradient 2.5 mmHg - LVOT mean gradient 1.4 mmHg -
[2017-09-01] MEDS: Insulin GLARGINE(*) 1 UNITS UNIT SUBCUT SCH (14:13)
--- NOTE | 2017-09-01 16:05 | PN ---
Subjective Date of Service: 09/01/17 - CC: lethargy Interval History: Pt seen on floor, tranferred from ICU. Careg[place] [facility] [place] were in the room and provided history. The patient states there is nothing wrong with his heart, pointed to the suprapubic area when I asked about pain anywhere. Denies dysuria. Medications Active Medications: Albuterol/Ipratropium (Duoneb (Albuterol 2.5 Mg/Ipratropium 0.5 Mg)) 1 neb INH Q4H PRN PRN Reason: SOB/WHEEZING Aspirin (Aspirin Ec Low Dose*) 81 mg PO DAILY [facility] Last Admin: 09/01/17 09:00 Dose: 81 mg Calcium Carbonate (Tums*) 500 mg PO Q4H PRN PRN Reason: HEARTBURN Last Admin: 08/30/17 06:27 Dose: 500 mg Dextrose (D50w Syringe 50 Ml*) 12.5 gm IV PUSH .FOR FS < 60 - SS PRN PRN Reason: FS < 60 Docusate Sodium (Colace Cap*) 100 mg PO BID [facility] Last Admin: 09/01/17 09:00 Dose: 100 mg Fentanyl Citrate (Fentanyl*) 25 mcg IV Q2H PRN PRN Reason: PAIN Last Admin: 08/31/17 23:21 Dose: 25 mcg Fondaparinux (Arixtra*) 2.5 mg SUBCUT Q24H [facility] Last Admin: 08/31/17 18:49 Dose: 2.5 mg Haloperidol (Haldol Tab*) 5 mg PO Q6H PRN PRN Reason: AGITATION Last Admin: 08/31/17 23:23 Dose: 5 mg Heparin Sodium (Porcine) (Heparin Flush Picc/Ml/Cvc(*)) 1 ml FLUSH 0600,1800 [facility] PRN Reason: Protocol Cefepime HCl (Maxipime 2 Gm In Dextrose Duplex (*)) 2 gm in 50 mls @ 100 mls/ hr IV Q12H [facility] Last Admin: 09/01/17 06:31 Dose: 100 mls/hr Sodium Chloride (Ns 0.9% 1000 Ml*) 1,000 mls @ 30 mls/hr IV PER RATE [facility] Last Admin: 08/31/17 05:44 Dose: 30 mls/hr Insulin Glargine (Lantus(*)) 15 units SUBCUT Q24H [facility] Last Admin: 09/01/17 14:13 Dose: 15 unit Insulin Human Lispro (Humalog*) 0 units SUBCUT AC [facility] PRN Reason: Protocol Last Admin: 09/01/17 12:22 Dose: 4 unit Levothyroxine Sodium (Synthroid Tab*) 75 mcg PO DAILY@0600 [facility] Last Admin: 09/01/17 06:31 Dose: 75 mcg Magnesium Chloride (Slow Mag Ec Tab*) 64 mg PO DAILY [facility] Last Admin: 09/01/17 10:43 Dose: Not Given Magnesium Hydroxide (Milk Of Magnesia Liq*) 30 ml PO Q6H PRN PRN Reason: CONSTIPATION Last Admin: 09/01/17 08:59 Dose: 30 ml Mometasone Furoate/Formoterol Fumar (Dulera 200/5 Mdi*) 2 puff INH BID [facility] Last Admin: 09/01/17 08:41 Dose: 2 puff Multivitamins/Minerals (Theragran/Minerals Tab*) 1 tab PO DAILY [facility] Last Admin: 09/01/17 09:00 Dose: 1 tab Omeprazole (Prilosec Cap*) 20 mg PO BID [facility] Last Admin: 09/01/17 09:00 Dose: 20 mg Polyethylene Glycol/Electrolytes (Miralax*) 17 gm PO DAILY PRN PRN Reason: CONSTIPATION Last Admin: 09/01/17 08:59 Dose: 17 gm Prednisone (Deltasone Tab*) 30 mg PO DAILY [facility] Last Admin: 09/01/17 09:00 Dose: 30 mg Tamsulosin HCl (Flomax Cap*) 0.4 mg PO DAILY [facility] Last Admin: 09/01/17 08:59 Dose: 0.4 mg Objective Vital Signs: Temp Pulse Resp BP Pulse Ox 97.5 F 85 16 127/69 95 09/01/17 15:36 09/01/17 15:36 09/01/17 15:36 09/01/17 15:36 09/01/17 15:36 Oxygen Devices in Use Now: None Appearance: elderly male, lying flat in bed, eyes closed but anwers some questions. Appears comfortable. Ears/Nose/Mouth/Throat: Mucous Membranes Moist Neck: NL Appearance and Movements; NL JVP, Trachea Midline Respiratory: Symmetrical Chest Expansion and Respiratory Effort, Clear to Auscultation - anteriorly Cardiovascular: NL Sounds; No Murmurs; No JVD, RRR Abdominal: NL Sounds; No Tenderness; No Distention, No Hepatosplenomegaly Extremities: No Edema, No Clubbing, Cyanosis Skin: No Rash or Ulcers Neurological: - - arousable, answers some questions, follows some commands. Lines/Tubes/Other Access: Clean, Dry and Intact Peripheral IV Laboratory Results: 09/01/17 06:00 09/01/17 06:00 INR (Anticoag Therapy) 1.20 (0.89-1.11) H 08/26/17 05:57 APTT 29.0 seconds (26.0-36.3) 08/25/17 14:05 Total Bilirubin 0.60 mg/dL (0.2-1.0) 08/25/17 14:05 AST 11 U/L (13-39) L 08/25/17 14:05 ALT 7 U/L (7-52) 08/25/17 14:05 Alkaline Phosphatase 112 U/L (34-104) H 08/25/17 14:05 B-Natriuretic Peptide 164 pg/mL (-100) H 08/25/17 14:05 Total Protein 7.8 g/dL (6.4-8.9) 08/25/17 14:05 Albumin 3.3 g/dL (3.2-5.2) 08/25/17 14:05 Globulin 4.5 g/dL (2-4) H 08/25/17 14:05 Albumin/Globulin Ratio 0.7 (1-3) L 08/25/17 14:05 TSH 1.00 mcIU/mL (0.34-5.60) 08/29/17 06:21 08/25/17 08/25/17 08/27/17 17:53 20:52 14:35 Troponin I 0.03 0.03 0.04 H* 08/27/17 18:01 Troponin I 0.04 H* Diagnostic Imaging: ECHO: LVH, EF 50%, septum echo bright (see this with amyloid), good RV function , good valve function. EKG Data: Monitor: NSR, 1st degree AVB, occ PVC's, not seeing the Wenkebach and V triplits seen earlier in admission. Assessment/Plan 87 yo male with dementia, admitted with increased lethargy/delerium found with pneumonia and dehydration, RI. Cardiac issues include 1st degree HB, 2nd degree HB Mobitz 1 (Wenkebach). Echo c/w hypertensive/diabetic heart. 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 Improving overall. No absolute indication for a pacemaker and agree with waiting on further cardiac evaluation until acute infectious process resolved/improved. If f/u on possible amyloid desired, outpatient biopsy of fat pad recommended. Will follow distantly.
--- NOTE | 2017-09-01 17:01 | PN ---
Subjective Date of Service: 09/01/17 Interval History: This is an 87 yo male with COPD, HTN, CKD, PUD and DM who presented with confusion. Admitted with a PNA and transferred to ICU over the weekend with periods of apnea and occasional 2nd degree heart block. Patient has been transferred out of ICU this afternoon. He remains quite confused and lethargic. He was compliant with use of BiPAP overnight which corresponded with no episodes of 2nd degree block. Objective Active Medications: Albuterol/Ipratropium (Duoneb (Albuterol 2.5 Mg/Ipratropium 0.5 Mg)) 1 neb INH Q4H PRN PRN Reason: SOB/WHEEZING Aspirin (Aspirin Ec Low Dose*) 81 mg PO DAILY [facility] Last Admin: 09/01/17 09:00 Dose: 81 mg Calcium Carbonate (Tums*) 500 mg PO Q4H PRN PRN Reason: HEARTBURN Last Admin: 08/30/17 06:27 Dose: 500 mg Dextrose (D50w Syringe 50 Ml*) 12.5 gm IV PUSH .FOR FS < 60 - SS PRN PRN Reason: FS < 60 Docusate Sodium (Colace Cap*) 100 mg PO BID [facility] Last Admin: 09/01/17 09:00 Dose: 100 mg Fentanyl Citrate (Fentanyl*) 25 mcg IV Q2H PRN PRN Reason: PAIN Last Admin: 08/31/17 23:21 Dose: 25 mcg Fondaparinux (Arixtra*) 2.5 mg SUBCUT Q24H [facility] Last Admin: 08/31/17 18:49 Dose: 2.5 mg Haloperidol (Haldol Tab*) 5 mg PO Q6H PRN PRN Reason: AGITATION Last Admin: 08/31/17 23:23 Dose: 5 mg Heparin Sodium (Porcine) (Heparin Flush Picc/Ml/Cvc(*)) 1 ml FLUSH 0600,1800 [facility] PRN Reason: Protocol Cefepime HCl (Maxipime 2 Gm In Dextrose Duplex (*)) 2 gm in 50 mls @ 100 mls/ hr IV Q12H [facility] Last Admin: 09/01/17 06:31 Dose: 100 mls/hr Sodium Chloride (Ns 0.9% 1000 Ml*) 1,000 mls @ 30 mls/hr IV PER RATE [facility] Last Admin: 08/31/17 05:44 Dose: 30 mls/hr Insulin Glargine (Lantus(*)) 15 units SUBCUT Q24H [facility] Last Admin: 09/01/17 14:13 Dose: 15 unit Insulin Human Lispro (Humalog*) 0 units SUBCUT AC [facility] PRN Reason: Protocol Last Admin: 09/01/17 12:22 Dose: 4 unit Levothyroxine Sodium (Synthroid Tab*) 75 mcg PO DAILY@0600 [facility] Last Admin: 09/01/17 06:31 Dose: 75 mcg Magnesium Chloride (Slow Mag Ec Tab*) 64 mg PO DAILY [facility] Last Admin: 09/01/17 10:43 Dose: Not Given Magnesium Hydroxide (Milk Of Magnteddy Liq*) 30 ml PO Q6H PRN PRN Reason: CONSTIPATION Last Admin: 09/01/17 08:59 Dose: 30 ml Mometasone Furoate/Formoterol Fumar (Dulera 200/5 Mdi*) 2 puff INH BID [facility] Last Admin: 09/01/17 08:41 Dose: 2 puff Multivitamins/Minerals (Theragran/Minerals Tab*) 1 tab PO DAILY [facility] Last Admin: 09/01/17 09:00 Dose: 1 tab Omeprazole (Prilosec Cap*) 20 mg PO BID [facility] Last Admin: 09/01/17 09:00 Dose: 20 mg Polyethylene Glycol/Electrolytes (Miralax*) 17 gm PO DAILY PRN PRN Reason: CONSTIPATION Last Admin: 09/01/17 08:59 Dose: 17 gm Prednisone (Deltasone Tab*) 30 mg PO DAILY [facility] Last Admin: 09/01/17 09:00 Dose: 30 mg Tamsulosin HCl (Flomax Cap*) 0.4 mg PO DAILY [facility] Last Admin: 09/01/17 08:59 Dose: 0.4 mg Vital Signs: Temp Pulse Resp BP Pulse Ox 97.5 F 85 16 127/69 95 09/01/17 15:36 09/01/17 15:36 09/01/17 15:36 09/01/17 15:36 09/01/17 15:36 Oxygen Devices in Use Now: None Appearance: Elderly male who is quite lethargic and does not participate in conversation is lying in hospital bed in NAD Respiratory: Symmetrical Chest Expansion and Respiratory Effort, Clear to Auscultation Cardiovascular: NL Sounds; No Murmurs; No JVD, RRR Abdominal: NL Sounds; No Tenderness; No Distention Extremities: No Edema Skin: No Rash or Ulcers Neurological: - - alert Result Diagrams: 09/01/17 06:00 09/01/17 06:00 Additional Lab and Data: 08/29/17 06:21 Magnesium 1.8 L TSH 1.00 Laboratory Tests 08/30/17 08/31/17 05:30 05:10 Potassium 3.4 L 3.5 Magnesium 2.0 1.9 Microbiology and Other Data: Microbiology 08/26/17 04:45 Legionella Urinary Antigen - Final Urine Negative Legionella Streptococcus pneumoniae Ag Screen - Final Negative S. pneumo Antigen 08/26/17 05:00 Gram Stain - Final Sputum Expectorated Diagnostic Imaging: CXR - Left basilar infiltrate Assess/Plan/Problems-Billing Assessment: This is an 87 year old debilitated male with multiple complex comorbid conditions that now presents with left basilar pneumonia and delirium. - Patient Problems (1) Pneumonia Comment: Afebrile Suspected sepsis on admission, now ruled out Blood cultures no growth, day 5 Urine for legionella and S. Pneumo antigens negative Sputum culture - normal makeda Complete cefepime (day 7) (completed a 5 day course of azithromycin) Complete prednisone taper (2) Mobitz type 1 second degree AV block Comment: Appreciate cardiology consultation No plans for pacemaker at this time Family would like to wait and assess following tx for PNA (3) Dementia Comment: With acute delerium and metabolic encephalopathy 2/2 PNA; likely exacerbated by infectious process Continue to reorient as needed Supportive care, utilizing prn Haldol for severe agitation (4) NICO (acute kidney injury) Comment: Mild Resolved with IVFs Secondary to hypovolemia (5) Electrolyte abnormality Comment: Hyperkalemia - Resolved Hypokalemia - Resolved hypomagnesemia - Resolved (6) COPD (chronic obstructive pulmonary disease) Comment: No acute exacerbation (7) Decubitus skin ulcer Comment: Offload, turn and Q2H Barrier cream and dressing PRN (8) Diabetes Comment: Decent glycemic control Continue SS coverage and BG ACHS (9) Hypertension Comment: Normotensive Continue to monitor off meds, may restart home meds when needed (10) Hypothyroidism Comment: TSH WNL on 08/29/17 Continue synthroid (11) PUD (peptic ulcer disease) Comment: Continue PPI (12) DNR (do not resuscitate) (13) DVT prophylaxis Comment: 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 Plan is to go home with family if VNS, other aides, arrangements being made with family.
[2017-09-01] MEDS: Haloperidol TAB* 5 MG PO PRN (18:04)
[2017-09-01] MEDS: Fondaparinux* 2.5 MG/0.5 ML SYRINGE SUBCUT SCH (18:11)
[2017-09-01] MEDS: fentaNYL* 50 MCG/ML 2 ML VIAL (100 MCG VIAL) IV PRN ×2 (20:58→22:55)
[2017-09-02] MEDS: Haloperidol TAB* 5 MG PO PRN (00:40)
[2017-09-02] MEDS: fentaNYL* 50 MCG/ML 2 ML VIAL (100 MCG VIAL) IV PRN (05:00)
[2017-09-02] MEDS ORDERED: Haloperidol INJ IV/IM* 5 MG/ML AMP IV SLOW PU ONE (05:49)
[2017-09-02] MEDS: Levothyroxine TAB* 75 MCG TAB PO SCH (06:05)
[2017-09-02] MEDS: Cefepime 2 GM in Dextrose(*) 2 GM/50 ML BAG IV SCH ×2 (06:57→17:54)
[2017-09-02] MEDS: Mometasone/Formoter 200/5 MDI INH SCH ×2 (08:02→19:43)
[2017-09-02 08:03] LABS: Hematocrit 35 % (42-52); Hemoglobin 11.7 g/dl (14.0-18.0); Mean Corpuscular HGB Conc 34 g/dl (31-36); Mean Corpuscular Hemoglobin 30 pg (27-31); Mean Corpuscular Volume 90 fL (80-94); Mean Platelet Volume 8 um3 (7.4-10.4); Red Blood Count 3.86 10^6/ul (4.0-5.4); Red Cell Distribution Width 14 % (10.5-15); White Blood Count 14.2 10^3/ul (3.5-10.8)
[2017-09-02 08:28] LABS: BUN/Creatinine Ratio 20.7 (8-20); Calcium 9.5 mg/dL (8.6-10.3); EGFR African American 106.7 (>60); Potassium 3.4 mmol/L (3.5-5.0)
[2017-09-02] MEDS: Insulin LISPRO* 1 UNITS UNIT SUBCUT SCH ×3 (09:13→17:29)
[2017-09-02] MEDS: predniSONE TAB* 10 MG PO SCH (09:39)
[2017-09-02] MEDS: Multivitamins/Minerals TAB PO SCH (09:39)
[2017-09-02] MEDS: Aspirin EC Low Dose* 81 MG TAB.EC PO SCH (09:39)
[2017-09-02] MEDS: Tamsulosin CAP* 0.4 MG PO SCH (09:39)
[2017-09-02] MEDS: Magnesium Chloride EC TAB* 64 MG PO SCH (09:39)
[2017-09-02] MEDS: Omeprazole CAP* 20 MG PO SCH ×2 (09:39→21:06)
[2017-09-02] MEDS: Docusate CAP* 100 MG PO SCH ×2 (09:39→21:06)
[2017-09-02] MEDS: Calcium Carbonate CHEW TAB* 500 MG (TUMS) PO PRN (09:51)
[2017-09-02] MEDS: Insulin GLARGINE(*) 1 UNITS UNIT SUBCUT SCH (12:46)
[2017-09-02] MEDS ORDERED: Magnesium CITRATE* 300 ML BTL PO ONE (15:30)
--- NOTE | 2017-09-02 16:45 | PN ---
Subjective Date of Service: 09/02/17 Interval History: Patient was not cooperative with BiPAP overnight. Having occasional 2nd degree heart block, but asx. He is still only occasionally cooperative with nursing care. Required 1 dose of IM Haldol overnight for severe behaviors. No significant episodes of apnea. Objective Active Medications: Albuterol/Ipratropium (Duoneb (Albuterol 2.5 Mg/Ipratropium 0.5 Mg)) 1 neb INH Q4H PRN PRN Reason: SOB/WHEEZING Aspirin (Aspirin Ec Low Dose*) 81 mg PO DAILY [facility] Last Admin: 09/02/17 09:39 Dose: 81 mg Calcium Carbonate (Tums*) 500 mg PO Q4H PRN PRN Reason: HEARTBURN Last Admin: 09/02/17 09:51 Dose: 500 mg Dextrose (D50w Syringe 50 Ml*) 12.5 gm IV PUSH .FOR FS < 60 - SS PRN PRN Reason: FS < 60 Docusate Sodium (Colace Cap*) 100 mg PO BID [facility] Last Admin: 09/02/17 09:39 Dose: 100 mg Fentanyl Citrate (Fentanyl*) 25 mcg IV Q2H PRN PRN Reason: PAIN Last Admin: 09/02/17 05:00 Dose: 25 mcg Fondaparinux (Arixtra*) 2.5 mg SUBCUT Q24H [facility] Last Admin: 09/01/17 18:11 Dose: 2.5 mg Haloperidol (Haldol Tab*) 5 mg PO Q6H PRN PRN Reason: AGITATION Last Admin: 09/02/17 00:40 Dose: 5 mg Heparin Sodium (Porcine) (Heparin Flush Picc/Ml/Cvc(*)) 1 ml FLUSH 0600,1800 [facility] PRN Reason: Protocol Last Admin: 09/02/17 05:59 Dose: 1 ml Cefepime HCl (Maxipime 2 Gm In Dextrose Duplex (*)) 2 gm in 50 mls @ 100 mls/ hr IV Q12H [facility] Last Admin: 09/02/17 06:57 Dose: 100 mls/hr Sodium Chloride (Ns 0.9% 1000 Ml*) 1,000 mls @ 30 mls/hr IV PER RATE [facility] Last Admin: 08/31/17 05:44 Dose: 30 mls/hr Insulin Glargine (Lantus(*)) 15 units SUBCUT Q24H [facility] Last Admin: 09/02/17 12:46 Dose: 15 unit Insulin Human Lispro (Humalog*) 0 units SUBCUT AC [facility] PRN Reason: Protocol Last Admin: 09/02/17 12:46 Dose: 2 unit Levothyroxine Sodium (Synthroid Tab*) 75 mcg PO DAILY@0600 [facility] Last Admin: 09/02/17 06:05 Dose: Not Given Magnesium Chloride (Slow Mag Ec Tab*) 64 mg PO DAILY [facility] Last Admin: 09/02/17 09:39 Dose: 64 mg Magnesium Hydroxide (Milk Of Magnesia Liq*) 30 ml PO Q6H PRN PRN Reason: CONSTIPATION Last Admin: 09/01/17 08:59 Dose: 30 ml Mometasone Furoate/Formoterol Fumar (Dulera 200/5 Mdi*) 2 puff INH BID [facility] Last Admin: 09/02/17 08:02 Dose: 2 puff Multivitamins/Minerals (Theragran/Minerals Tab*) 1 tab PO DAILY [facility] Last Admin: 09/02/17 09:39 Dose: 1 tab Omeprazole (Prilosec Cap*) 20 mg PO BID [facility] Last Admin: 09/02/17 09:39 Dose: 20 mg Polyethylene Glycol/Electrolytes (Miralax*) 17 gm PO DAILY PRN PRN Reason: CONSTIPATION Last Admin: 09/01/17 08:59 Dose: 17 gm Prednisone (Deltasone Tab*) 20 mg PO DAILY [facility] Last Admin: 09/02/17 09:39 Dose: 20 mg Tamsulosin HCl (Flomax Cap*) 0.4 mg PO DAILY [facility] Last Admin: 09/02/17 09:39 Dose: 0.4 mg Vital Signs: Temp Pulse Resp BP Pulse Ox 97.4 F 81 18 120/84 100 09/02/17 15:21 09/02/17 15:21 09/02/17 15:21 09/02/17 15:45 09/02/17 15:21 Oxygen Devices in Use Now: None Appearance: Elderly gentleman who is sleeping, but easily awakened. He is asking for help with calling his son. He is unwilling to participate in a full exam. Neurological: - - alert, unsure of orientation Result Diagrams: 09/02/17 07:42 09/02/17 07:42 Additional Lab and Data: 08/29/17 06:21 Magnesium 1.8 L TSH 1.00 Laboratory Tests 08/30/17 08/31/17 05:30 05:10 Potassium 3.4 L 3.5 Magnesium 2.0 1.9 Microbiology and Other Data: Microbiology 08/26/17 04:45 Legionella Urinary Antigen - Final Urine Negative Legionella Streptococcus pneumoniae Ag Screen - Final Negative S. pneumo Antigen 08/26/17 05:00 Gram Stain - Final Sputum Expectorated Diagnostic Imaging: CXR - Left basilar infiltrate Assess/Plan/Problems-Billing Assessment: This is an 87 year old debilitated male with multiple complex comorbid conditions that now presents with left basilar pneumonia and delirium. - Patient Problems (1) Pneumonia Comment: Afebrile No respiratory complaints Suspected sepsis on admission, now ruled out Blood cultures no growth, day 5 Urine for legionella and S. Pneumo antigens negative Sputum culture - normal makeda Completed course of cefepime and azithromycin Cont prednisone taper (2) Mobitz type 1 second degree AV block Comment: Appreciate cardiology consultation No plans for pacemaker at this time Family would like to wait and assess following tx for PNA (3) Dementia Comment: With acute delerium and metabolic encephalopathy 2/2 PNA; likely exacerbated by infectious process Continue to reorient as needed Supportive care, utilizing prn Haldol for severe agitation (4) NICO (acute kidney injury) Comment: Mild Resolved with IVFs Secondary to hypovolemia (5) Electrolyte abnormality Comment: Hyperkalemia - Resolved Hypokalemia - Resolved hypomagnesemia - Resolved (6) COPD (chronic obstructive pulmonary disease) Comment: No acute exacerbation (7) Decubitus skin ulcer Comment: Offload, turn and Q2H Barrier cream and dressing PRN (8) Diabetes Comment: Decent glycemic control Continue SS coverage and BG ACHS (9) Hypertension Comment: Normotensive Continue to monitor off meds, may restart home meds when needed (10) Hypothyroidism Comment: TSH WNL on 08/29/17 Continue synthroid (11) PUD (peptic ulcer disease) Comment: Continue PPI (12) DNR (do not resuscitate) (13) DVT prophylaxis Comment: 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 Plan is to go home with family if VNS, other aides, arrangements being made with family. Delirium is interfering with ability to provide consistent care. LM with patient's son to discuss discharge planning.
--- NOTE | 2017-09-02 16:58 | RAD ---
INDICATION: Left lower lobe pneumonia COMPARISON: August 25, 2017 TECHNIQUE: PA and lateral dual-energy views were obtained. FINDINGS: Bones/Soft Tissues: There are no acute bony findings. 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 Cardiomediastinal: The cardiac silhouette is enlarged. Lungs: There are minimal residual abnormalities left lung base. There is mild atelectasis in right lung base. Pleura: There are no pleural effusions. Other: None IMPRESSION: IMPROVED AERATION OF THE LEFT LUNG BASE
--- NOTE | 2017-09-02 16:59 | RAD ---
INDICATION: Abdominal pain COMPARISON: August 14, 2017 TECHNIQUE: Erect and supine views of the abdomen are submitted. FINDINGS: Bones: There are no acute bony findings. Soft tissues: The soft tissues appear normal. The psoas margins are sharp. Bowel gas pattern: Normal Calcifications: There are no abnormal calcifications. Other: There is a electronic device/moderate projecting over the left iliac bone. IMPRESSION: NO ACUTE DIAGNOSTIC FINDINGS.
[2017-09-02] MEDS: Fondaparinux* 2.5 MG/0.5 ML SYRINGE SUBCUT SCH (17:54)
[2017-09-03] MEDS: NS 0.9% 1000 ML* 1,000 ML IV SCH (02:30)
[2017-09-03] MEDS: Cefepime 2 GM in Dextrose(*) 2 GM/50 ML BAG IV SCH (06:10)
[2017-09-03] MEDS: Levothyroxine TAB* 75 MCG TAB PO SCH (06:14)
[2017-09-03 07:14] LABS: Hematocrit 35 % (42-52); Hemoglobin 11.7 g/dl (14.0-18.0); Mean Corpuscular HGB Conc 34 g/dl (31-36); Mean Corpuscular Hemoglobin 30 pg (27-31); Mean Corpuscular Volume 89 fL (80-94); Mean Platelet Volume 8 um3 (7.4-10.4); Red Blood Count 3.94 10^6/ul (4.0-5.4); Red Cell Distribution Width 14 % (10.5-15); White Blood Count 11.9 10^3/ul (3.5-10.8)
[2017-09-03 07:30] LABS: BUN/Creatinine Ratio 21.1 (8-20); Calcium 9.3 mg/dL (8.6-10.3); EGFR African American 102.7 (>60); EGFR Non-African American 79.8 (>60); Potassium 3.8 mmol/L (3.5-5.0)
[2017-09-03] MEDS: Insulin LISPRO* 1 UNITS UNIT SUBCUT SCH ×2 (09:26→12:56)
[2017-09-03] MEDS: Multivitamins/Minerals TAB PO SCH ×2 (09:53→10:02)
[2017-09-03] MEDS: Tamsulosin CAP* 0.4 MG PO SCH (09:53)
[2017-09-03] MEDS: Magnesium Chloride EC TAB* 64 MG PO SCH (09:53)
[2017-09-03] MEDS: Aspirin EC Low Dose* 81 MG TAB.EC PO SCH (09:53)
[2017-09-03] MEDS: Omeprazole CAP* 20 MG PO SCH (09:53)
[2017-09-03] MEDS: Docusate CAP* 100 MG PO SCH (09:53)
[2017-09-03] MEDS: predniSONE TAB* 10 MG PO SCH (09:54)
[2017-09-03] MEDS: Mometasone/Formoter 200/5 MDI INH SCH (10:15)
[2017-09-03 15:30] VITALS: BP 95/64
--- NOTE | 2017-09-04 11:57 | DS ---
CC: Debora Comer NP * DISCHARGE SUMMARY: DATE OF ADMISSION: 08/25/17 DATE OF DISCHARGE: 09/03/17 PRIMARY CARE PROVIDER: Debora Comer NP DISCHARGING PROVIDER: YINKA Enriquez SUPERVISING PHYSICIAN: Dr. Ifrah Andrews * (DICTATED BY YINKA ENRIQUEZ) PRIMARY DISCHARGE DIAGNOSES: 1. Pneumonia. 2. Second-degree heart block, intermittent related to hypoxia secondary to sleep apnea. 3. Delirium with mild dementia. 4. Acute kidney injury. 5. Hyperkalemia and hypomagnesemia - now resolved. SECONDARY DISCHARGE DIAGNOSES: 1. Decubitus skin ulcer on his buttocks without associated infection. 2. Diabetes. 3. Hypertension. 4. Hypothyroidism. 5. History of peptic ulcer disease. DISCHARGE MEDICATIONS: 1. Aspirin 81 mg p.o. daily. 2. Vitamin D 1000 units p.o. daily. 3. Docusate 100 mg p.o. twice daily. 4. Levothyroxine 75 mcg p.o. daily. 5. Magnesium chloride 64 mg p.o. daily. 6. Metformin 500 mg p.o. twice daily. 7. Multivitamin one tablet p.o. daily. 8. Nystatin cream apply topically twice daily as needed. 9. Protonix 40 mg p.o. twice daily. 10. MiraLAX 17 g p.o. daily. 11. Prednisone 20 mg x2 days followed by 10 mg x3 days, then stop. 12. Flomax 0.4 mg p.o. daily. Medication changes: 1. Prednisone at a tapering dose as noted above. 2. Start magnesium supplement. HOSPITAL IMAGIN. Chest x-ray, 08/25/17 shows bibasilar hypoventilation with basilar infiltrate. 2. CT of the brain shows cortical atrophy with chronic microvascular ischemic changes. No acute findings noted. 3. Chest x-ray from 09/02/17 shows improved aeration of the left lung base. 4. X-ray of the abdomen shows no acute diagnostic findings. 5. Transthoracic echocardiogram shows moderate LVH with thickening of the base of the septum that appears to be slightly bright on echo, mildly reduced LV function with an EF estimated at 50% and abnormal diastolic filling pattern. Trace regurg of the aortic mitral and tricuspid valve. HOSPITAL COURSE: This is an 87-year-old gentleman with history of COPD, hypertension, diabetes and peptic ulcer disease, who had been admitted in the last month with E. coli bacteremia of biliary source and discharged to [facility] for subacute rehab. The patient returns to the emergency department with altered mental status and was ultimately found to have a left lower lobe pneumonia and was subsequently admitted for appropriate management. Initial labs showed a moderate leukocytosis with a white blood cell count of 13,000. Initial chemistries showed mild hyponatremia, hyperkalemia, slightly elevated creatinine to 1.19, and troponin was elevated to 0.04. Initial lactic acid was normal at 1.1. The patient was subsequently admitted and started on IV antibiotics for a possible healthcare-acquired pathogens and was treated with cefepime and azithromycin. The patient had episodes of acute delirium and was overall combative with most nursing care. He did develop some periods of apnea and second degree heart block for which he was briefly transferred to the ICU for management. Cardiology consultation was obtained. Echocardiogram was completed , which was largely unremarkable with the exception of what looks like slightly bright septum perhaps indicative of amyloidosis. Discussion with the patient's family took place regarding whether or not to pursue pacemaker placement. The patient was found to improve from a cardiac perspective when he was compliant with placement of his BiPAP, but this was difficult to achieve. The patient's family eventually decided against pacemaker placement and the patient remained asymptomatic and hemodynamically stable with intermittent periods of second degree heart block. The patient's mental status really did not improve throughout his hospital stay. He remained quite delirious. He was intermittently cooperative with some staff members, but generally resistant to care. Prior to his hospitalization earlier this month, the patient had been living at home with 24-hour care in his son in the house. He had difficulty with intermittent delirium while at [facility] as well and after discussion with the family, the plan was to have him return to home where hopefully his delirium would begin to clear outside of a structured medical setting. DISPOSITION AND FOLLOWUP PLAN: The patient is being discharged to home. He has 24- hour caretakers there including his son and privately locksmith helper. Referral has also been initiated to [facility]. The patient's children would very much like to avoid future hospitalizations. The patient is DNR status. Discussed the utility of palliative or hospice care to maintain comfort within the home setting and avoid future hospitalizations. Palliative consult will be completed on an outpatient basis. The patient did complete antibiotics during his hospital stay and so further antibiotics are not indicated. We will complete a steroid taper as described above. Recommend close followup with his primary care provider regarding this hospitalization. Could consider amyloidosis is the possibility for his intermittent heart block, but certainly confirmation of this diagnosis would require more invasive testing, which the patient's family is not interested in at this time. TIME SPENT: Greater than 60 minutes was spent on this discharge. YINKA ENRIQUEZ [id number]/[facility] #: [id number]
== END 2017-09-03 14:20 | disposition home health service (06) | DRG 193 ==
LOC: ED 13:33 → MEDTELE 15:47 → ICU 08-29 11:44 → MEDTELE 09-01 15:23
PROVIDERS: ADMIT Internal Medicine; ATTEND Internal Medicine
PROC: 5A09457 Assistance with Respiratory Ventilation, 24-96 Consecutive Hours, Continuous Positive Airway Pressure (ICD-10-PCS; 2017-08-29)
PROC: 02HV33Z Insertion of Infusion Device into Superior Vena Cava, Percutaneous Approach (ICD-10-PCS; principal; 2017-09-01)
DX: J18.9 Pneumonia, unspecified organism (principal); G93.41 Metabolic encephalopathy; L89.319 Pressure ulcer of right buttock, unspecified stage; L89.159 Pressure ulcer of sacral region, unspecified stage; L89.329 Pressure ulcer of left buttock, unspecified stage; N17.9 Acute kidney failure, unspecified; E11.22 Type 2 diabetes mellitus with diabetic chronic kidney disease; F05 Delirium due to known physiological condition; J44.0 Chronic obstructive pulmonary disease with (acute) lower respiratory infection; J44.1 Chronic obstructive pulmonary disease with (acute) exacerbation; E87.5 Hyperkalemia; E83.42 Hypomagnesemia; I44.1 Atrioventricular block, second degree; F03.90 Unspecified dementia, unspecified severity, without behavioral disturbance, psychotic disturbance, mood disturbance, and anxiety; E78.00 Pure hypercholesterolemia, unspecified; N40.0 Benign prostatic hyperplasia without lower urinary tract symptoms; M10.9 Gout, unspecified; Z96.652 Presence of left artificial knee joint; H91.90 Unspecified hearing loss, unspecified ear; R40.2362 Coma scale, best motor response, obeys commands, at arrival to emergency department; R40.2142 Coma scale, eyes open, spontaneous, at arrival to emergency department; R40.2252 Coma scale, best verbal response, oriented, at arrival to emergency department; I44.7 Left bundle-branch block, unspecified; E03.9 Hypothyroidism, unspecified; M19.90 Unspecified osteoarthritis, unspecified site; K27.9 Peptic ulcer, site unspecified, unspecified as acute or chronic, without hemorrhage or perforation; Z66 Do not resuscitate; E87.6 Hypokalemia; I12.9 Hypertensive chronic kidney disease with stage 1 through stage 4 chronic kidney disease, or unspecified chronic kidney disease; N18.2 Chronic kidney disease, stage 2 (mild); I08.3 Combined rheumatic disorders of mitral, aortic and tricuspid valves; G47.30 Sleep apnea, unspecified; R09.02 Hypoxemia; Z79.82 Long term (current) use of aspirin; Z79.84 Long term (current) use of oral hypoglycemic drugs; Z88.6 Allergy status to analgesic agent; Z88.0 Allergy status to penicillin; Z88.8 Allergy status to other drugs, medicaments and biological substances; Z86.718 Personal history of other venous thrombosis and embolism; Z97.4 Presence of external hearing-aid; Z87.891 Personal history of nicotine dependence
CPT/HCPCS: 36415; 70450; 71010; 74000; 80048; 80053; 81003; 81015; 82306; 82570; 82947; 83036; 83605; 83735; 83880; 84300; 84443; 84484; 85025; 85027; 85610; 85730; 86618; 87040; 87070; 87205; 87899; 93005; 93306; 94640; 94660; 94760; A9270-GY; C8929; J0456; J0692; J0696; J1630; J2060; J3010; J3475; J7512